=== PATIENT | female | born 1995 | race Caucasian/White ===

== ENCOUNTER 2017-06-12 21:04 | Emergency (ER) | payer SELFPAY ==
[2017-06-12] MEDS ORDERED: Sodium Chloride 0.9% 1000 ML 1,000 ML IV STA (21:38)
[2017-06-12] MEDS ORDERED: Vancomycin 1GM/ Ns 250ML*** 1 GM/250 ML IVPB IV ONE (21:39)
[2017-06-12] MEDS ORDERED: Sodium Chloride 0.9% 1000 ML 1,000 ML ONE (21:45)
[2017-06-12] MEDS ORDERED: Vancomycin 1GM/ Ns 250ML*** 250 ML IV ONE (21:45)
--- NOTE | 2017-06-12 21:45 | ERPHSYRPT ---
- History of Present Illness Time Seen by Provider: 06/12/17 21:22 Source: patient Exam Limitations: clinical condition Patient Subjective Stated Complaint: Pt reports wound area left breast for a few weeks, increasing in size. Site is warm to touch and red per pt. Denies fevers. Reports taking tylenol this morning. Rates pain 8/10. Describes as pressure. Triage Nursing Assessment: Pt alert, oriented, answers all questions appropriately. SKin pink, warm, dry. Resps non-labored. Pt ambulatory to tx room , steady gait noted. Reddened swollen area noted under left breast. Area very firm and warm to touch. Small open area noted at crease of breast. No active drainage noted. Physician History: PATIENT COMPLAINS OF A LUMP OVER INNER ASPECT OF LEFT BREAST WITH INCREASED SWELLING, REDNESS, AND PAIN OVER PAST 2 WEEK. DENIES FEVER, OR CHILLS. Timing/Duration: week(s), worse Severity: moderate Associated Symptoms: other (PAIN, REDNESS) Allergies/Adverse Reactions: Penicillins Allergy (Severe, Verified 06/12/17 21:15) Swelling Hx Tetanus, Diphtheria Vaccination/Date Given: Yes Hx Influenza Vaccination/Date Given: Yes Hx Pneumococcal Vaccination/Date Given: No Immunizations Up to Date: Yes - Review of Systems Constitutional: No Fever, No Chills Eyes: No Symptoms Ears, Nose, & Throat: No Symptoms Respiratory: No Cough, No Dyspnea Cardiac: No Chest Pain, No Edema, No Syncope Abdominal/Gastrointestinal: No Symptoms, No Abdominal Pain, No Nausea, No Vomiting, No Diarrhea Genitourinary Symptoms: No Symptoms, No Dysuria Musculoskeletal: No Symptoms, No Back Pain, No Neck Pain Skin: Other (LEFT BREAST SWELLING WITH REDNESS), No Rash Neurological: No Dizziness, No Focal Weakness, No Sensory Changes Psychological: No Symptoms Endocrine: No Symptoms All Other Systems: Reviewed and Negative - Past Medical History Pertinent Past Medical History: Yes Neurological History: No Pertinent History ENT History: No Pertinent History Cardiac History: No Pertinent History Respiratory History: No Pertinent History Endocrine Medical History: No Pertinent History Musculoskeletal History: Fractures, Other GI Medical History: No Pertinent History History: No Pertinent History Psycho-Social History: No Pertinent History Female Reproductive Disorders: No Pertinent History Other Medical History: lt arm fx, pancreatitis - Past Surgical History Past Surgical History: No Neuro Surgical History: No Pertinent History Cardiac: No Pertinent History Respiratory: No Pertinent History Gastrointestinal: No Pertinent History Genitourinary: No Pertinent History Musculoskeletal: No Pertinent History Female Surgical History: No Pertinent History - Social History Smoking Status: Never smoker Exposure to second hand smoke: No Alcohol Use: None Drug Use: none Patient Lives Alone: No Significant Family History: no pertinent family hx - Female History Hx Last Menstrual Period: last month Hx Now: No - Nursing Vital Signs Nursing Vital Signs: Initial Vital Signs Temperature 98.1 F 06/12/17 21:11 Pulse Rate 108 H 06/12/17 21:11 Respiratory Rate 16 06/12/17 21:11 Blood Pressure 116/56 06/12/17 21:11 O2 Sat by Pulse Oximetry 98 06/12/17 21:11 Pain Scale Pain Intensity 8 - Physical Exam General Appearance: no apparent distress, alert Eye Exam: PERRL/EOMI, eyes nml inspection Ears, Nose, Throat Exam: normal ENT inspection, TMs normal, pharynx normal, moist mucous membranes Neck Exam: normal inspection, non-tender, supple, full range of motion Respiratory Exam: normal breath sounds, lungs clear, No respiratory distress Cardiovascular Exam: regular rate/rhythm, normal heart sounds, normal peripheral pulses Gastrointestinal/Abdomen Exam: soft, normal bowel sounds, No tenderness, No mass Back Exam: normal inspection, normal range of motion, No CVA tenderness, No vertebral tenderness Extremity Exam: normal inspection, normal range of motion, pelvis stable Neurologic Exam: alert, oriented x 3, cooperative, normal mood/affect, nml cerebellar function, nml station & gait, sensation nml, No motor deficits Skin Exam: warm, dry, other (CHEST WALL, LEFT BREAST THERE IS AN NONFLUCTUANT SWELLLIN 1CM X 1CM OVER THE INNER LOWER QUADRANT OF LEFT BREAST WITH SURROUNDING ERYTHEMA 2.5CM X 3CM, NO DRAINAGE NOTED), No rash Lymphatic Exam: No adenopathy SpO2: 98 Oxygen Delivery: Room Air Ordered Tests: Active Orders 24 hr Category Date Time Status IV Insertion STAT Care 06/12/17 22:04 Active BLOOD CULTURE Stat Lab 06/12/17 22:00 Received CBC W DIFF Stat Lab 06/12/17 22:00 Completed Medication Summary Generic Name Dose Route Start Last Admin Trade Name Freq PRN Reason Stop Dose Admin Sodium Chloride 1,000 mls @ 999 mls/hr 06/12/17 21:38 06/12/17 21:48 Sodium Chloride 0.9% 1000 Ml IV 06/12/17 22:38 999 mls/hr .Q1H1M STA Administration Vancomycin HCl 1 gm in 250 mls @ 167 mls/hr 06/12/17 21:39 06/12/17 21:48 Vancomycin 1gm/ Ns 250ml IV 06/12/17 23:08 167 mls/hr STAT ONE Administration Discontinued Medications Generic Name Dose Route Start Last Admin Trade Name Swapna PRN Reason Stop Dose Admin Sodium Chloride Confirm 06/12/17 21:45 Sodium Chloride 0.9% 1000 Ml Administered 06/12/17 21:46 Dose 1,000 mls @ ud .ROUTE .STK-MED ONE Vancomycin HCl Confirm 06/12/17 21:45 Vancomycin 1gm/ Ns 250ml Administered 06/12/17 21:46 Dose 250 mls @ ud IV .STK-MED ONE Lab/Rad Data: Laboratory Result Diagrams 06/12/17 22:00 Laboratory Results 06/12/17 Range/Units 22:00 WBC 9.6 (4.0-10.5) K/mm3 RBC 4.47 (4.1-5.4) M/mm3 Hgb 11.6 L (12.0-16.0) gm/dl Hct 35.4 (35-47) % MCV 79.2 (78-100) fl MCH 25.9 L (26-32) pg MCHC 32.8 (32-36) g/dl RDW 14.1 H (11.5-14.0) % Plt Count 293 (150-450) K/mm3 MPV 9.6 H (6-9.5) fl Gran % 65.3 (36.0-66.0) % Lymphocytes % 26.9 (24.0-44.0) % Monocytes % 6.5 (0.0-12.0) % Eosinophils % 1.0 (0.00-5.0) % Basophils % 0.3 (0.0-0.4) % Basophils # 0.03 (0-0.4) - Progress Progress: unchanged Progress Note: 06/12/17 21:45 AFTER 2 SETS OF BLOOD CULTURES, VANCOMYCIN 1GM IVPB AND IV NORMAL SALINE 1 LITER WIDE OPEN. Counseled pt/family regarding: lab results, diagnosis, need for follow-up - Departure Time of Disposition: 22:45 Departure Disposition: Home Clinical Impression: LEFT BREAST CELLULITIS Condition: Stable Critical Care Time: No Referrals: AUDREY COPPOLA [Primary Care Provider] - Additional Instructions: BEGIN ANTIBIOTIC CLINDAMYCIN 300MG EVERY 8 HOURS FOR 10 DAYS. NORCO 10/325 EVERY 4 HOURS FOR PAIN NEEDED. CONSULT YOUR PRIMARY CARE PROVIDER FOR EVALUATION IN 3 DAYS FOR APPOINTMENT. TYLENOL OR MOTRIN NEEDED FOR FEVER. Prescriptions: Hydrocodone/APAP 10/325 mg [[place] 10/325 MG Tablet] 1 tab PO Q4H PRN PRN # 15 tablet MDD 4 PRN Reason: Moderate Pain Clindamycin HCl 300 mg PO TID #30 capsule
[2017-06-12 22:10] LABS: BASOPHIL % 0.3 % (0.0-0.4); Granulocytes % 65.3 % (36.0-66.0); Lymphocytes % 26.9 % (24.0-44.0); Mean Cell Volume 79.2 fl (78-100); Mean Platelet Volume 9.6 fl (6-9.5); Monocytes % 6.5 % (0.0-12.0); Platelet Count 293 K/mm3 (150-450); Red Blood Count 4.47 M/mm3 (4.1-5.4); Red Cell Distribution Width 14.1 % (11.5-14.0); White Blood Count 9.6 K/mm3 (4.0-10.5)
[2017-06-12 22:11] LABS: Mean Corpuscular Hemoglobin 25.9 pg (26-32)
[2017-06-12] MEDS ORDERED: NORCO 5/325 MG PO ONE (22:46)
[2017-06-12] MEDS ORDERED: NORCO 5/325 MG ONE (23:27)
[2017-06-12] MEDS ORDERED: BENADRYL 50 MG/ML IV ONE (23:32)
[2017-06-12] MEDS ORDERED: solu-MEDROL 125 MG IV ONE (23:32)
[2017-06-12] MEDS ORDERED: solu-MEDROL 125 MG ONE (23:38)
[2017-06-12] MEDS ORDERED: BENADRYL 50 MG/ML ONE (23:38)
[2017-06-13 00:17] VITALS: BP 108/73; PULSE 87; O2SAT 100
== END 2017-06-13 00:16 | disposition home or self-care (01) ==
LOC: ED 21:04
DX: N61.0 Mastitis without abscess (principal); T36.8X5A Adverse effect of other systemic antibiotics, initial encounter
CPT/HCPCS: 36000; 36415; 85025; 87040; 96360; 96374; 96375; 99284; J1200; J2930; J3370; A9270-GY

== ENCOUNTER 2018-09-04 03:45 | Emergency (ER) | payer MEDICAID ==
[2018-09-04] MEDS ORDERED: Pepcid 20 MG VIAL IV ONE (04:22)
[2018-09-04 04:37] LABS: Appearance CLEAR (CLEAR); Bilirubin NEGATIVE (NEGATIVE); Blood NEGATIVE Ery/ul (0-5); Glucose NEGATIVE (NEGATIVE); Ketones NEGATIVE (NEGATIVE); Leukocyte Esterase NEGATIVE (NEGATIVE); Mucus SLIGHT /HPF (NEGATIVE); Nitrite NEGATIVE (NEGATIVE); Protein,Urine Dip NEGATIVE (Negative); Specific Gravity 1.011 (1.005-1.025); Urobilinogen NEGATIVE mg/dL (0-1)
[2018-09-04 05:25] LABS: BASOPHIL % 0.2 % (0.0-0.4); Basophil (Absolute #) 0.02 (0-0.4); Eosinophil % 1.3 % (0.00-5.0); Eosinophil (Absolute #) 0.15 (0-0.5); Granulocyte Absolute (ANC) 7.63 (1.4-6.9); Granulocytes % 68.6 % (36.0-66.0); Hematocrit 34.5 % (35-47); Hemoglobin 11.3 gm/dl (12.0-16.0); Lymphocyte (Absolute #) 2.63 (1.0-4.6); Lymphocytes % 23.7 % (24.0-44.0); Mean Cell Volume 79.9 fl (78-100); Mean Corpuscular Hgb Concent. 32.8 g/dl (32-36); Monocyte (Absolute #) 0.69 (0.0-1.3); Monocytes % 6.2 % (0.0-12.0); Platelet Count 270 K/mm3 (150-450); Red Blood Count 4.32 M/mm3 (4.1-5.4); White Blood Count 11.1 K/mm3 (4.0-10.5)
[2018-09-04 05:27] LABS: Mean Corpuscular Hemoglobin 26.1 pg (26-32)
[2018-09-04 05:36] LABS: ALBUMIN 4.5 g/dL (3.5-5.0); ALKALINE PHOSPHATASE 75 U/L (38-126); AMYLASE 66 U/L (30-110); ANION GAP 14.7 MEQ/L (5-15); BLOOD UREA NITROGEN 14 mg/dL (7-17); CHLORIDE 101 mmol/L (98-107); Calcium 9.3 mg/dL (8.4-10.2); Carbon Dioxide 25 mmol/L (22-30); Creatinine 1 0.63 mg/dL (0.52-1.04); Glucose 133 mg/dL (74-106); LIPASE 72 U/L (23-300); Potassium 3.8 mmol/L (3.5-5.1); SGOT/AST 16 U/L (14-36); SGPT/ALT 20 U/L (0-35); SODIUM 136 mmol/L (137-145); Total Protein 7.6 g/dL (6.3-8.2)
[2018-09-04] MEDS: Sodium Chloride 0.9% 1000 ML 1,000 ML IV STA ×2 (06:07→07:28)
[2018-09-04] MEDS ORDERED: Pepcid 20 MG PO ONE (06:08)
[2018-09-04] MEDS: Zofran 4 MG/2 ML VIAL IV ONE ×2 (06:08→07:28)
[2018-09-04] MEDS ORDERED: Pepcid 20 MG ONE (06:09)
[2018-09-04] MEDS ORDERED: Zofran 4 MG/2 ML VIAL ONE (07:20)
[2018-09-04] MEDS ORDERED: Sodium Chloride 0.9% 1000 ML 1,000 ML ONE (07:21)
--- NOTE | 2018-09-04 07:51 | XRAY ---
Indication: Abdomen pain and nausea. History of pancreatitis. Multiple contiguous axial images obtained through the abdomen and pelvis using 80 cc Isovue 370 contrast. Comparison: March 17, 2014. Lung bases are clear. Heart is not enlarged. Noncontrasted stomach and bowel loops appear nonobstructed. Normal appendix. New small pelvic and right lower quadrant free fluid. No walled off fluid collection or free air. Remaining liver, gallbladder, pancreas, spleen, adrenal glands, kidneys, ureters, bladder, uterus, and aorta appear unremarkable. No pathologic retroperitoneal lymphadenopathy. Osseous structures intact. No ventral or inguinal hernias. Impression: 1. New small pelvic and right lower quadrant free fluid of uncertain etiology. Normal-appearing appendix. 2. Remaining CT abdomen/pelvis with contrast exam is negative. Comment: Preliminary interpretation was made by [facility]. No discrepancy. CTDI 23.27
--- NOTE | 2018-09-04 07:56 | ERPHSYRPT ---
- History of Present Illness Historian: patient Exam Limitations: no limitations Patient Subjective Stated Complaint: pt is alert and oriented. pt is ambulatory with a steady gait. pt comes in with c/o abd pain beginning around 0000 of . pt states that she's having generalized abd pain. upon palpation her pain is in her RUQ and LLQ. pt bowel sounds present x4. pt states she has be nauseous but denies vomiting and diarrhea. Triage Nursing Assessment: see above Physician History: Pt is a 22 y/o female that presented to the ED with complains of diffuse abdominal pain. Pt has nausea, but no vomiting. No F/C/S. No SOB or cough. No chest pain or palpitations. Pt denies chest discomfort, or palpitations. No dysuria, frequency or urgency. Timing/Duration: today Activities at Onset: none Quality: aching Abdominal Pain Onset Location: generalized abdomen Pain Radiation: no radiation Severity of Pain-Max: mild Severity of Pain-Current: mild Modifying Factors: Improves With: analgesics Associated Symptoms: denies symptoms Previous symptoms: no prior history Allergies/Adverse Reactions: Penicillins Allergy (Severe, Verified 06/12/17 21:15) Swelling Home Medications: No Reportable Medications [No Reported Medications] 09/04/18 [History] Hx Tetanus, Diphtheria Vaccination/Date Given: Yes Hx Influenza Vaccination/Date Given: Yes Hx Pneumococcal Vaccination/Date Given: No Immunizations Up to Date: Yes - Review of Systems Constitutional: No Fever, No Chills Eyes: No Symptoms Ears, Nose, & Throat: No Symptoms Respiratory: No Cough, No Dyspnea Cardiac: No Chest Pain, No Edema, No Syncope Abdominal/Gastrointestinal: Abdominal Pain, Nausea Genitourinary Symptoms: No Dysuria Musculoskeletal: No Back Pain, No Neck Pain Neurological: No Dizziness, No Focal Weakness, No Sensory Changes - Past Medical History Pertinent Past Medical History: Yes Neurological History: No Pertinent History ENT History: No Pertinent History Cardiac History: No Pertinent History Respiratory History: No Pertinent History Endocrine Medical History: No Pertinent History Musculoskeletal History: Fractures, Other GI Medical History: Pancreatitis History: No Pertinent History Psycho-Social History: No Pertinent History Female Reproductive Disorders: No Pertinent History Other Medical History: lt arm fx, pancreatitis - Past Surgical History Past Surgical History: No Neuro Surgical History: No Pertinent History Cardiac: No Pertinent History Respiratory: No Pertinent History Gastrointestinal: No Pertinent History Genitourinary: No Pertinent History Musculoskeletal: No Pertinent History Female Surgical History: No Pertinent History - Social History Smoking Status: Never smoker Exposure to second hand smoke: No Alcohol Use: None Drug Use: none Patient Lives Alone: No Significant Family History: no pertinent family hx - Female History Hx Now: No - Nursing Vital Signs Nursing Vital Signs: Initial Vital Signs Temperature 98.4 F 09/04/18 03:53 Pulse Rate 94 H 09/04/18 03:53 Respiratory Rate 18 09/04/18 03:53 Blood Pressure 108/79 09/04/18 03:53 O2 Sat by Pulse Oximetry 95 09/04/18 03:53 Pain Scale Pain Intensity 5 - Physical Exam General Appearance: no apparent distress, alert Eye Exam: PERRL/EOMI, eyes nml inspection Ears, Nose, Throat Exam: normal ENT inspection, pharynx normal, moist mucous membranes Neck Exam: normal inspection, non-tender, supple, full range of motion Respiratory Exam: normal breath sounds, lungs clear, No respiratory distress Cardiovascular Exam: regular rate/rhythm, normal heart sounds Gastrointestinal/Abdomen Exam: tenderness (Mild, diffused) Extremity Exam: normal inspection, normal range of motion, pelvis stable Neurologic Exam: alert, oriented x 3, cooperative, normal mood/affect, nml cerebellar function, sensation nml, No motor deficits SpO2: 99 - Course Nursing assessment & vital signs reviewed: Yes - CT Exams Abdomen/Pelvis CT Interpretation: Negative Ordered Tests: Active Orders 24 hr Category Date Time Status IV Insertion STAT Care 09/04/18 04:22 Active ABDOMEN AND PELVIS W CONTRAST [CT] Stat Exams 09/04/18 04:23 Taken AMYLASE Stat Lab 09/04/18 05:20 Completed CBC W DIFF Stat Lab 09/04/18 05:20 Completed CMP Stat Lab 09/04/18 05:20 Completed HCG,QUALITATIVE URINE Stat Lab 09/04/18 04:00 Completed LIPASE Stat Lab 09/04/18 05:20 Completed UA W/RFX UR CULTURE Stat Lab 09/04/18 04:00 Completed Medication Summary Discontinued Medications Generic Name Dose Route Start Last Admin Trade Name Freq PRN Reason Stop Dose Admin Famotidine 20 mg 09/04/18 04:22 09/04/18 06:07 Pepcid 20 Mg Vial IV 09/04/18 04:23 Not Given STAT ONE Famotidine 40 mg 09/04/18 06:08 09/04/18 06:11 Pepcid 20 Mg PO 09/04/18 06:09 40 mg STAT ONE Administration Famotidine Confirm 09/04/18 06:09 Pepcid 20 Mg Administered 09/04/18 06:10 Dose 40 mg .ROUTE .STK-MED ONE Sodium Chloride 1,000 mls @ 999 mls/hr 09/04/18 04:22 09/04/18 07:28 Sodium Chloride 0.9% 1000 Ml IV 09/04/18 05:22 999 mls/hr .Q1H1M STA Administration Sodium Chloride Confirm 09/04/18 07:21 Sodium Chloride 0.9% 1000 Ml Administered 09/04/18 07:22 Dose 1,000 mls @ ud .ROUTE .STK-MED ONE Ondansetron HCl 4 mg 09/04/18 04:22 09/04/18 07:28 Zofran 4 Mg/2 Ml Vial IV 09/04/18 04:23 4 mg STAT ONE Administration Ondansetron HCl Confirm 09/04/18 07:20 Zofran 4 Mg/2 Ml Vial Administered 09/04/18 07:21 Dose 4 mg .ROUTE .STK-MED ONE Lab/Rad Data: Laboratory Result Diagrams 09/04/18 05:20 09/04/18 05:20 Laboratory Results 09/04/18 09/04/18 09/04/18 Range/Units 05:20 05:20 04:00 WBC 11.1 H (4.0-10.5) K/mm3 RBC 4.32 (4.1-5.4) M/mm3 Hgb 11.3 L (12.0-16.0) gm/dl Hct 34.5 L (35-47) % MCV 79.9 (78-100) fl MCH 26.1 (26-32) pg MCHC 32.8 (32-36) g/dl RDW 14.0 (11.5-14.0) % Plt Count 270 (150-450) K/mm3 MPV 9.0 (6-9.5) fl Gran % 68.6 H (36.0-66.0) % Eos # (Auto) 0.15 (0-0.5) Absolute Lymphs (auto) 2.63 (1.0-4.6) Absolute Monos (auto) 0.69 (0.0-1.3) Lymphocytes % 23.7 L (24.0-44.0) % Monocytes % 6.2 (0.0-12.0) % Eosinophils % 1.3 (0.00-5.0) % Basophils % 0.2 (0.0-0.4) % Absolute Granulocytes 7.63 H (1.4-6.9) Basophils # 0.02 (0-0.4) Sodium 136 L (137-145) mmol/L Potassium 3.8 (3.5-5.1) mmol/L Chloride 101 (98-107) mmol/L Carbon Dioxide 25 (22-30) mmol/L Anion Gap 14.7 (5-15) MEQ/L BUN 14 (7-17) mg/dL Creatinine 0.63 (0.52-1.04) mg/dL Estimated GFR > 60.0 ML/MIN Glucose 133 H (74-106) mg/dL Calcium 9.3 (8.4-10.2) mg/dL Total Bilirubin 0.30 (0.2-1.3) mg/dL AST 16 (14-36) U/L ALT 20 (0-35) U/L Alkaline Phosphatase 75 (38-126) U/L Serum Total Protein 7.6 (6.3-8.2) g/dL Albumin 4.5 (3.5-5.0) g/dL Amylase 66 (30-110) U/L Lipase 72 (23-300) U/L Urine Color (YELLOW) Urine Appearance (CLEAR) Urine pH (5-6) Ur Specific [place] (1.005-1.025) Urine Protein (Negative) Urine Ketones (NEGATIVE) Urine Blood (0-5) He/ul Urine Nitrite (NEGATIVE) Urine Bilirubin (NEGATIVE) Urine Urobilinogen (0-1) mg/dL Ur Leukocyte Esterase (NEGATIVE) Urine WBC (Auto) (0-5) /HPF Urine RBC (Auto) (0-2) /HPF U Epithel Cells (Auto) (FEW) /HPF Urine Bacteria (Auto) (NEGATIVE) /HPF Urine Mucus (Auto) (NEGATIVE) /HPF Urine Culture Reflexed (NO) Urine Glucose (NEGATIVE) mg/dL Urine HCG, Qual NEGATIVE (Negative) 09/04/18 Range/Units 04:00 WBC (4.0-10.5) K/mm3 RBC (4.1-5.4) M/mm3 Hgb (12.0-16.0) gm/dl Hct (35-47) % MCV (78-100) fl MCH (26-32) pg MCHC (32-36) g/dl RDW (11.5-14.0) % Plt Count (150-450) K/mm3 MPV (6-9.5) fl Gran % (36.0-66.0) % Eos # (Auto) (0-0.5) Absolute Lymphs (auto) (1.0-4.6) Absolute Monos (auto) (0.0-1.3) Lymphocytes % (24.0-44.0) % Monocytes % (0.0-12.0) % Eosinophils % (0.00-5.0) % Basophils % (0.0-0.4) % Absolute Granulocytes (1.4-6.9) Basophils # (0-0.4) Sodium (137-145) mmol/L Potassium (3.5-5.1) mmol/L Chloride (98-107) mmol/L Carbon Dioxide (22-30) mmol/L Anion Gap (5-15) MEQ/L BUN (7-17) mg/dL Creatinine (0.52-1.04) mg/dL Estimated GFR ML/MIN Glucose (74-106) mg/dL Calcium (8.4-10.2) mg/dL Total Bilirubin (0.2-1.3) mg/dL AST (14-36) U/L ALT (0-35) U/L Alkaline Phosphatase (38-126) U/L Serum Total Protein (6.3-8.2) g/dL Albumin (3.5-5.0) g/dL Amylase (30-110) U/L Lipase (23-300) U/L Urine Color STRAW (YELLOW) Urine Appearance CLEAR (CLEAR) Urine pH 5.0 (5-6) Ur Specific [place] 1.011 (1.005-1.025) Urine Protein NEGATIVE (Negative) Urine Ketones NEGATIVE (NEGATIVE) Urine Blood NEGATIVE (0-5) He/ul Urine Nitrite NEGATIVE (NEGATIVE) Urine Bilirubin NEGATIVE (NEGATIVE) Urine Urobilinogen NEGATIVE (0-1) mg/dL Ur Leukocyte Esterase NEGATIVE (NEGATIVE) Urine WBC (Auto) NONE (0-5) /HPF Urine RBC (Auto) NONE (0-2) /HPF U Epithel Cells (Auto) NONE (FEW) /HPF Urine Bacteria (Auto) NONE (NEGATIVE) /HPF Urine Mucus (Auto) SLIGHT (NEGATIVE) /HPF Urine Culture Reflexed NO (NO) Urine Glucose NEGATIVE (NEGATIVE) mg/dL Urine HCG, Qual (Negative) - Progress Progress: improved Progress Note: 09/04/18 07:54 Pt was evaluated in the ED. Her labs are normal, besides a minimal leukocytosis , that can be related to ruptured ovarian cyst. CT of abdomen does not show any pathology, but some fluid secondary to ovarian cyst, that probably ruptured. Pt was cleared to d/c to home. She can use OTC Ibuprofen as needed for pain. Pt should f/u with PCP next week. Will see patient in: office Counseled pt/family regarding: need for follow-up - Departure Time of Disposition: 07:56 Departure Disposition: Home Clinical Impression: Abdominal pain Condition: Stable Critical Care Time: No Referrals: AUDREY COPPOLA [Primary Care Provider] - Additional Instructions: F/U with PCP next week. Use Ibuprofen on as needed basis for pain.
[2018-09-04 08:16] VITALS: BP 115/68; PULSE 71; O2SAT 98
== END 2018-09-04 08:16 | disposition home or self-care (01) ==
LOC: ED 03:45
DX: R10.11 Right upper quadrant pain (principal); R10.32 Left lower quadrant pain; R11.0 Nausea; D72.829 Elevated white blood cell count, unspecified; N83.209 Unspecified ovarian cyst, unspecified side
CPT/HCPCS: 36000; 36415; 74177; 80053; 81001; 82150; 83690; 84703; 85025; 96374; 99284; J2405; A9270-GY

== ENCOUNTER 2019-02-13 13:03 | Emergency (ER) | payer MEDICAID ==
--- NOTE | 2019-02-13 13:34 | ERPHSYRPT ---
- History of Present Illness Time Seen by Provider: 02/13/19 13:19 Source: patient Exam Limitations: no limitations Patient Subjective Stated Complaint: PT states "On wednesday, my child was diagnosed with impetigo and I think I have it now. 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 Pt has red dots on feet, legs, arms and torso. Physician History: Pt states, her daughter was diagnosed with Impetigo 3 days ago, she noticed few exanthems on her legs and arms at the same time ( her mother is here with similar symptoms) She denies cough,SOB, chest pain, nausea, headaches, fever, throat swelling or other complaints. She took Benadryl, denies other medications. Timing/Duration: day(s) (3) Quality: itchy Severity: mild Location: extremities Possible Causes: no cause identified Modifying Factors: Improves With: antihistamine Associated Symptoms: denies symptoms Allergies/Adverse Reactions: Penicillins Allergy (Severe, Verified 06/12/17 21:15) Swelling Hx Tetanus, Diphtheria Vaccination/Date Given: No Hx Influenza Vaccination/Date Given: Yes Hx Pneumococcal Vaccination/Date Given: No Immunizations Up to Date: Yes - Review of Systems Constitutional: No Symptoms Eyes: No Symptoms Ears, Nose, & Throat: No Symptoms Respiratory: No Symptoms Cardiac: No Symptoms Abdominal/Gastrointestinal: No Symptoms Genitourinary Symptoms: No Symptoms Musculoskeletal: No Symptoms Skin: Pruritis, Rash All Other Systems: Reviewed and Negative - Past Medical History Pertinent Past Medical History: Yes Neurological History: No Pertinent History ENT History: No Pertinent History Cardiac History: No Pertinent History Respiratory History: No Pertinent History Endocrine Medical History: No Pertinent History Musculoskeletal History: Fractures, Other GI Medical History: Pancreatitis History: No Pertinent History Psycho-Social History: No Pertinent History Female Reproductive Disorders: No Pertinent History Other Medical History: lt arm fx, pancreatitis - Past Surgical History Past Surgical History: No Neuro Surgical History: No Pertinent History Cardiac: No Pertinent History Respiratory: No Pertinent History Gastrointestinal: No Pertinent History Genitourinary: No Pertinent History Musculoskeletal: No Pertinent History Female Surgical History: No Pertinent History - Social History Smoking Status: Former smoker Exposure to second hand smoke: No Alcohol Use: None Drug Use: none Patient Lives Alone: No Significant Family History: no pertinent family hx - Female History Hx Last Menstrual Period: 01/16/2019 Hx Now: No - Nursing Vital Signs Nursing Vital Signs: Initial Vital Signs Temperature 98.4 F 02/13/19 13:14 Pulse Rate 102 H 02/13/19 13:14 Respiratory Rate 18 02/13/19 13:14 Blood Pressure 123/79 02/13/19 13:14 O2 Sat by Pulse Oximetry 98 02/13/19 13:14 Pain Scale Pain Intensity 0 - Physical Exam General Appearance: no apparent distress Eye Exam: eyes nml inspection Ears, Nose, Throat Exam: normal ENT inspection, pharynx normal, moist mucous membranes Neck Exam: normal inspection, non-tender, supple, No JVD Cardiovascular Exam: regular rate/rhythm, normal heart sounds, normal peripheral pulses, capillary refill <2 sec, No murmur Gastrointestinal/Abdomen Exam: soft, normal bowel sounds, No tenderness Back Exam: normal inspection, No CVA tenderness Extremity Exam: normal inspection, No calf tenderness, No pedal edema Neurologic Exam: alert, oriented x 3, cooperative, normal mood/affect Skin Exam: normal color, warm, dry, rash (few, solitary, few mm, pink exanthems , some with slight scaling on the top on few, no blisters, other lesions, no pustules, good distal pulses and sensation.) Lymphatic Exam: No adenopathy, No axilla node tender (L), No axilla node tender (R), No inguinal node tender (L), No inguinal node tender (R) SpO2 Interpretation: normal SpO2: 99 O2 Delivery: Room Air - Course Nursing assessment & vital signs reviewed: Yes - Progress Progress: unchanged Progress Note: 02/13/19 13:32 Pt was reassured about the benign nature of her exanthems ( possible insect bites, without any sign of infection) she was discharged on Medrol Dosepak, to rest x 1-2 days, drink plenty of fluids, and continue Benadryl and externals as needed, follow up with her physician if not better in 2-3 days. Counseled pt/family regarding: diagnosis, need for follow-up - Departure Departure Disposition: Home Clinical Impression: Rash and nonspecific skin eruption Condition: Stable Critical Care Time: No Referrals: AUDREY COPPOLA [Primary Care Provider] - Instructions: Insect Bites and Stings (DC), Impetigo (DC), Folliculitis (DC) Additional Instructions: Rest x 2-3 days, drink plenty of fluids, and use Benadryl, externals as needed, follow up with your physician if not better in 2-3 days, return if severe pain, swelling, difficulty breathing or fever> 102 F! Prescriptions: Methylprednisolone Packet [Medrol Dosepack] 4 mg PO UD #1 packet
[2019-02-13 13:57] VITALS: BP 120/74; PULSE 74; O2SAT 98
== END 2019-02-13 14:04 | disposition home or self-care (01) ==
LOC: ED 13:03
DX: R21 Rash and other nonspecific skin eruption (principal)
CPT/HCPCS: 99283

== ENCOUNTER 2019-02-28 13:19 | Emergency (ER) | payer MEDICAID ==
[2019-02-28 13:26] VITALS: BP 145/73; PULSE 86; O2SAT 98
--- NOTE | 2019-02-28 13:36 | ERPHSYRPT ---
- History of Present Illness Source: patient Exam Limitations: no limitations Patient Subjective Stated Complaint: Pt states "I have a wisdom tooth coming in and the dentist cannot get me in until 2 weeks but now my lower jaw is swollen and I am having a hard time eating." Triage Nursing Assessment: Pt presented alert and oriented X 3, skin pwd. Pt ambulates with an upright steady gait, able to speak in clear full sentences. Pt in no apparent respiratory distress. Physician History: Pt is a 23 y/o female that presented to the ED with complains of tooth ache and swelling of the R side of the mandible. Pt states, she is not able to chew on that side, and she has swollen gums, and cheek on the R. Pt denies F/C/S. No SOB or cough. No N/V/D or abdominal pain. Timing/Duration: gradual onset Severity: moderate ENT Location: mouth (R lower mandible) Prearrival Treatment: no prearrival treatment Modifying Factors: Improves With: nothing Associated Symptoms: ear pain (R), jaw pain (R lower jaw) Allergies/Adverse Reactions: Penicillins Allergy (Severe, Verified 06/12/17 21:15) Swelling Hx Tetanus, Diphtheria Vaccination/Date Given: No Hx Influenza Vaccination/Date Given: Yes Hx Pneumococcal Vaccination/Date Given: No Immunizations Up to Date: Yes - Review of Systems Constitutional: No Fever, No Chills Eyes: No Symptoms Ears, Nose, & Throat: Mouth Pain (R lower jaw pain from the tooth) Respiratory: No Cough, No Dyspnea Cardiac: No Chest Pain, No Edema, No Syncope Abdominal/Gastrointestinal: No Abdominal Pain, No Nausea, No Vomiting, No Diarrhea - Past Medical History Pertinent Past Medical History: Yes Neurological History: No Pertinent History ENT History: No Pertinent History Cardiac History: No Pertinent History Respiratory History: No Pertinent History Endocrine Medical History: No Pertinent History Musculoskeletal History: Fractures, Other GI Medical History: Pancreatitis History: No Pertinent History Psycho-Social History: No Pertinent History Female Reproductive Disorders: No Pertinent History Other Medical History: lt arm fx, pancreatitis - Past Surgical History Past Surgical History: No Neuro Surgical History: No Pertinent History Cardiac: No Pertinent History Respiratory: No Pertinent History Gastrointestinal: No Pertinent History Genitourinary: No Pertinent History Musculoskeletal: No Pertinent History Female Surgical History: No Pertinent History - Social History Smoking Status: Former smoker Exposure to second hand smoke: No Alcohol Use: None Drug Use: none Patient Lives Alone: No Significant Family History: no pertinent family hx - Female History Hx Last Menstrual Period: 01/21/2019 Hx Now: No - Nursing Vital Signs Nursing Vital Signs: Initial Vital Signs Temperature 99.1 F 02/28/19 13:22 Pulse Rate 86 02/28/19 13:22 Respiratory Rate 16 02/28/19 13:22 Blood Pressure 145/73 02/28/19 13:22 O2 Sat by Pulse Oximetry 98 02/28/19 13:22 Pain Scale Pain Intensity 5 - Physical Exam General Appearance: mild distress, alert Eye Exam: bilateral eye: PERRL, EOMI Throat Exam: dental tenderness (R lower mandible pain) SpO2 Interpretation: normal SpO2: 98 O2 Delivery: Room Air - Course Nursing assessment & vital signs reviewed: Yes - Progress Progress: unchanged Progress Note: 02/28/19 13:37 Pt was educated about the need to see a dentist. She will be getting a prescription for Clindamycin, and she should f/u with a dentist ELVIRA, to take care of the tooth. Discussed with : Gali Will see patient in: office Counseled pt/family regarding: need for follow-up - Departure Departure Disposition: Home Clinical Impression: Tooth ache Condition: Stable Critical Care Time: No Referrals: AUDREY COPPOLA [Primary Care Provider] - Additional Instructions: F/U with Dentist ELVIRA Prescriptions: Clindamycin HCl 300 mg PO TID 10 Days #30 capsule
== END 2019-02-28 13:55 | disposition home or self-care (01) ==
LOC: ED 13:19
DX: K08.89 Other specified disorders of teeth and supporting structures (principal)
CPT/HCPCS: 99283

== ENCOUNTER 2019-05-24 21:51 | Emergency (ER) | payer MEDICAID ==
[2019-05-24] MEDS ORDERED: TORAdol 30 mg Injection IM ONE (22:28)
[2019-05-24] MEDS ORDERED: CLEOCIN 150 MG CAPSULE PO ONE (22:29)
--- NOTE | 2019-05-24 22:35 | ERPHSYRPT ---
- History of Present Illness Time Seen by Provider: 05/24/19 22:10 Source: patient Exam Limitations: no limitations Patient Subjective Stated Complaint: pt state she thinks she has infection in her rt lower gum. state she has been having increased pain and swelling and is unable to get to see her dentist until 06/07 Triage Nursing Assessment: pt alert and oriented, answers questions approp. respirations nonlaboredw ith lungs cta. mild swelling noted to rt lower jaw and some redness noted to rt lower gums. Physician History: 3 years old female with history of periodontal disease presented in the ER visit one week history of progressive swelling and pain lower jaw smashed on the right side associated with gingival swelling. She's been using ibuprofen with no significant relief. Patient describes moderate intensity sharp pain especially with movement such and that eased cold/hot sensitivities. Timing/Duration: gradual onset Severity: moderate ENT Location: dental Prearrival Treatment: over the counter meds Associated Symptoms: facial pain/swelling, sore throat, tooth pain, No ear pain (R), No ear pain (L), No fever, No chills, No jaw pain, No malaise Allergies/Adverse Reactions: Penicillins Allergy (Severe, Verified 05/24/19 22:04) Swelling Hx Tetanus, Diphtheria Vaccination/Date Given: No Hx Influenza Vaccination/Date Given: Yes Hx Pneumococcal Vaccination/Date Given: No Immunizations Up to Date: No - Review of Systems Constitutional: No Symptoms Eyes: No Symptoms Ears, Nose, & Throat: Throat Pain, Painful Swallowing, No Throat Swelling Respiratory: No Symptoms Cardiac: No Symptoms Abdominal/Gastrointestinal: No Symptoms Genitourinary Symptoms: No Symptoms Musculoskeletal: No Symptoms Skin: No Symptoms Neurological: No Symptoms Psychological: No Symptoms Endocrine: No Symptoms - Past Medical History Pertinent Past Medical History: Yes Neurological History: No Pertinent History ENT History: No Pertinent History Cardiac History: No Pertinent History Respiratory History: No Pertinent History Endocrine Medical History: No Pertinent History Musculoskeletal History: Fractures, Other GI Medical History: Pancreatitis History: No Pertinent History Psycho-Social History: No Pertinent History Female Reproductive Disorders: No Pertinent History Other Medical History: lt arm fx, pancreatitis - Past Surgical History Past Surgical History: No Neuro Surgical History: No Pertinent History Cardiac: No Pertinent History Respiratory: No Pertinent History Gastrointestinal: No Pertinent History Genitourinary: No Pertinent History Musculoskeletal: No Pertinent History Female Surgical History: No Pertinent History - Social History Smoking Status: Never smoker Exposure to second hand smoke: No Alcohol Use: None Drug Use: none Patient Lives Alone: No Significant Family History: no pertinent family hx - Female History Hx Last Menstrual Period: last week Hx Now: No - Nursing Vital Signs Nursing Vital Signs: Initial Vital Signs Pulse Rate 88 05/24/19 21:55 Respiratory Rate 18 05/24/19 21:55 Blood Pressure 137/82 05/24/19 21:55 O2 Sat by Pulse Oximetry 99 05/24/19 21:55 Pain Scale Pain Intensity 8 - Physical Exam General Appearance: no apparent distress, alert Eye Exam: bilateral eye: normal inspection, PERRL, EOMI Ear Exam: bilateral ear: auricle normal, canal normal, TM normal Nasal Exam: normal inspection Throat Exam: No mandibular swelling, No maxillary swelling Neck Exam: normal inspection Cardiovascular/Respiratory Exam: chest non-tender, normal breath sounds, regular rate/rhythm Abdominal Exam: non-tender, soft, no organomegaly Neurologic Exam: alert, oriented x 3, cooperative Skin Exam: normal color, warm SpO2 Interpretation: normal SpO2: 99 O2 Delivery: Room Air - Course Nursing assessment & vital signs reviewed: Yes Ordered Tests: Medication Summary Generic Name Dose Route Start Last Admin Trade Name Freq PRN Reason Stop Dose Admin Clindamycin HCl 300 mg 05/24/19 22:29 Cleocin 150 Mg Capsule PO 05/24/19 22:30 STAT ONE Ketorolac Tromethamine 60 mg 05/24/19 22:28 Toradol 30 Mg Injection IM 05/24/19 22:29 STAT ONE - Progress Progress: pain not gone completely, re-examined Counseled pt/family regarding: diagnosis, need for follow-up - Departure Departure Disposition: Home Clinical Impression: Periodontal disease, Gingivitis Condition: Stable Critical Care Time: No Referrals: AUDREY COPPOLA [Primary Care Provider] - MAEVE REID DDS [NON-STAFF PHY W/O PRIVILEGES] - (1-2 days for re evaluation ) Instructions: Periodontal Disease, Gingivitis (DC) Additional Instructions: followup dentist for reevaluation. Continue with antibiotics and take ibuprofen /Tylenol as needed. Prescriptions: Ibuprofen 600 mg PO Q6HPRN PRN 10 Days #20 tablet PRN Reason: Pain Clindamycin HCl 150 mg [Cleocin 150 mg Capsule] 2 cap PO TID #42 capsule
[2019-05-24] MEDS ORDERED: TORAdol 30 mg Injection ONE (22:36)
[2019-05-24] MEDS ORDERED: CLEOCIN 150 MG CAPSULE ONE (22:36)
[2019-05-24 23:15] VITALS: BP 120/76; PULSE 63; O2SAT 100
== END 2019-05-24 23:15 | disposition home or self-care (01) ==
LOC: ED 21:51
DX: K05.6 Periodontal disease, unspecified (principal); K05.10 Chronic gingivitis, plaque induced
CPT/HCPCS: 96372; 99283; J1885; A9270-GY

== ENCOUNTER 2020-04-23 05:56 | Day surgery (SDC) | payer OTHER ==
[2020-04-23] MEDS ORDERED: XYLOCAINE 1% HCL 20 ML MDV ONE (07:07)
[2020-04-23 08:18] VITALS: BP 143/72; PULSE 73; O2SAT 99
--- NOTE | 2020-04-23 11:53 | OP ---
SURGERY DATE/TIME: 04/23/2020 0753 PREOPERATIVE DIAGNOSIS: Infected sebaceous cyst of the back. POSTOPERATIVE DIAGNOSIS: Infected sebaceous cyst of the back. PROCEDURE: Incision and drainage of sebaceous cyst, culture and packing with Iodoform gauze. SURGEON: Dr. Ruiz. ANESTHESIA: Local. HISTORY: The patient is a 24 year old white female who had developed problems with sebaceous cyst becoming infected, becoming red, warm and tender. She was placed on oral antibiotics for four days. The patient reported she was not improving. She was therefore suggested to come in for surgery for incision and drainage and packing. The patient was discussed the risks of the procedure which is bleeding, wound infection which it is already infected, reaction to local medication. The patient verbalized her understanding and desired to have the procedure performed. DESCRIPTION OF PROCEDURE: The patient was prepped and draped in the right lateral decubitus position. The area was prepped and draped. The area was anesthetized using lidocaine 1%. A sharp incision was made over the sebaceous cyst. Upon entry to the cyst itself it was draining brownish material which was cultured. The cyst was removed piecemeal and then packed with Iodoform gauze. The patient was dressed with Telfa and then 4x4 dressing over the top. The patient was awake during the procedure and afterwards we discussed with her removing approximately 0.5 inch of the packing at a time and redressing it on a daily basis. She is to continue the Bactrim and see me in the office in six days or sooner if she has any problems in the interim.
== END 2020-04-23 08:27 | disposition home or self-care (01) ==
LOC: SDC 05:56
PROVIDERS: ATTEND Family Medicine
DX: L72.3 Sebaceous cyst (principal)
CPT/HCPCS: 87070

== ENCOUNTER 2021-02-21 17:36 | Emergency (ER) | payer OTHER ==
--- NOTE | 2021-02-21 17:42 | ERPHSYRPT ---
- History of Present Illness Historian: patient Exam Limitations: no limitations Timing/Duration: week(s) (1) Activities at Onset: none Abdominal Pain Onset Location: generalized abdomen Severity of Pain-Max: mild Severity of Pain-Current: mild Modifying Factors: Improves With: vomiting Associated Symptoms: nausea, shortness of breath, vomiting, No chest pain, No diarrhea, No fever/chills Previous symptoms: no prior history Hx Tetanus, Diphtheria Vaccination/Date Given: No Hx Influenza Vaccination/Date Given: Yes Hx Pneumococcal Vaccination/Date Given: No <AMOL EDWARDS - Last Filed: 02/21/21 18:45> <CÉSAR SARMIENTO - Last Filed: 02/21/21 20:20> - History of Present Illness Time Seen by Provider: 02/21/21 17:42 Physician History: This is a 25-year-old female who is approximately 11 weeks and 6 days and has had a ultrasound showing a single intrauterine fetus at 7 weeks of age and presents with vomiting symptoms first followed by some abdominal wall pain. She can no longer hold any liquids down. Her flow floor attendant is Dr. Avila. She has not had any diarrhea. She denies any dysuria or hematuria. She denies chest pain. She is having worsening shortness of breath. Patient denies having any vaginal bleeding (AMOL EDWARDS) Allergies/Adverse Reactions: Penicillins Allergy (Severe, Verified 02/21/21 18:03) Swelling Home Medications: Etonogestrel [Nexplanon] 68 mg SQ UD 04/22/20 [History] Sulfamethoxazole/Trimethoprim [Bactrim 400-80 mg Tablet] 1 each PO BID 04/22/20 [History] Travel Risk - International Travel Have you traveled outside of the country in past 3 weeks: No - Coronavirus Screening Are you exhibiting any of the following symptoms?: No Close contact with a COVID-19 positive Pt in past 14-21 Days: No <AMOL EDWARDS - Last Filed: 02/21/21 18:45> - Review of Systems Constitutional: No Symptoms Eyes: No Symptoms Ears, Nose, & Throat: No Symptoms Respiratory: No Symptoms Cardiac: No Symptoms Abdominal/Gastrointestinal: Abdominal Pain, Nausea, Vomiting, No Diarrhea, No Constipation Genitourinary Symptoms: No Symptoms, No Vaginal Bleeding Musculoskeletal: No Symptoms Skin: No Symptoms Neurological: No Symptoms Psychological: No Symptoms Endocrine: No Symptoms Hematologic/Lymphatic: No Symptoms Immunological/Allergic: No Symptoms All Other Systems: Reviewed and Negative <AMOL EDWARDS - Last Filed: 02/21/21 18:45> - Past Medical History Pertinent Past Medical History: Yes Neurological History: No Pertinent History ENT History: No Pertinent History Cardiac History: No Pertinent History Respiratory History: No Pertinent History Endocrine Medical History: No Pertinent History Musculoskeletal History: Fractures, Other GI Medical History: Pancreatitis History: No Pertinent History Psycho-Social History: No Pertinent History Female Reproductive Disorders: No Pertinent History Other Medical History: lt arm fx, pancreatitis - Past Surgical History Past Surgical History: No Neuro Surgical History: No Pertinent History Cardiac: No Pertinent History Respiratory: No Pertinent History Gastrointestinal: No Pertinent History Genitourinary: No Pertinent History Musculoskeletal: No Pertinent History Female Surgical History: No Pertinent History - Social History Smoking Status: Never smoker Exposure to second hand smoke: No Alcohol Use: None Drug Use: none Patient Lives Alone: No Significant Family History: no pertinent family hx <AMOL EDWARDS - Last Filed: 02/21/21 18:45> - Physical Exam General Appearance: no apparent distress, alert, anxiety Eye Exam: PERRL/EOMI Ears, Nose, Throat Exam: normal ENT inspection, moist mucous membranes Neck Exam: normal inspection, non-tender, supple, full range of motion Respiratory Exam: normal breath sounds, lungs clear, airway intact, No chest tenderness, No respiratory distress Cardiovascular Exam: regular rate/rhythm, normal heart sounds, normal peripheral pulses Gastrointestinal/Abdomen Exam: soft, normal bowel sounds, No tenderness Pelvic Exam: not done Rectal Exam: not done Back Exam: normal inspection, normal range of motion, No CVA tenderness, No vertebral tenderness Extremity Exam: normal inspection, normal range of motion, pelvis stable Neurologic Exam: alert, oriented x 3, cooperative, pension fund manager II-XII nml as tested, normal mood/affect, nml cerebellar function, nml station & gait, sensation nml Skin Exam: normal color, warm, dry Lymphatic Exam: No adenopathy SpO2 Interpretation: normal O2 Delivery: Room Air <AMOL EDWARDS - Last Filed: 02/21/21 18:45> - Nursing Vital Signs Nursing Vital Signs: Initial Vital Signs Temperature 97.5 F 02/21/21 17:42 Pulse Rate 91 H 02/21/21 17:42 Respiratory Rate 19 02/21/21 17:42 Blood Pressure 95/83 02/21/21 17:42 O2 Sat by Pulse Oximetry 99 02/21/21 17:42 Pain Scale Pain Intensity 4 - Course Nursing assessment & vital signs reviewed: Yes <AMOL EDWARDS FangJenan - Last Filed: 02/21/21 18:45> Ordered Tests: Active Orders 24 hr Category Date Time Status IV Insertion STAT Care 02/21/21 18:16 Active AMYLASE Stat Lab 02/21/21 18:54 Completed CBC W DIFF Stat Lab 02/21/21 18:54 Completed CMP Stat Lab 02/21/21 18:54 Completed CULTURE,URINE Stat Lab 02/21/21 18:18 Received HCG, Quantitative (Inhouse) Stat Lab 02/21/21 18:54 Completed LIPASE Stat Lab 02/21/21 18:54 Completed Lactic Acid Stat Lab 02/21/21 18:50 Completed UA W/RFX UR CULTURE Stat Lab 02/21/21 18:18 Completed Medication Summary Discontinued Medications Generic Name Dose Route Start Last Admin Trade Name Edvinq PRN Reason Stop Dose Admin Sodium Chloride 1,000 mls @ 999 mls/hr 02/21/21 18:16 02/21/21 19:44 Sodium Chloride 0.9% 1000 Ml IV 02/21/21 19:16 Infused .Q1H1M STA Infusion Sodium Chloride Confirm 02/21/21 18:24 Sodium Chloride 0.9% 1000 Ml Administered 02/21/21 18:25 Dose 1,000 mls @ ud .ROUTE .STK-MED ONE Nitrofurantoin Macrocrystals 100 mg 02/21/21 20:05 02/21/21 20:16 Macrobid 100mg Capsule PO 02/21/21 20:06 100 mg STAT ONE Administration Nitrofurantoin Macrocrystals Confirm 02/21/21 20:14 Macrobid 100mg Capsule Administered 02/21/21 20:15 Dose 100 mg .ROUTE .STK-MED ONE Ondansetron HCl 4 mg 02/21/21 18:16 02/21/21 18:27 Zofran 4 Mg/2 Ml Vial IV 02/21/21 18:17 4 mg STAT ONE Administration Ondansetron HCl Confirm 02/21/21 18:24 Zofran 4 Mg/2 Ml Vial Administered 02/21/21 18:25 Dose 4 mg .ROUTE .STK-MED ONE Lab/Rad Data: Laboratory Result Diagrams 02/21/21 18:54 02/21/21 18:54 Laboratory Results 02/21/21 02/21/21 02/21/21 Range/Units 18:54 18:54 18:50 WBC 10.2 (4.0-10.5) K/mm3 RBC 4.02 L (4.1-5.4) M/mm3 Hgb 10.9 L (12.0-16.0) gm/dl Hct 32.9 L (35-47) % MCV 81.8 (78-100) fl MCH 27.1 (26-32) pg MCHC 33.1 (32-36) g/dl RDW 13.8 (11.5-14.0) % Plt Count 252 (150-450) K/mm3 MPV 9.0 (7.5-11.0) fl Gran % 76.1 H (36.0-66.0) % Eos # (Auto) 0.09 (0-0.5) Absolute Lymphs (auto) 1.72 (1.0-4.6) Absolute Monos (auto) 0.60 (0.0-1.3) Lymphocytes % 16.9 L (24.0-44.0) % Monocytes % 5.9 (0.0-12.0) % Eosinophils % 0.9 (0.00-5.0) % Basophils % 0.2 (0.0-0.4) % Absolute Granulocytes 7.73 H (1.4-6.9) Basophils # 0.02 (0-0.4) Sodium 134 L (137-145) mmol/L Potassium 3.7 (3.5-5.1) mmol/L Chloride 104 (98-107) mmol/L Carbon Dioxide 20 L (22-30) mmol/L Anion Gap 13.4 (5-15) MEQ/L BUN 7 (7-17) mg/dL Creatinine 0.43 L (0.52-1.04) mg/dL Estimated GFR > 60.0 ML/MIN Glucose 95 (74-106) mg/dL Lactic Acid 0.5 (0.4-2.0) Calcium 8.8 (8.4-10.2) mg/dL Total Bilirubin 0.20 (0.2-1.3) mg/dL AST 22 (14-36) U/L ALT 19 (0-35) U/L Alkaline Phosphatase 61 (38-126) U/L Serum Total Protein 6.6 (6.3-8.2) g/dL Albumin 3.7 (3.5-5.0) g/dL Amylase 56 (30-110) U/L Lipase 48 (23-300) U/L Beta HCG, Quant 92317 mIU/ml Urine Color (YELLOW) Urine Appearance (CLEAR) Urine pH (5-6) Ur Specific [place] (1.005-1.025) Urine Protein (Negative) Urine Ketones (NEGATIVE) Urine Blood (0-5) He/ul Urine Nitrite (NEGATIVE) Urine Bilirubin (NEGATIVE) Urine Urobilinogen (0-1) mg/dL Ur Leukocyte Esterase (NEGATIVE) Urine WBC (Auto) (0-5) /HPF Urine RBC (Auto) (0-2) /HPF U Epithel Cells (Auto) (FEW) /HPF Urine Bacteria (Auto) (NEGATIVE) /HPF Urine Mucus (Auto) (NEGATIVE) /HPF Urine Culture Reflexed (NO) Urine Glucose (NEGATIVE) mg/dL 02/21/21 Range/Units 18:18 WBC (4.0-10.5) K/mm3 RBC (4.1-5.4) M/mm3 Hgb (12.0-16.0) gm/dl Hct (35-47) % MCV (78-100) fl MCH (26-32) pg MCHC (32-36) g/dl RDW (11.5-14.0) % Plt Count (150-450) K/mm3 MPV (7.5-11.0) fl Gran % (36.0-66.0) % Eos # (Auto) (0-0.5) Absolute Lymphs (auto) (1.0-4.6) Absolute Monos (auto) (0.0-1.3) Lymphocytes % (24.0-44.0) % Monocytes % (0.0-12.0) % Eosinophils % (0.00-5.0) % Basophils % (0.0-0.4) % Absolute Granulocytes (1.4-6.9) Basophils # (0-0.4) Sodium (137-145) mmol/L Potassium (3.5-5.1) mmol/L Chloride (98-107) mmol/L Carbon Dioxide (22-30) mmol/L Anion Gap (5-15) MEQ/L BUN (7-17) mg/dL Creatinine (0.52-1.04) mg/dL Estimated GFR ML/MIN Glucose (74-106) mg/dL Lactic Acid (0.4-2.0) Calcium (8.4-10.2) mg/dL Total Bilirubin (0.2-1.3) mg/dL AST (14-36) U/L ALT (0-35) U/L Alkaline Phosphatase (38-126) U/L Serum Total Protein (6.3-8.2) g/dL Albumin (3.5-5.0) g/dL Amylase (30-110) U/L Lipase (23-300) U/L Beta HCG, Quant mIU/ml Urine Color ARTURO (YELLOW) Urine Appearance CLOUDY (CLEAR) Urine pH 5.0 (5-6) Ur Specific [place] 1.031 (1.005-1.025) Urine Protein 30 (Negative) Urine Ketones NEGATIVE (NEGATIVE) Urine Blood NEGATIVE (0-5) He/ul Urine Nitrite NEGATIVE (NEGATIVE) Urine Bilirubin NEGATIVE (NEGATIVE) Urine Urobilinogen 2 (0-1) mg/dL Ur Leukocyte Esterase MODERATE (NEGATIVE) Urine WBC (Auto) 6-10 (0-5) /HPF Urine RBC (Auto) 3-5 (0-2) /HPF U Epithel Cells (Auto) MODERATE (FEW) /HPF Urine Bacteria (Auto) RARE (NEGATIVE) /HPF Urine Mucus (Auto) MANY (NEGATIVE) /HPF Urine Culture Reflexed YES (NO) Urine Glucose NEGATIVE (NEGATIVE) mg/dL - Progress Progress: improved Counseled pt/family regarding: lab results, diagnosis, need for follow-up <AMOL EDWARDS - Last Filed: 02/21/21 18:45> - Progress Progress: improved <CÉSAR SARMIENTO - Last Filed: 02/21/21 20:20> - Progress Progress Note: 02/21/21 18:48 I am to signing this patient out to Dr. Sarmiento. The signout is at shift change. I reviewed the patient history, physical findings, and pending results that he needs to follow-up on. He will make the final disposition. He accepts to do so. (AMOL EDWARDS) 02/21/21 20:09 25 years old 2 para 1 at around 11 weeks gestation is evaluated for nausea with minimal abdominal pain and vomiting x3. Patient does not have any vaginal bleeding discharge, pelvic cramping. On my evaluation abdominal exam is soft nontender. Feeling better after fluids and Zofran. Work-up showed mild dehydration and UTI. Patient is allergic to penicillin which gives her hives and swelling all over, fosfomycin is not available here, no other options but Macrobid which is not the best choice but I believe it would be beneficial to give this to patient at this point. I do not think she needs any further work- up or ultrasound and also Dr. Edwards did not think patient needs ultrasound as well. She is stable for discharge with outpatient primary care and OB Dr. Avila follow-up recommended. Discussed signs symptoms of worsening needing return to ER which she seems understanding. Stable for discharge. (CÉSAR SARMIENTO) - Departure Departure Disposition: Home Critical Care Time: No <AMLO EDWARDS - Last Filed: 02/21/21 18:45> - Departure Departure Disposition: Home Critical Care Time: No <CÉSAR SARMIENTO - Last Filed: 02/21/21 20:20> - Departure Clinical Impression: Nausea and vomiting during UTI in Qualifiers: Trimester: first trimester Qualified Code(s): O23.41 - Unspecified infection of urinary tract in , first trimester Condition: Stable Referrals: AUDREY COPPOLA [Primary Care Provider] - VIRGILIO AVILA MD [ACTIVE STAFF] - (Follow-up in 3 days for reevaluation) Instructions: Stomach Pain in Early , Urinary Tract Infections in Additional Instructions: Use Zofran and Tylenol as needed. Keep yourself well-hydrated. Follow-up with your OB for reevaluation on Wednesday. Return to ER for worsening abdominal pain, vomiting, if develop vaginal bleeding discharge/pelvic cramping etc. Prescriptions: Nitrofurantoin Macro 100 mg [Macrobid 100MG Capsule] 100 mg PO BID #10 cap
[2021-02-21] MEDS ORDERED: Zofran 4 MG/2 ML VIAL IV ONE (18:16)
[2021-02-21] MEDS ORDERED: Sodium Chloride 0.9% 1000 ML 1,000 ML IV STA (18:16)
[2021-02-21] MEDS ORDERED: Sodium Chloride 0.9% 1000 ML 1,000 ML ONE (18:24)
[2021-02-21] MEDS ORDERED: Zofran 4 MG/2 ML VIAL ONE (18:24)
[2021-02-21 18:58] LABS: Absolute Neutrophil Ct (ANC) 7.73 (1.4-6.9); BASOPHIL % 0.2 % (0.0-0.4); Basophil (Absolute #) 0.02 (0-0.4); Eosinophil % 0.9 % (0.00-5.0); Eosinophil (Absolute #) 0.09 (0-0.5); Hematocrit 32.9 % (35-47); Hemoglobin 10.9 gm/dl (12.0-16.0); Lymphocyte (Absolute #) 1.72 (1.0-4.6); Lymphocytes % 16.9 % (24.0-44.0); Mean Cell Volume 81.8 fl (78-100); Mean Corpuscular Hemoglobin 27.1 pg (26-32); Mean Corpuscular Hgb Concent. 33.1 g/dl (32-36); Monocytes % 5.9 % (0.0-12.0); Neutrophil % 76.1 % (36.0-66.0); Platelet Count 252 K/mm3 (150-450); Red Blood Count 4.02 M/mm3 (4.1-5.4); Red Cell Distribution Width 13.8 % (11.5-14.0); White Blood Count 10.2 K/mm3 (4.0-10.5)
[2021-02-21 18:58] LABS: Appearance CLOUDY (CLEAR); Bacteria RARE /HPF (NEGATIVE); Bilirubin NEGATIVE (NEGATIVE); Blood NEGATIVE Ery/ul (0-5); Epithelial Cells MODERATE /HPF (FEW); Glucose NEGATIVE (NEGATIVE); Ketones NEGATIVE (NEGATIVE); Leukocyte Esterase MODERATE (NEGATIVE); Mucus MANY /HPF (NEGATIVE); Nitrite NEGATIVE (NEGATIVE); Protein,Urine Dip 30 (Negative); Specific Gravity 1.031 (1.005-1.025); Urobilinogen 2 mg/dL (0-1)
[2021-02-21 19:26] LABS: ALBUMIN 3.7 g/dL (3.5-5.0); ALKALINE PHOSPHATASE 61 U/L (38-126); AMYLASE 56 U/L (30-110); ANION GAP 13.4 MEQ/L (5-15); BLOOD UREA NITROGEN 7 mg/dL (7-17); CHLORIDE 104 mmol/L (98-107); Calcium 8.8 mg/dL (8.4-10.2); Carbon Dioxide 20 mmol/L (22-30); Creatinine 1 0.43 mg/dL (0.52-1.04); EST GLOMERULAR FILTRATION RATE > 60.0 ML/MIN; Glucose 95 mg/dL (74-106); LIPASE 48 U/L (23-300); Potassium 3.7 mmol/L (3.5-5.1); SGOT/AST 22 U/L (14-36); SGPT/ALT 19 U/L (0-35); SODIUM 134 mmol/L (137-145); Total Protein 6.6 g/dL (6.3-8.2)
[2021-02-21 19:51] LABS: HCG, Quantitative (Inhouse) 83423 mIU/ml
[2021-02-21] MEDS ORDERED: Macrobid 100MG Capsule PO ONE (20:05)
[2021-02-21] MEDS ORDERED: Macrobid 100MG Capsule ONE (20:14)
[2021-02-21 20:17] VITALS: BP 116/76; PULSE 82; O2SAT 97
== END 2021-02-21 20:33 | disposition home or self-care (01) ==
LOC: ED 17:36
DX: O23.41 Unspecified infection of urinary tract in pregnancy, first trimester (principal); Z3A.11 11 weeks gestation of pregnancy; R10.9 Unspecified abdominal pain; R11.2 Nausea with vomiting, unspecified
CPT/HCPCS: 36000; 36415; 80053; 81001; 82150; 83605; 83690; 84702; 85025; 87086; 96360; 96374; 99284; J2405; A9270-GY

== ENCOUNTER 2021-02-25 13:10 | Emergency (ER) | payer OTHER ==
[2021-02-25] MEDS ORDERED: Sodium Chloride 0.9% 1000 ML 1,000 ML IV STA (13:50)
[2021-02-25] MEDS ORDERED: Zofran 4 MG/2 ML VIAL IV ONE (13:51)
--- NOTE | 2021-02-25 13:54 | ERPHSYRPT ---
- History of Present Illness Time Seen by Provider: 02/25/21 13:40 Source: patient Exam Limitations: no limitations Patient Subjective Stated Complaint: " I am 12 weeks and I've been sick, I was here a couple days ago but my symptoms are worse. I've been around someone who thinks they have Covid. " Triage Nursing Assessment: Pt presents to ER with complaints of abdominal pain, nausea, vomiting, diarrhea, body aches, headache. Physician History: Patient is a 25-year-old female presents to emergency department for evaluation of nausea vomiting diarrhea myalgias and headache. Patient is 12 weeks old. Patient states she has Zofran at home. Patient states that Zofran does not help her nausea and vomiting. Patient has a urinary tract infection but states she is currently on antibiotics that her symptoms are improving. Patient has no pelvic or vaginal complaints. No vaginal discharge. No pelvic cramping. Patient is otherwise healthy. Symptoms are mild to moderate in intensity. No specific worsening improving factors. Patient voices no other complaints or concerns at this time. Timing/Duration: yesterday Severity: moderate Modifying Factors: Improves With: nothing Associated Symptoms: nausea, vomiting, chest pain, headaches, syncope, No abdominal pain, No fever, No malaise Allergies/Adverse Reactions: Penicillins Allergy (Severe, Verified 02/21/21 18:03) Swelling Home Medications: Ondansetron [Ondansetron Odt] 4 mg PO BID PRN 02/25/21 [History] Pnv No.95/Ferrous Fum/Folic AC [ Multivitamin Tablet] 1 tab PO DAILY 02/25/21 [History] Hx Tetanus, Diphtheria Vaccination/Date Given: Yes Hx Influenza Vaccination/Date Given: Yes Hx Pneumococcal Vaccination/Date Given: No Immunizations Up to Date: Yes Travel Risk - International Travel Have you traveled outside of the country in past 3 weeks: No - Coronavirus Screening Are you exhibiting any of the following symptoms?: Yes Symptoms: Cough: New Onset, Vomiting/Diarrhea, Headaches/Body Aches/Fatigue - Vaccine Status Have you recieved a Covid-19 vaccination: No - Review of Systems Constitutional: No Symptoms, No Fever, No Chills Eyes: No Symptoms Ears, Nose, & Throat: No Symptoms Respiratory: No Symptoms, No Cough, No Dyspnea Cardiac: No Symptoms, No Chest Pain, No Edema, No Syncope Abdominal/Gastrointestinal: No Symptoms, No Abdominal Pain, No Nausea, No Vomiting, No Diarrhea Genitourinary Symptoms: No Symptoms, No Dysuria Musculoskeletal: No Symptoms, No Back Pain, No Neck Pain Skin: No Symptoms, No Rash Neurological: No Symptoms, No Dizziness, No Focal Weakness, No Sensory Changes Psychological: No Symptoms Endocrine: No Symptoms Hematologic/Lymphatic: No Symptoms Immunological/Allergic: No Symptoms All Other Systems: Reviewed and Negative - Past Medical History Pertinent Past Medical History: Yes Neurological History: No Pertinent History ENT History: No Pertinent History Cardiac History: No Pertinent History Respiratory History: No Pertinent History Endocrine Medical History: No Pertinent History Musculoskeletal History: Fractures, Other GI Medical History: Pancreatitis History: No Pertinent History Psycho-Social History: No Pertinent History Female Reproductive Disorders: No Pertinent History Other Medical History: lt arm fx, pancreatitis - Past Surgical History Past Surgical History: No Neuro Surgical History: No Pertinent History Cardiac: No Pertinent History Respiratory: No Pertinent History Gastrointestinal: No Pertinent History Genitourinary: No Pertinent History Musculoskeletal: No Pertinent History Female Surgical History: No Pertinent History - Social History Smoking Status: Never smoker Exposure to second hand smoke: No Alcohol Use: None Drug Use: none Patient Lives Alone: No Significant Family History: no pertinent family hx - Female History Hx Now: No - Nursing Vital Signs Nursing Vital Signs: Initial Vital Signs Temperature 98.7 F 02/25/21 13:26 Pulse Rate 104 H 02/25/21 13:26 Respiratory Rate 20 02/25/21 13:26 Blood Pressure 121/81 02/25/21 13:26 O2 Sat by Pulse Oximetry 94 L 02/25/21 13:26 Pain Scale Pain Intensity 0 - Physical Exam General Appearance: no apparent distress, alert Eye Exam: PERRL/EOMI, eyes nml inspection Ears, Nose, Throat Exam: normal ENT inspection, TMs normal, pharynx normal, moist mucous membranes Neck Exam: normal inspection, non-tender, supple, full range of motion Respiratory Exam: normal breath sounds, lungs clear, No respiratory distress Cardiovascular Exam: regular rate/rhythm, normal heart sounds, normal peripheral pulses Gastrointestinal/Abdomen Exam: soft, normal bowel sounds, other (Gravid abdomen), No tenderness, No mass Back Exam: normal inspection, normal range of motion, No CVA tenderness, No vertebral tenderness Extremity Exam: normal inspection, normal range of motion, pelvis stable Neurologic Exam: alert, oriented x 3, cooperative, normal mood/affect, nml cerebellar function, nml station & gait, sensation nml, No motor deficits Skin Exam: normal color, warm, dry, No rash Lymphatic Exam: No adenopathy SpO2 Interpretation: normal SpO2: 94 O2 Delivery: Room Air - Course Nursing assessment & vital signs reviewed: Yes Ordered Tests: Active Orders 24 hr Category Date Time Status IV Insertion STAT Care 02/25/21 13:50 Active CBC W DIFF Stat Lab 02/25/21 13:54 Completed CMP Stat Lab 02/25/21 13:54 Completed Medication Summary Discontinued Medications Generic Name Dose Route Start Last Admin Trade Name Freq PRN Reason Stop Dose Admin Sodium Chloride 1,000 mls @ 999 mls/hr 02/25/21 13:50 02/25/21 15:04 Sodium Chloride 0.9% 1000 Ml IV 02/25/21 14:50 999 mls/hr .Q1H1M STA Administration Sodium Chloride Confirm 02/25/21 15:02 Sodium Chloride 0.9% 1000 Ml Administered 02/25/21 15:03 Dose 1,000 mls @ ud .ROUTE .STK-MED ONE Ondansetron HCl 4 mg 02/25/21 13:51 02/25/21 15:05 Zofran 4 Mg/2 Ml Vial IV 02/25/21 13:52 4 mg STAT ONE Administration Ondansetron HCl Confirm 02/25/21 15:01 Zofran 4 Mg/2 Ml Vial Administered 02/25/21 15:02 Dose 4 mg .ROUTE .STK-MED ONE Lab/Rad Data: Laboratory Result Diagrams 02/25/21 13:54 02/25/21 13:54 Laboratory Results 02/25/21 02/25/21 Range/Units 13:54 13:54 WBC 9.7 (4.0-10.5) K/mm3 RBC 4.61 (4.1-5.4) M/mm3 Hgb 14.6 (12.0-16.0) gm/dl Hct 43.6 (35-47) % MCV 94.6 (78-100) fl MCH 31.7 (26-32) pg MCHC 33.5 (32-36) g/dl RDW 12.6 (11.5-14.0) % Plt Count 308 (150-450) K/mm3 MPV 9.2 (7.5-11.0) fl Gran % 50.0 (36.0-66.0) % Eos # (Auto) 0.18 (0-0.5) Absolute Lymphs (auto) 4.05 (1.0-4.6) Absolute Monos (auto) 0.57 (0.0-1.3) Lymphocytes % 41.8 (24.0-44.0) % Monocytes % 5.9 (0.0-12.0) % Eosinophils % 1.9 (0.00-5.0) % Basophils % 0.4 (0.0-0.4) % Absolute Granulocytes 4.86 (1.4-6.9) Basophils # 0.04 (0-0.4) Sodium 137 (137-145) mmol/L Potassium 4.2 (3.5-5.1) mmol/L Chloride 106 (98-107) mmol/L Carbon Dioxide 19 L (22-30) mmol/L Anion Gap 16.6 H (5-15) MEQ/L BUN 29 H (7-17) mg/dL Creatinine 1.06 H (0.52-1.04) mg/dL Estimated GFR > 60.0 ML/MIN Glucose 98 (74-106) mg/dL Calcium 9.7 (8.4-10.2) mg/dL Total Bilirubin 0.60 (0.2-1.3) mg/dL AST 29 (14-36) U/L ALT 15 (0-35) U/L Alkaline Phosphatase 207 H (38-126) U/L Serum Total Protein 7.2 (6.3-8.2) g/dL Albumin 4.5 (3.5-5.0) g/dL - Progress Progress: improved Progress Note: Patient reassessed. She feels well. Vital stable. Patient tolerated p.o. IV fluids infused. Patient voiced no other complaints concerns at this time. Will discharge home. 02/25/21 15:45 Portions of this note were created with voice recognition technology. There may be grammatical, spelling, punctuation or sound alike errors 02/25/21 15:46 Counseled pt/family regarding: lab results, diagnosis, need for follow-up - Departure Departure Disposition: Home Clinical Impression: Nausea and vomiting during , Diarrhea Condition: Stable Critical Care Time: No Referrals: AUDREY COPPOLA [Primary Care Provider] - Additional Instructions: Discharge/Care Plan ANDREA CARBAJAL was seen on 02/25/21 in the Emergency Room. The patient was counseled regarding Diagnosis,Lab results, Imaging studies, need for follow up and when to return to the Emergency Room. Prescriptions given: Discharge Note I have spoken with the patient and/or caregivers. I have explained the patient's condition, diagnosis and treatment plan based on the information available to me at this time. I have answered the patient's and/or caregiver's questions and addressed any concerns. The patient and/or caregivers have as good understanding of the patient's diagnosis, condition and treatment plan as can be expected at this point. The vital signs have been stable. The patient's condition is stable and appropriate for discharge from the emergency department. The patient will pursue further outpatient evaluation with the primary care physician or other designated or consulting physician as outlined in the discharge instructions. The patient and/or caregivers are agreeable to this plan of care and follow-up instructions have been explained in detail. The patient and/or caregivers have received these instruction. The patient/and or caregivers are aware that any significant change in condition or worsening of symptoms should prompt an immediate return to this or the closest emergency department or call 911.
[2021-02-25 13:56] LABS: Absolute Neutrophil Ct (ANC) 4.86 (1.4-6.9); BASOPHIL % 0.4 % (0.0-0.4); Basophil (Absolute #) 0.04 (0-0.4); Eosinophil % 1.9 % (0.00-5.0); Eosinophil (Absolute #) 0.18 (0-0.5); Hematocrit 43.6 % (35-47); Hemoglobin 14.6 gm/dl (12.0-16.0); Lymphocyte (Absolute #) 4.05 (1.0-4.6); Lymphocytes % 41.8 % (24.0-44.0); Mean Cell Volume 94.6 fl (78-100); Mean Corpuscular Hemoglobin 31.7 pg (26-32); Mean Corpuscular Hgb Concent. 33.5 g/dl (32-36); Mean Platelet Volume 9.2 fl (7.5-11.0); Monocyte (Absolute #) 0.57 (0.0-1.3); Monocytes % 5.9 % (0.0-12.0); Platelet Count 308 K/mm3 (150-450); Red Blood Count 4.61 M/mm3 (4.1-5.4); Red Cell Distribution Width 12.6 % (11.5-14.0); White Blood Count 9.7 K/mm3 (4.0-10.5)
[2021-02-25 14:08] LABS: ALBUMIN 4.5 g/dL (3.5-5.0); ALKALINE PHOSPHATASE 207 U/L (38-126); ANION GAP 16.6 MEQ/L (5-15); BLOOD UREA NITROGEN 29 mg/dL (7-17); CHLORIDE 106 mmol/L (98-107); Calcium 9.7 mg/dL (8.4-10.2); Carbon Dioxide 19 mmol/L (22-30); Creatinine 1 1.06 mg/dL (0.52-1.04); EST GLOMERULAR FILTRATION RATE > 60.0 ML/MIN; Glucose 98 mg/dL (74-106); Potassium 4.2 mmol/L (3.5-5.1); SGOT/AST 29 U/L (14-36); SGPT/ALT 15 U/L (0-35); SODIUM 137 mmol/L (137-145); Total Protein 7.2 g/dL (6.3-8.2)
[2021-02-25] MEDS ORDERED: Zofran 4 MG/2 ML VIAL ONE (15:01)
[2021-02-25] MEDS ORDERED: Sodium Chloride 0.9% 1000 ML 1,000 ML ONE (15:02)
[2021-02-25 15:24] VITALS: BP 109/59; PULSE 79
[2021-02-25 15:46] VITALS: O2SAT 94
== END 2021-02-25 16:15 | disposition home or self-care (01) ==
LOC: ED 13:10
DX: R11.2 Nausea with vomiting, unspecified (principal); R19.7 Diarrhea, unspecified; Z3A.12 12 weeks gestation of pregnancy
CPT/HCPCS: 36000; 36415; 80053; 85025; 96360; 96374; 99284; U0003; J2405

== ENCOUNTER 2021-05-08 14:30 | Observation (INO) | payer OTHER ==
[2021-05-08 15:18] VITALS: BP 116/59; PULSE 90; O2SAT 96
[2021-05-08 15:52] LABS: Amphetamine,Urine NEGATIVE (NEGATIVE); Barbiturate,Urine NEGATIVE (NEGATIVE); Benzodiazepine,Urine NEGATIVE (NEGATIVE); Cocaine,Urine NEGATIVE (NEGATIVE); Methadone,Urine NEGATIVE (NEGATIVE); Opiate,Urine NEGATIVE (NEGATIVE); PCP,Urine NEGATIVE (NEGATIVE); THC,Urine NEGATIVE (NEGATIVE)
[2021-05-08 15:56] LABS: Appearance CLEAR (CLEAR); Bilirubin NEGATIVE (NEGATIVE); Blood NEGATIVE Ery/ul (0-5); Epithelial Cells RARE /HPF (FEW); Glucose NEGATIVE (NEGATIVE); Ketones NEGATIVE (NEGATIVE); Leukocyte Esterase NEGATIVE (NEGATIVE); Mucus SLIGHT /HPF (NEGATIVE); Nitrite NEGATIVE (NEGATIVE); Protein,Urine Dip NEGATIVE (Negative); Specific Gravity 1.024 (1.005-1.025); Urobilinogen NEGATIVE mg/dL (0-1)
== END 2021-05-08 16:20 | disposition home or self-care (01) ==
LOC: OB 14:30
PROVIDERS: ADMIT Obstetrics & Gynecology; ATTEND Obstetrics & Gynecology
DX: Z34.82 Encounter for supervision of other normal pregnancy, second trimester (principal); Z3A.22 22 weeks gestation of pregnancy
CPT/HCPCS: 80307; 81001; G0378

== ENCOUNTER 2021-06-20 13:21 | Emergency (ER) | payer OTHER ==
--- NOTE | 2021-06-20 13:24 | ERPHSYRPT ---
- History of Present Illness Time Seen by Provider: 06/20/21 13:24 Source: patient Exam Limitations: no limitations Physician History: This is a 25-year-old white female patient of Dr. Camacho OB, who is approximate 28 weeks and was diagnosed yesterday with positive COVID-19 infection. She has been having symptoms primarily of cough and shortness of breath over the last few days. She has some mild myalgias arthralgias. When she coughs she is having some right upper quadrant abdominal pain. She is not complaining of any chest pain. She is had no nausea vomiting or diarrhea symptoms. She is scheduled to have outpatient infusion tomorrow morning at the [facility] clinic. Because of her coughing episodes and sensation of shortness of breath, her last remodeler repairer told her to come to the emergency department for evaluation. Timing/Duration: day(s) (Few days) Severity: mild (To moderate) Associated Symptoms: shortness of breath (Mild but worsens to moderate with coughing spells), cough, other (Myalgias and arthralgias), No abdominal pain (Right upper quadrant with coughing only) Allergies/Adverse Reactions: Penicillins Allergy (Severe, Verified 05/08/21 14:49) Swelling Home Medications: Pnv No.95/Ferrous Fum/Folic AC [ Multivitamin Tablet] 1 tab PO DAILY 02/25/21 [History] Hx Tetanus, Diphtheria Vaccination/Date Given: Yes Hx Influenza Vaccination/Date Given: Yes Hx Pneumococcal Vaccination/Date Given: No Travel Risk - International Travel Have you traveled outside of the country in past 3 weeks: No - Coronavirus Screening Are you exhibiting any of the following symptoms?: Yes Symptoms: Fever, Cough: New Onset, Shortness of Breath, Headaches/Body Aches/Fatigue Close contact with a COVID-19 positive Pt in past 14-21 Days: Yes - Vaccine Status Have you recieved a Covid-19 vaccination: No - Review of Systems Constitutional: Fever, Weakness Eyes: No Symptoms Ears, Nose, & Throat: No Symptoms Respiratory: Cough, Dyspnea (Mild with out coughing and moderate with coughing) Cardiac: No Symptoms Abdominal/Gastrointestinal: Abdominal Pain (Right upper quadrant abdominal pain with coughing), No Nausea, No Vomiting, No Diarrhea Genitourinary Symptoms: Musculoskeletal: No Symptoms Skin: No Symptoms Neurological: No Symptoms Psychological: No Symptoms Endocrine: No Symptoms Hematologic/Lymphatic: No Symptoms Immunological/Allergic: No Symptoms All Other Systems: Reviewed and Negative - Past Medical History Pertinent Past Medical History: Yes Neurological History: No Pertinent History ENT History: No Pertinent History Cardiac History: No Pertinent History Respiratory History: No Pertinent History Endocrine Medical History: No Pertinent History Musculoskeletal History: Fractures, Other GI Medical History: Pancreatitis History: No Pertinent History Psycho-Social History: No Pertinent History Female Reproductive Disorders: No Pertinent History Other Medical History: lt arm fx, pancreatitis - Past Surgical History Past Surgical History: No Neuro Surgical History: No Pertinent History Cardiac: No Pertinent History Respiratory: No Pertinent History Gastrointestinal: No Pertinent History Genitourinary: No Pertinent History Musculoskeletal: No Pertinent History Female Surgical History: No Pertinent History - Social History Smoking Status: Never smoker Exposure to second hand smoke: No Alcohol Use: None Drug Use: none Patient Lives Alone: No Significant Family History: no pertinent family hx - Nursing Vital Signs Nursing Vital Signs: Initial Vital Signs Temperature 99.2 F 06/20/21 13:27 Pulse Rate 118 H 06/20/21 13:27 Respiratory Rate 22 06/20/21 13:27 Blood Pressure 125/72 06/20/21 13:27 O2 Sat by Pulse Oximetry 98 06/20/21 13:27 Pain Scale Pain Intensity [Abdomen] 10 Pain Intensity 4 - Physical Exam General Appearance: mild distress (When coughing), alert, anxiety, obese Eye Exam: PERRL/EOMI, eyes nml inspection Ears, Nose, Throat Exam: normal ENT inspection, moist mucous membranes Neck Exam: normal inspection, non-tender, supple, full range of motion Respiratory Exam: normal breath sounds, lungs clear, airway intact, No chest tenderness, No respiratory distress Cardiovascular Exam: tachycardia Gastrointestinal/Abdomen Exam: soft, normal bowel sounds, tenderness (Has no palpable tenderness but there is tenderness in the right upper quadrant when she is coughing) Pelvic Exam: not done Rectal Exam: not done Back Exam: normal inspection, normal range of motion, No CVA tenderness, No vertebral tenderness Extremity Exam: normal inspection, normal range of motion, pelvis stable Neurologic Exam: alert, oriented x 3, cooperative, facility maintenance supervisor II-XII nml as tested, normal mood/affect, nml cerebellar function, nml station & gait, sensation nml Skin Exam: normal color, warm, dry Lymphatic Exam: No adenopathy SpO2 Interpretation: normal O2 Delivery: Room Air - Course Nursing assessment & vital signs reviewed: Yes Ordered Tests: Active Orders 24 hr Category Date Time Status EKG-ER Only STAT Care 06/20/21 13:48 Active IV Insertion STAT Care 06/20/21 13:48 Active Isolation, Initiate & Maintain STAT Care 06/20/21 13:48 Active BLOOD CULTURE Stat Lab 06/20/21 14:16 Received CBC W DIFF Stat Lab 06/20/21 14:16 Completed CMP Stat Lab 06/20/21 14:16 Completed INFLUENZA A+B VONDA Stat Lab 06/20/21 13:48 Completed Lactic Acid Stat Lab 06/20/21 14:25 Completed Manual Differential NC Stat Lab 06/20/21 14:16 Completed [place] Screen Stat Lab 06/20/21 14:16 Completed UA W/RFX UR CULTURE Stat Lab 06/20/21 15:40 Received Medication Summary Generic Name Dose Route Start Last Admin Trade Name Freq PRN Reason Stop Dose Admin Sodium Chloride 1,000 mls @ 250 mls/hr 06/20/21 14:30 06/20/21 14:25 Sodium Chloride 0.9% 1000 Ml IV 07/20/21 14:29 250 mls/hr .Q4H NATALIE Administration Discontinued Medications Generic Name Dose Route Start Last Admin Trade Name Freq PRN Reason Stop Dose Admin Acetaminophen/Codeine Phosphate 10 ml 06/20/21 14:12 06/20/21 14:26 Codeine Phosphate/Apap 5 Ml 5 Ml Udcup PO 06/20/21 14:13 10 ml STAT ONE Administration Acetaminophen/Codeine Phosphate Confirm 06/20/21 14:24 Codeine Phosphate/Apap 5 Ml 5 Ml Udcup Administered 06/20/21 14:25 Dose 10 ml .ROUTE .STK-MED ONE Dexamethasone Sodium Phosphate 8 mg 06/20/21 14:11 06/20/21 14:26 Dexamethasone Sod Phosphate 10 Mg/Ml IV 06/20/21 14:12 8 mg STAT ONE Administration Dexamethasone Sodium Phosphate Confirm 06/20/21 14:23 Dexamethasone Sod Phosphate 10 Mg/Ml Administered 06/20/21 14:24 Dose 10 mg .ROUTE .STK-MED ONE Ondansetron HCl 4 mg 06/20/21 14:18 06/20/21 14:26 Ondansetron Hcl 4 Mg/2 Ml Vial IV 06/20/21 14:19 4 mg STAT ONE Administration Ondansetron HCl Confirm 06/20/21 14:23 Ondansetron Hcl 4 Mg/2 Ml Vial Administered 06/20/21 14:24 Dose 4 mg .ROUTE .STK-MED ONE Lab/Rad Data: Laboratory Result Diagrams 06/20/21 14:16 06/20/21 14:16 Laboratory Results 06/20/21 06/20/21 06/20/21 Range/Units 14:25 14:16 14:16 WBC (4.0-10.5) K/mm3 RBC (4.1-5.4) M/mm3 Hgb (12.0-16.0) gm/dl Hct (35-47) % MCV (78-100) fl MCH (26-32) pg MCHC (32-36) g/dl RDW (11.5-14.0) % Plt Count (150-450) K/mm3 MPV (7.5-11.0) fl Segmented Neutrophils (36.0-66.0) % Lymphocytes (Manual) (24-44) % Monocytes (Manual) (0.0-12.0) % Platelet Estimate (NORMAL) RBC Morphology Microcytosis Sodium 131 L (137-145) mmol/L Potassium 3.5 (3.5-5.1) mmol/L Chloride 100 (98-107) mmol/L Carbon Dioxide 23 (22-30) mmol/L Anion Gap 11.5 (5-15) MEQ/L BUN 7 (7-17) mg/dL Creatinine 0.46 L (0.52-1.04) mg/dL Estimated GFR > 60.0 ML/MIN Glucose 131 H (74-106) mg/dL Lactic Acid 1.4 (0.4-2.0) Calcium 8.4 (8.4-10.2) mg/dL Total Bilirubin 0.40 (0.2-1.3) mg/dL AST 43 H (14-36) U/L ALT 37 H (0-35) U/L Alkaline Phosphatase 144 H (38-126) U/L Serum Total Protein 6.5 (6.3-8.2) g/dL Albumin 3.6 (3.5-5.0) g/dL Monoscreen NEGATIVE (Negative) Influenza Type A Ag (NEGATIVE) Influenza Type B Ag (NEGATIVE) Group A Strep Antibody (NEGATIVE) 06/20/21 06/20/21 06/20/21 Range/Units 14:16 13:48 13:48 WBC 9.4 (4.0-10.5) K/mm3 RBC 4.08 L (4.1-5.4) M/mm3 Hgb 11.1 L (12.0-16.0) gm/dl Hct 34.3 L (35-47) % MCV 84.1 (78-100) fl MCH 27.2 (26-32) pg MCHC 32.4 (32-36) g/dl RDW 13.9 (11.5-14.0) % Plt Count 243 (150-450) K/mm3 MPV 9.1 (7.5-11.0) fl Segmented Neutrophils 93 H (36.0-66.0) % Lymphocytes (Manual) 6 L (24-44) % Monocytes (Manual) 1 (0.0-12.0) % Platelet Estimate NORMAL (NORMAL) RBC Morphology ABNORMAL Microcytosis 1+ Sodium (137-145) mmol/L Potassium (3.5-5.1) mmol/L Chloride (98-107) mmol/L Carbon Dioxide (22-30) mmol/L Anion Gap (5-15) MEQ/L BUN (7-17) mg/dL Creatinine (0.52-1.04) mg/dL Estimated GFR ML/MIN Glucose (74-106) mg/dL Lactic Acid (0.4-2.0) Calcium (8.4-10.2) mg/dL Total Bilirubin (0.2-1.3) mg/dL AST (14-36) U/L ALT (0-35) U/L Alkaline Phosphatase (38-126) U/L Serum Total Protein (6.3-8.2) g/dL Albumin (3.5-5.0) g/dL Monoscreen (Negative) Influenza Type A Ag NEGATIVE (NEGATIVE) Influenza Type B Ag NEGATIVE (NEGATIVE) Group A Strep Antibody NOT DETECTED (NEGATIVE) - Progress Progress: improved Progress Note: 06/20/21 14:10 I spoke with the patient's last remodeler repairer, Dr. Camacho. We discussed antiemetics and he states we can go ahead and use Zofran. We also discussed the use of Tylenol with codeine elixir to help as an antitussive as well as the use of mo roids in this patient. He stated that even though she is it is okay to use those medications now and for a couple days if needed. 06/20/21 16:23 Patient states that she is breathing much better and feeling much better. Counseled pt/family regarding: lab results, diagnosis, need for follow-up - Departure Departure Disposition: Home Clinical Impression: COVID-19 virus infection, Condition: Stable Critical Care Time: No Referrals: AUDREY COPPOLA [Primary Care Provider] - Follow up/PCP as directed Additional Instructions: Drink plenty of fluids. Take your medication as prescribed. Follow-up with your last remodeler repairer on Wednesday for further management. Return to the emergency department if your symptoms worsen Prescriptions: Codeine Phosphate/APAP [Tylenol W/ Codeine 118 ml] 10 ml PO Q8H PRN PRN #120 ml MDD 30 ml PRN Reason: Cough Prednisone 5 mg [Deltasone 5 mg] 5 mg PO TID #12 tablet
[2021-06-20] MEDS ORDERED: DECADRON 10MG INJ. IV ONE (14:11)
[2021-06-20] MEDS ORDERED: TYLENOL W/ CODEINE 5 ML UD CUP PO ONE (14:12)
[2021-06-20] MEDS ORDERED: Zofran 4 MG/2 ML VIAL IV ONE (14:18)
[2021-06-20] MEDS ORDERED: Sodium Chloride 0.9% 1000 ML 1,000 ML ONE (14:23)
[2021-06-20] MEDS ORDERED: DECADRON 10MG INJ. ONE (14:23)
[2021-06-20] MEDS ORDERED: Zofran 4 MG/2 ML VIAL ONE (14:23)
[2021-06-20] MEDS ORDERED: TYLENOL W/ CODEINE 5 ML UD CUP ONE (14:24)
[2021-06-20 14:28] LABS: Hematocrit 34.3 % (35-47); Hemoglobin 11.1 gm/dl (12.0-16.0); Mean Cell Volume 84.1 fl (78-100); Mean Corpuscular Hemoglobin 27.2 pg (26-32); Mean Corpuscular Hgb Concent. 32.4 g/dl (32-36); Mean Platelet Volume 9.1 fl (7.5-11.0); Platelet Count 243 K/mm3 (150-450); Red Blood Count 4.08 M/mm3 (4.1-5.4); Red Cell Distribution Width 13.9 % (11.5-14.0); White Blood Count 9.4 K/mm3 (4.0-10.5)
[2021-06-20] MEDS ORDERED: Sodium Chloride 0.9% 1000 ML 1,000 ML IV SCH (14:30)
[2021-06-20 14:36] LABS: ALBUMIN 3.6 g/dL (3.5-5.0); ALKALINE PHOSPHATASE 144 U/L (38-126); BLOOD UREA NITROGEN 7 mg/dL (7-17); Calcium 8.4 mg/dL (8.4-10.2); Carbon Dioxide 23 mmol/L (22-30); Creatinine 1 0.46 mg/dL (0.52-1.04); EST GLOMERULAR FILTRATION RATE > 60.0 ML/MIN; Glucose 131 mg/dL (74-106); Potassium 3.5 mmol/L (3.5-5.1); SGOT/AST 43 U/L (14-36); SGPT/ALT 37 U/L (0-35); SODIUM 131 mmol/L (137-145); Total Protein 6.5 g/dL (6.3-8.2)
[2021-06-20 14:44] LABS: INFLUENZA A NEGATIVE (NEGATIVE); INFLUENZA B NEGATIVE (NEGATIVE)
[2021-06-20 15:02] LABS: CHLORIDE 100 mmol/L (98-107)
[2021-06-20 15:03] LABS: ANION GAP 11.5 MEQ/L (5-15)
[2021-06-20 15:21] LABS: Lymphocytes 6 % (24-44); Microcytosis 1+; Monocyte 1 % (0.0-12.0); Neutrophils 93 % (36.0-66.0); Platelet Estimate NORMAL (NORMAL); Total Cells Counted 100
[2021-06-20 16:03] VITALS: BP 104/57; PULSE 106; O2SAT 94
[2021-06-20 16:29] LABS: Appearance SLIGHTLY CLOUDY (CLEAR); Bacteria RARE /HPF (NEGATIVE); Bilirubin NEGATIVE (NEGATIVE); Blood NEGATIVE Ery/ul (0-5); Epithelial Cells FEW /HPF (FEW); Glucose NEGATIVE (NEGATIVE); Ketones MODERATE (NEGATIVE); Leukocyte Esterase NEGATIVE (NEGATIVE); Mucus SLIGHT /HPF (NEGATIVE); Nitrite NEGATIVE (NEGATIVE); Protein,Urine Dip 30 (Negative); RBC 0-2 /HPF (0-2); Specific Gravity 1.025 (1.005-1.025); Urobilinogen NEGATIVE mg/dL (0-1)
== END 2021-06-20 16:58 | disposition home or self-care (01) ==
LOC: ED 13:21
DX: O98.513 Other viral diseases complicating pregnancy, third trimester (principal); R05.9 Cough, unspecified; R06.02 Shortness of breath; Z79.891 Long term (current) use of opiate analgesic; Z79.52 Long term (current) use of systemic steroids
CPT/HCPCS: 36000; 36415; 80053; 81001; 83605; 85025; 86308; 87040; 87400; 87651; 93005; 96374; 96375; 99284; J1100; J2405; A9270-GY

== ENCOUNTER 2021-06-20 17:15 | Observation (INO) | payer OTHER ==
[2021-06-20] MEDS ORDERED: solu-CORTEF 100MG IV PRN (18:00)
[2021-06-20] MEDS ORDERED: BENADRYL 50 MG/ML IV PRN (18:00)
[2021-06-20] MEDS ORDERED: Sodium Chloride 0.9% 1000 ML 1,000 ML IV PRN (18:00)
[2021-06-20] MEDS ORDERED: Epipen 0.3 MG SQ PRN (18:00)
[2021-06-20] MEDS ORDERED: TYLENOL 325 MG PO PRN (18:00)
[2021-06-20] MEDS ORDERED: Pepcid 20 MG VIAL IV PRN (18:00)
[2021-06-20] MEDS ORDERED: VENTOLIN COMMON CANISTER IH PRN (18:00)
[2021-06-20] MEDS ORDERED: REGEN-COV 600-600 MG/10ML(EUA) 10 ML in Sodium Chloride 0.9% 100 ML BAG 100 ML IV ONE (18:00)
[2021-06-20 19:10] VITALS: O2SAT 95
[2021-06-20 20:04] VITALS: BP 118/58; PULSE 99
== END 2021-06-20 19:15 | disposition home or self-care (01) ==
LOC: MED SURG 17:15 → UNDOADMOB 17:15 → UNDODISOB 19:15
PROVIDERS: ADMIT Obstetrics & Gynecology; ATTEND Obstetrics & Gynecology
DX: O98.513 Other viral diseases complicating pregnancy, third trimester (principal); U07.1 COVID-19; Z3A.29 29 weeks gestation of pregnancy
CPT/HCPCS: 59025; G0378

== ENCOUNTER 2021-06-21 01:09 | Emergency (ER) | payer OTHER ==
--- NOTE | 2021-06-21 01:39 | ERPHSYRPT ---
- History of Present Illness Time Seen by Provider: 06/21/21 01:38 Source: patient Exam Limitations: no limitations Physician History: This is a 25-year-old white female who is approximately 28 weeks and is a patient of welfare supervisor Dr. Camacho who returns to the emergency department with fever and aches and pains. Patient was evaluated in this emergency department less than 12 hours ago for fever, myalgias and arthralgias. She was diagnosed on 06/19/2021 with Covid 19 infection. Patient was discharged from this emergency department feeling well. She left the emergency department feeling well then proceeded to the outpatient infusion clinic for initial dose of bamlanivimab. In the last several hours patient states that she has had rising fevers and worsening body aches and pains. Patient was only taking Tylenol with codeine elixir every 8 hours to help control her aches and pains and fever. She was not receiving adequate control of her fever with the small amount of Tylenol that is present within that elixir. Timing/Duration: day(s) (2), worse Fever Severity: moderate Fever Therapy TRAVEL REGISTERED NURSE ONCOLOGY: Acetaminophen Associated Symptoms: headache, muscle aches, nausea/vomiting Allergies/Adverse Reactions: Penicillins Allergy (Severe, Verified 06/21/21 01:31) Anaphylactic Reaction Home Medications: Pnv No.95/Ferrous Fum/Folic AC [ Multivitamin Tablet] 1 tab PO DAILY 02/25/21 [History] Hx Tetanus, Diphtheria Vaccination/Date Given: Yes Hx Influenza Vaccination/Date Given: Yes Hx Pneumococcal Vaccination/Date Given: No Travel Risk - International Travel Have you traveled outside of the country in past 3 weeks: No - Coronavirus Screening Are you exhibiting any of the following symptoms?: Yes Symptoms: Fever, Vomiting/Diarrhea, Headaches/Body Aches/Fatigue Close contact with a COVID-19 positive Pt in past 14-21 Days: Yes - Vaccine Status Have you recieved a Covid-19 vaccination: No - Review of Systems Constitutional: Fever Eyes: No Symptoms Ears, Nose, & Throat: No Symptoms Respiratory: No Symptoms Cardiac: No Symptoms Abdominal/Gastrointestinal: Vomiting Genitourinary Symptoms: No Symptoms Musculoskeletal: Arthralgias, Myalgias Skin: No Symptoms Neurological: No Symptoms Psychological: No Symptoms Endocrine: No Symptoms Hematologic/Lymphatic: No Symptoms Immunological/Allergic: No Symptoms All Other Systems: Reviewed and Negative - Past Medical History Pertinent Past Medical History: Yes Neurological History: No Pertinent History ENT History: No Pertinent History Cardiac History: No Pertinent History Respiratory History: No Pertinent History Endocrine Medical History: No Pertinent History Musculoskeletal History: Fractures, Other GI Medical History: Pancreatitis History: No Pertinent History Psycho-Social History: No Pertinent History Female Reproductive Disorders: No Pertinent History Other Medical History: lt arm fx, pancreatitis - Past Surgical History Past Surgical History: No Neuro Surgical History: No Pertinent History Cardiac: No Pertinent History Respiratory: No Pertinent History Gastrointestinal: No Pertinent History Genitourinary: No Pertinent History Musculoskeletal: No Pertinent History Female Surgical History: No Pertinent History - Social History Smoking Status: Never smoker Exposure to second hand smoke: No Alcohol Use: None Drug Use: none Patient Lives Alone: No Significant Family History: no pertinent family hx - Nursing Vital Signs Nursing Vital Signs: Initial Vital Signs Temperature 99.7 F 06/21/21 01:09 Pulse Rate 113 H 06/21/21 01:09 Respiratory Rate 30 H 06/21/21 01:09 Blood Pressure 119/67 06/21/21 01:09 O2 Sat by Pulse Oximetry 97 06/21/21 01:09 Pain Scale Pain Intensity 7 - Course Nursing assessment & vital signs reviewed: Yes EKG Interpreted by Me: RATE (123), NORMAL AXIS, NORMAL INTERVALS, NORMAL QRS, Non-specific ST Changes, Other (There are no acute ischemic changes on today's EKG. There are no comparison EKGs available.) Ordered Tests: Active Orders 24 hr Category Date Time Status IV Insertion STAT Care 06/21/21 02:26 Active CHEST 1 VIEW (PORTABLE) Stat Exams 06/21/21 03:11 Taken CBC W DIFF Stat Lab 06/21/21 02:40 Completed CMP Stat Lab 06/21/21 02:40 Completed Manual Differential NC Stat Lab 06/21/21 02:40 Completed Medication Summary Discontinued Medications Generic Name Dose Route Start Last Admin Trade Name Freq PRN Reason Stop Dose Admin Acetaminophen 650 mg 06/21/21 02:26 06/21/21 02:52 Acetaminophen 325 Mg Tablet PO 06/21/21 02:27 650 mg STAT STA Administration Acetaminophen Confirm 06/21/21 02:51 Acetaminophen 325 Mg Tablet Administered 06/21/21 02:52 Dose 650 mg .ROUTE .STK-MED ONE Sodium Chloride 1,000 mls @ 999 mls/hr 06/21/21 02:26 12/18/21 02:54 Sodium Chloride 0.9% 1000 Ml IV 06/21/21 03:26 999 mls/hr .Q1H1M STA Administration Sodium Chloride Confirm 06/21/21 02:51 Sodium Chloride 0.9% 1000 Ml Administered 06/21/21 02:52 Dose 1,000 mls @ ud .ROUTE .STK-MED ONE Potassium Chloride 10 meq 06/21/21 03:17 06/21/21 03:29 Potassium Chloride 10 Meq Tablet PO 06/21/21 03:18 10 meq STAT ONE Administration Potassium Chloride Confirm 06/21/21 03:28 Potassium Chloride 10 Meq Tablet Administered 06/21/21 03:29 Dose 10 meq PO .STK-MED ONE Lab/Rad Data: Laboratory Result Diagrams 06/21/21 02:40 06/21/21 02:40 Laboratory Results 06/21/21 06/21/21 Range/Units 02:40 02:40 WBC 11.4 H (4.0-10.5) K/mm3 RBC 4.00 L (4.1-5.4) M/mm3 Hgb 10.7 L (12.0-16.0) gm/dl Hct 33.4 L (35-47) % MCV 83.5 (78-100) fl MCH 26.8 (26-32) pg MCHC 32.0 (32-36) g/dl RDW 13.8 (11.5-14.0) % Plt Count 251 (150-450) K/mm3 MPV 9.4 (7.5-11.0) fl Sodium 129 L (137-145) mmol/L Potassium 3.1 L (3.5-5.1) mmol/L Chloride 97 L (98-107) mmol/L Carbon Dioxide 21 L (22-30) mmol/L Anion Gap 13.7 (5-15) MEQ/L BUN 7 (7-17) mg/dL Creatinine 0.50 L (0.52-1.04) mg/dL Estimated GFR > 60.0 ML/MIN Glucose 115 H (74-106) mg/dL Calcium 8.1 L (8.4-10.2) mg/dL Total Bilirubin 0.60 (0.2-1.3) mg/dL AST 54 H (14-36) U/L ALT 45 H (0-35) U/L Alkaline Phosphatase 161 H (38-126) U/L Serum Total Protein 6.8 (6.3-8.2) g/dL Albumin 3.7 (3.5-5.0) g/dL - Progress Progress: improved, pain not gone completely, re-examined Progress Note: 06/21/21 03:05 Medical decision making: This patient returns to the emergency department less than 12 hours after she was first admitted to the emergency department yesterday. She did receive infusion of bam at the infusion clinic. Within a few hours she was having worsening muscle aches and pains shortness of breath and vomiting episodes. She also has a fever that is higher and staying higher since her infusion. I spoke with [facility] Dr. Starr (hospitalist) I reviewed the patient history, clinical findings and laboratory results. He stated that typically they transfer patients with positive COVID-19 infection to their facility if there is radiographic evidence of COVID-19 pneumonia and the requirement of oxygen support. They typically discharged patients from their facility if they are tolerating oral intake and not requiring any pulmonary support. However, this patient has returned for second visit and feeling worse. She is maintaining her oxygen saturations 97% on room air she is tachycardic at 120s and respiratory rate is running between 26 and 36 respirations per minute. He states that he does accept the patient for transfer. We will obtain a chest x-ray. 06/21/21 04:02 Medical decision making: This patient had a chest x-ray performed. It shows bilateral lower lobe inflammatory opacities. I did recontact Dr. Starr. We will transfer the patient to [facility]. They provide transportation so there ambulance service will pick her up here at our facility and transfer her back to [place]. Given the findings of the lab results reported to Dr. Starr and the chest x-ray that was reviewed with him, he wants the patient received Rocephin 2 g intravenously as well as 500 mg intravenous azithromycin. After the patient's normal saline fluid bolus, Dr. Starr wants the patient to receive normal saline with 20 mEq of potassium at 125 mL/h. I discussed this with the patient she is agreeable. She is aware that she might not be at the facility long depending on her clinical condition and response to the therapy she is receiving there. She is agreeable to be transferred. Counseled pt/family regarding: lab results, diagnosis, need for follow-up, rad results - Departure Departure Disposition: Transfer Clinical Impression: COVID-19 virus infection, Bilateral pulmonary infiltrates on chest x-ray, Condition: Fair Critical Care Time: No Referrals: AUDREY COPPOLA [Primary Care Provider] - Follow up/PCP as directed
[2021-06-21] MEDS ORDERED: Sodium Chloride 0.9% 1000 ML 1,000 ML IV STA (02:26)
[2021-06-21] MEDS ORDERED: TYLENOL 325 MG PO STA (02:26)
[2021-06-21 02:43] LABS: Hematocrit 33.4 % (35-47); Hemoglobin 10.7 gm/dl (12.0-16.0); Mean Cell Volume 83.5 fl (78-100); Mean Corpuscular Hemoglobin 26.8 pg (26-32); Mean Platelet Volume 9.4 fl (7.5-11.0); Platelet Count 251 K/mm3 (150-450); Red Cell Distribution Width 13.8 % (11.5-14.0); White Blood Count 11.4 K/mm3 (4.0-10.5)
[2021-06-21] MEDS ORDERED: TYLENOL 325 MG ONE (02:51)
[2021-06-21] MEDS ORDERED: Sodium Chloride 0.9% 1000 ML 1,000 ML ONE (02:51)
[2021-06-21 02:54] LABS: ALBUMIN 3.7 g/dL (3.5-5.0); ALKALINE PHOSPHATASE 161 U/L (38-126); ANION GAP 13.7 MEQ/L (5-15); BLOOD UREA NITROGEN 7 mg/dL (7-17); CHLORIDE 97 mmol/L (98-107); Calcium 8.1 mg/dL (8.4-10.2); Carbon Dioxide 21 mmol/L (22-30); EST GLOMERULAR FILTRATION RATE > 60.0 ML/MIN; Glucose 115 mg/dL (74-106); Potassium 3.1 mmol/L (3.5-5.1); SGOT/AST 54 U/L (14-36); SGPT/ALT 45 U/L (0-35); SODIUM 129 mmol/L (137-145); Total Protein 6.8 g/dL (6.3-8.2)
[2021-06-21] MEDS ORDERED: Klor Con 10 MEQ PO ONE ×2 (03:17→03:28)
[2021-06-21] MEDS ORDERED: ROCEPHIN 2 Gm-D5w 50ML BAG** 2 G/50 ML IVPB IV STA (03:58)
[2021-06-21] MEDS ORDERED: Zithromax 500 MG/ 250 ML NaCl Premix 500 MG/250 ML IVPB IV STA (03:58)
[2021-06-21] MEDS ORDERED: Sodium Chloride 0.9% W/ 20 mEq KCl/LITER 1,000 ML IV SCH (04:15)
[2021-06-21] MEDS ORDERED: ROCEPHIN 2 Gm-D5w 50ML BAG** 2 G/50 ML IVPB IV ONE (04:18)
[2021-06-21] MEDS ORDERED: Zithromax 500 MG/ 250 ML NaCl Premix 500 MG/250 ML IVPB IV ONE (04:18)
[2021-06-21] MEDS ORDERED: Sodium Chloride 0.9% W/ 20 mEq KCl/LITER 1,000 ML IV ONE (04:19)
[2021-06-21 05:33] LABS: Lymphocytes 7 % (24-44); Monocyte 4 % (0.0-12.0); Neutrophils 89 % (36.0-66.0); Platelet Estimate NORMAL (NORMAL); Total Cells Counted 100
[2021-06-21 06:55] VITALS: BP 135/64; PULSE 108; O2SAT 98
--- NOTE | 2021-06-21 08:17 | XRAY ---
Indication: Cough and congestion. Covid 19 infection. Comparison: None Portable chest demonstrates mild diffuse bilateral airspace disease greatest in right middle lobe. No large effusion. Remaining heart and bony thorax unremarkable.
== END 2021-06-21 06:40 ==
LOC: ED 01:09
DX: O98.513 Other viral diseases complicating pregnancy, third trimester (principal); U07.1 COVID-19; Z3A.28 28 weeks gestation of pregnancy; R91.8 Other nonspecific abnormal finding of lung field; R50.9 Fever, unspecified; M79.10 Myalgia, unspecified site; R51.9 Headache, unspecified; R11.2 Nausea with vomiting, unspecified
CPT/HCPCS: 36000; 36415; 71045; 80053; 85025; 99284; J0456; J0696; A9270-GY

== ENCOUNTER 2021-08-03 20:55 | Observation (INO) | payer OTHER ==
[2021-08-03 21:33] VITALS: O2SAT 99
[2021-08-03 21:44] LABS: Appearance CLEAR (CLEAR); Bilirubin NEGATIVE (NEGATIVE); Blood NEGATIVE Ery/ul (0-5); Epithelial Cells RARE /HPF (FEW); Glucose 150 mg/dL (NEGATIVE); Ketones TRACE (NEGATIVE); Leukocyte Esterase NEGATIVE (NEGATIVE); Mucus SLIGHT /HPF (NEGATIVE); Nitrite NEGATIVE (NEGATIVE); Protein,Urine Dip 30 (Negative); Specific Gravity 1.029 (1.005-1.025); Urobilinogen NEGATIVE mg/dL (0-1)
[2021-08-03 21:59] LABS: Amphetamine,Urine NEGATIVE (NEGATIVE); Barbiturate,Urine NEGATIVE (NEGATIVE); Benzodiazepine,Urine NEGATIVE (NEGATIVE); Cocaine,Urine NEGATIVE (NEGATIVE); Methadone,Urine NEGATIVE (NEGATIVE); Opiate,Urine NEGATIVE (NEGATIVE); PCP,Urine NEGATIVE (NEGATIVE); THC,Urine NEGATIVE (NEGATIVE)
[2021-08-04 22:28] VITALS: BP 118/58
[2021-08-04 22:30] VITALS: PULSE 95
== END 2021-08-03 23:05 | disposition home or self-care (01) ==
LOC: MED SURG 20:55
PROVIDERS: ADMIT Obstetrics & Gynecology; ATTEND Obstetrics & Gynecology
DX: Z34.83 Encounter for supervision of other normal pregnancy, third trimester (principal); Z3A.35 35 weeks gestation of pregnancy
CPT/HCPCS: 80307; 81001; 84112; 87086; G0378

== ENCOUNTER 2021-08-13 20:36 | Observation (INO) | payer OTHER ==
[2021-08-13 21:26] LABS: Appearance CLEAR (CLEAR); Bilirubin NEGATIVE (NEGATIVE); Blood NEGATIVE Ery/ul (0-5); Epithelial Cells RARE /HPF (FEW); Glucose NEGATIVE (NEGATIVE); Ketones TRACE (NEGATIVE); Leukocyte Esterase NEGATIVE (NEGATIVE); Mucus SLIGHT /HPF (NEGATIVE); Nitrite NEGATIVE (NEGATIVE); Protein,Urine Dip 30 (Negative); Urobilinogen NEGATIVE mg/dL (0-1)
[2021-08-13 21:34] LABS: COVID AG -BINAX NOW RAPID TEST NEGATIVE (NEGATIVE)
[2021-08-13 21:39] LABS: Amphetamine,Urine NEGATIVE (NEGATIVE); Barbiturate,Urine NEGATIVE (NEGATIVE); Benzodiazepine,Urine NEGATIVE (NEGATIVE); Cocaine,Urine NEGATIVE (NEGATIVE); Methadone,Urine NEGATIVE (NEGATIVE); Opiate,Urine NEGATIVE (NEGATIVE); PCP,Urine NEGATIVE (NEGATIVE); THC,Urine NEGATIVE (NEGATIVE)
[2021-08-13 23:11] VITALS: BP 143/74; PULSE 71; O2SAT 100
== END 2021-08-13 22:45 | disposition home or self-care (01) ==
LOC: UNDOADMOB 20:36 → MED SURG 20:36 → UNDODISOB 22:45
PROVIDERS: ADMIT Obstetrics & Gynecology; ATTEND Obstetrics & Gynecology
DX: Z34.83 Encounter for supervision of other normal pregnancy, third trimester (principal); Z3A.36 36 weeks gestation of pregnancy
CPT/HCPCS: 80307; 81001; 99000; G0378

== ENCOUNTER 2021-08-18 03:53 | Observation (INO) | payer OTHER ==
[2021-08-18 04:28] VITALS: BP 129/84; PULSE 58; O2SAT 100
[2021-08-18 07:18] LABS: Appearance SLIGHTLY CLOUDY (CLEAR); Bacteria RARE /HPF (NEGATIVE); Bilirubin NEGATIVE (NEGATIVE); Blood MODERATE Ery/ul (0-5); Epithelial Cells RARE /HPF (FEW); Glucose NEGATIVE (NEGATIVE); Ketones NEGATIVE (NEGATIVE); Leukocyte Esterase SMALL (NEGATIVE); Mucus SLIGHT /HPF (NEGATIVE); Nitrite NEGATIVE (NEGATIVE); Protein,Urine Dip NEGATIVE (Negative); Urobilinogen NEGATIVE mg/dL (0-1)
[2021-08-18 07:51] LABS: Amphetamine,Urine NEGATIVE (NEGATIVE); Barbiturate,Urine NEGATIVE (NEGATIVE); Benzodiazepine,Urine NEGATIVE (NEGATIVE); Cocaine,Urine NEGATIVE (NEGATIVE); Methadone,Urine NEGATIVE (NEGATIVE); Opiate,Urine NEGATIVE (NEGATIVE); PCP,Urine NEGATIVE (NEGATIVE); THC,Urine NEGATIVE (NEGATIVE)
== END 2021-08-18 08:15 | disposition home or self-care (01) ==
LOC: OB 03:53
PROVIDERS: ADMIT Obstetrics & Gynecology; ATTEND Obstetrics & Gynecology
DX: Z34.83 Encounter for supervision of other normal pregnancy, third trimester (principal); Z3A.37 37 weeks gestation of pregnancy
CPT/HCPCS: 80307; 81001; 82947; 84112; 87086; G0378

== ENCOUNTER 2021-08-20 09:02 | Observation (INO) | payer OTHER ==
[2021-08-20 10:12] VITALS: BP 130/74; PULSE 82
== END 2021-08-20 10:10 | disposition home or self-care (01) ==
LOC: MED SURG 09:02
PROVIDERS: ADMIT Obstetrics & Gynecology; ATTEND Obstetrics & Gynecology
DX: O98.513 Other viral diseases complicating pregnancy, third trimester (principal); Z3A.37 37 weeks gestation of pregnancy
CPT/HCPCS: 59025; G0378

== ENCOUNTER 2021-08-22 09:54 | Inpatient (IN) | payer OTHER ==
[2021-08-22] MEDS ORDERED: Ephedrine Sulfate 50 MG/ML IV PRN (10:14)
[2021-08-22] MEDS ORDERED: Lactated Ringers 1,000 ML IV ONE (10:14)
[2021-08-22] MEDS ORDERED: FENTANYL 2 MCG-BUPIV 0.125%-NS 250 ML Epidur 250 ML EPIDURAL SCH (10:15)
[2021-08-22] MEDS ORDERED: XYLOCAINE 1% HCL 20 ML MDV IJ PRN (10:15)
[2021-08-22] MEDS ORDERED: Zofran 4 MG/2 ML VIAL IV PRN (10:15)
[2021-08-22] MEDS ORDERED: PITOCIN 30 UNITS/ LR 500 ML 30 UNITS/500 ML PLAST..BAG IV SCH (10:30)
[2021-08-22 11:00] LABS: ALBUMIN 3.6 g/dL (3.5-5.0); ALKALINE PHOSPHATASE 164 U/L (38-126); ANION GAP 14.7 MEQ/L (5-15); BLOOD UREA NITROGEN 12 mg/dL (7-17); CHLORIDE 105 mmol/L (98-107); Calcium 8.5 mg/dL (8.4-10.2); Carbon Dioxide 20 mmol/L (22-30); Creatinine 1 0.47 mg/dL (0.52-1.04); EST GLOMERULAR FILTRATION RATE > 60.0 ML/MIN; Glucose 79 mg/dL (74-106); Potassium 3.8 mmol/L (3.5-5.1); SGOT/AST 22 U/L (14-36); SGPT/ALT 15 U/L (0-35); SODIUM 136 mmol/L (137-145); Total Protein 6.6 g/dL (6.3-8.2)
[2021-08-22 11:01] LABS: Mucus SLIGHT /HPF (NEGATIVE)
[2021-08-22 11:03] LABS: Hematocrit 30.9 % (35-47); Mean Cell Volume 79.4 fl (78-100); Mean Corpuscular Hemoglobin 25.7 pg (26-32); Mean Corpuscular Hgb Concent. 32.4 g/dl (32-36); Mean Platelet Volume 10.9 fl (7.5-11.0); Platelet Count 258 K/mm3 (150-450); Red Blood Count 3.89 M/mm3 (4.1-5.4); Red Cell Distribution Width 14.3 % (11.5-14.0); White Blood Count 12.6 K/mm3 (4.0-10.5)
[2021-08-22 11:08] LABS: RBC >101 /HPF (0-2)
[2021-08-22] MEDS: Lactated Ringers 1,000 ML IV SCH ×2 (11:13→19:48)
[2021-08-22 11:22] LABS: Appearance CLOUDY (CLEAR); Bilirubin NEGATIVE (NEGATIVE); Blood LARGE Ery/ul (0-5); Epithelial Cells FEW /HPF (FEW); Glucose NEGATIVE (NEGATIVE); Ketones NEGATIVE (NEGATIVE); Leukocyte Esterase MODERATE (NEGATIVE); Nitrite NEGATIVE (NEGATIVE); Protein,Urine Dip 100 (Negative); Urobilinogen NEGATIVE mg/dL (0-1)
[2021-08-22 11:30] LABS: ABO TYPING O; Antibody Screen NEGATIVE (NEGATIVE); RH TYPING POSITIVE
[2021-08-22 11:47] LABS: Amphetamine,Urine NEGATIVE (NEGATIVE); Barbiturate,Urine NEGATIVE (NEGATIVE); Benzodiazepine,Urine NEGATIVE (NEGATIVE); Cocaine,Urine NEGATIVE (NEGATIVE); Methadone,Urine NEGATIVE (NEGATIVE); Opiate,Urine NEGATIVE (NEGATIVE); PCP,Urine NEGATIVE (NEGATIVE); THC,Urine NEGATIVE (NEGATIVE)
[2021-08-22 14:10] LABS: BAND 3 % (0.0-2.0); Hypochromia 1+; Lymphocytes 20 % (24-44); Microcytosis 1+; Monocyte 2 % (0.0-12.0); Neutrophils 75 % (36.0-66.0); Platelet Estimate NORMAL (NORMAL); Polychromasia 1+; Total Cells Counted 100
[2021-08-22] MEDS ORDERED: Dermoplast Spray TP PRN (23:42)
[2021-08-22] MEDS ORDERED: Mylicon 80MG PO PRN (23:42)
[2021-08-22] MEDS ORDERED: TUCKS TP PRN (23:42)
[2021-08-22] MEDS: MOTRIN 400 MG PO PRN (23:47)
[2021-08-23] MEDS: MOTRIN 400 MG PO PRN ×3 (05:42→20:01)
[2021-08-23 05:57] LABS: Hematocrit 28.6 % (35-47); Mean Cell Volume 80.6 fl (78-100); Mean Corpuscular Hemoglobin 25.4 pg (26-32); Mean Corpuscular Hgb Concent. 31.5 g/dl (32-36); Mean Platelet Volume 10.8 fl (7.5-11.0); Platelet Count 215 K/mm3 (150-450); Red Blood Count 3.55 M/mm3 (4.1-5.4); Red Cell Distribution Width 14.5 % (11.5-14.0); White Blood Count 14.9 K/mm3 (4.0-10.5)
[2021-08-23 06:48] LABS: Eosinophil 2 % (0.00-3.0); Lymphocytes 16 % (24-44); Monocyte 3 % (0.0-12.0); Neutrophils 79 % (36.0-66.0); Platelet Estimate NORMAL (NORMAL); Total Cells Counted 100
[2021-08-23] MEDS: TYLENOL EXTRA STRENGTH 500 MG PO PRN ×3 (08:20→22:43)
[2021-08-23 08:30] LABS: HBsAg Screen Negative (Negative)
[2021-08-23] MEDS ORDERED: Adacel Vial IM ONE (09:00)
[2021-08-23] MEDS: FERREX 150 PO SCH (10:02)
[2021-08-23] MEDS: Colace 100 MG PO SCH ×2 (10:02→21:15)
--- NOTE | 2021-08-23 10:14 | PCM.NOTE ---
Date and Time: 08/23/21 1013 Subjective Assessment: ppd 1 sp pt resting in bed and doing well. ambulating and tolerating diet vss afebrile abd; soft uterus; firm lochia; mild hgb; 9 a/p sp ppd 1 secondary to preeclampsia doing well anticipate dc home tomorrow should fu in office in 3 wks OBJECTIVE DATA Vital Signs: Vital Signs - 24 hr Temp Pulse Resp BP BP Pulse Ox 08/23/21 08:00 97.8 F 82 18 137/83 99 08/23/21 05:00 69 18 148/71 08/23/21 04:20 98.4 F 67 20 175/79 100 08/22/21 23:30 84 18 141/80 08/22/21 22:30 98.3 F 08/22/21 22:15 76 20 158/71 08/22/21 21:45 69 20 154/70 08/22/21 21:30 101 H 20 150/70 08/22/21 21:00 87 20 139/66 08/22/21 20:45 97 H 20 139/92 139/92 08/22/21 20:30 88 20 100 08/22/21 20:15 96 H 22 99 08/22/21 20:00 85 22 163/83 08/22/21 19:45 76 22 145/72 08/22/21 19:30 75 22 140/73 08/22/21 19:15 76 20 144/79 08/22/21 19:00 98.4 F 75 20 157/72 08/22/21 18:45 98.4 F 81 20 136/98 08/22/21 18:30 98.4 F 82 20 147/72 08/22/21 18:15 98.4 F 76 20 146/70 08/22/21 18:00 98.4 F 67 20 141/66 08/22/21 17:45 98.4 F 69 20 143/78 08/22/21 17:30 98.4 F 80 20 151/62 08/22/21 17:15 98.4 F 82 20 145/65 08/22/21 17:00 98.4 F 66 20 154/68 154/68 08/22/21 16:45 76 18 134/63 08/22/21 16:30 79 18 143/65 08/22/21 16:15 74 18 144/65 08/22/21 16:00 77 18 139/74 08/22/21 15:45 80 18 176/96 08/22/21 15:30 80 18 176/96 08/22/21 15:15 62 18 174/75 08/22/21 15:00 75 18 131/75 08/22/21 14:45 75 18 155/66 08/22/21 14:30 69 18 139/67 08/22/21 14:15 66 18 135/76 08/22/21 14:00 66 18 135/76 08/22/21 13:54 69 18 129/67 08/22/21 13:45 98.1 F 69 20 129/67 08/22/21 13:30 98.1 F 86 20 145/67 08/22/21 13:15 98.1 F 81 20 131/71 08/22/21 13:00 98.1 F 83 20 147/80 08/22/21 12:45 98.1 F 73 20 148/71 08/22/21 12:30 98.1 F 20 08/22/21 12:15 98.1 F 83 20 121/57 08/22/21 12:00 98.1 F 83 20 130/60 08/22/21 11:45 98.1 F 90 20 126/70 08/22/21 11:30 98.1 F 90 20 126/70 08/22/21 11:15 98.1 F 90 20 126/70 08/22/21 11:04 98.1 F 90 20 126/70 Pain Assessment - Last Documented Pain Intensity [Right] 6 Pain Intensity 4 Pain Scale Used 0-10 Pain Scale Intake and Output: Intake & Output 08/20/21 08/21/21 08/22/21 08/23/21 11:59 11:59 11:59 11:59 Intake Total 0 Output Total 530 Balance -530 Weight 116.12 kg Lab Results: Lab Results-Last 24 Hours 08/22/21 08/22/21 08/22/21 Range/Units 10:28 10:28 10:34 WBC 12.6 H (4.0-10.5) K/mm3 RBC 3.89 L (4.1-5.4) M/mm3 Hgb 10.0 L (12.0-16.0) gm/dl Hct 30.9 L (35-47) % MCV 79.4 (78-100) fl MCH 25.7 L (26-32) pg MCHC 32.4 (32-36) g/dl RDW 14.3 H (11.5-14.0) % Plt Count 258 (150-450) K/mm3 MPV 10.9 (7.5-11.0) fl Segmented Neutrophils 75 H (36.0-66.0) % Band Neutrophils 3 H (0.0-2.0) % Lymphocytes (Manual) 20 L (24-44) % Monocytes (Manual) 2 (0.0-12.0) % Eosinophils (Manual) (0.00-3.0) % Hypochromia 1+ Platelet Estimate NORMAL (NORMAL) RBC Morphology ABNORMAL Polychromasia 1+ Microcytosis 1+ Sodium (137-145) mmol/L Potassium (3.5-5.1) mmol/L Chloride (98-107) mmol/L Carbon Dioxide (22-30) mmol/L Anion Gap (5-15) MEQ/L BUN (7-17) mg/dL Creatinine (0.52-1.04) mg/dL Estimated GFR ML/MIN Glucose (74-106) mg/dL Calcium (8.4-10.2) mg/dL Total Bilirubin (0.2-1.3) mg/dL AST (14-36) U/L ALT (0-35) U/L Alkaline Phosphatase (38-126) U/L Serum Total Protein (6.3-8.2) g/dL Albumin (3.5-5.0) g/dL Urine Color (YELLOW) Urine Appearance (CLEAR) Urine pH (5-6) Ur Specific [place] (1.005-1.025) Urine Protein (Negative) Urine Ketones (NEGATIVE) Urine Blood (0-5) He/ul Urine Nitrite (NEGATIVE) Urine Bilirubin (NEGATIVE) Urine Urobilinogen (0-1) mg/dL Ur Leukocyte Esterase (NEGATIVE) Urine WBC (Auto) (0-5) /HPF Urine RBC (Auto) (0-2) /HPF U Hyaline Cast (Auto) (0-2) /LPF U Epithel Cells (Auto) (FEW) /HPF Urine Bacteria (Auto) (NEGATIVE) /HPF Urine Mucus (Auto) (NEGATIVE) /HPF Urine Culture Reflexed (NO) Ur Random Creatinine 213.0 mg/dl U Random Total Protein 60.0 (<12) mg/dl U [place] Prot/Creat Ratio 0.28 H (0.0-0.15) mg/mg Urine Glucose (NEGATIVE) mg/dL Urine Opiates Level NEGATIVE (NEGATIVE) Ur Methadone NEGATIVE (NEGATIVE) Urine Barbiturates NEGATIVE (NEGATIVE) Ur Phencyclidine (PCP) NEGATIVE (NEGATIVE) Urine Amphetamine NEGATIVE (NEGATIVE) U Benzodiazepine Level NEGATIVE (NEGATIVE) Urine Cocaine NEGATIVE (NEGATIVE) Urine Marijuana (THC) NEGATIVE (NEGATIVE) Hep Bs Antigen (Negative) ABO Group Rh Factor Antibody Screen (NEGATIVE) 08/22/21 08/22/21 08/22/21 Range/Units 10:34 10:34 10:34 WBC (4.0-10.5) K/mm3 RBC (4.1-5.4) M/mm3 Hgb (12.0-16.0) gm/dl Hct (35-47) % MCV (78-100) fl MCH (26-32) pg MCHC (32-36) g/dl RDW (11.5-14.0) % Plt Count (150-450) K/mm3 MPV (7.5-11.0) fl Segmented Neutrophils (36.0-66.0) % Band Neutrophils (0.0-2.0) % Lymphocytes (Manual) (24-44) % Monocytes (Manual) (0.0-12.0) % Eosinophils (Manual) (0.00-3.0) % Hypochromia Platelet Estimate (NORMAL) RBC Morphology Polychromasia Microcytosis Sodium 136 L (137-145) mmol/L Potassium 3.8 (3.5-5.1) mmol/L Chloride 105 (98-107) mmol/L Carbon Dioxide 20 L (22-30) mmol/L Anion Gap 14.7 (5-15) MEQ/L BUN 12 (7-17) mg/dL Creatinine 0.47 L (0.52-1.04) mg/dL Estimated GFR > 60.0 ML/MIN Glucose 79 (74-106) mg/dL Calcium 8.5 (8.4-10.2) mg/dL Total Bilirubin 0.40 (0.2-1.3) mg/dL AST 22 (14-36) U/L ALT 15 (0-35) U/L Alkaline Phosphatase 164 H (38-126) U/L Serum Total Protein 6.6 (6.3-8.2) g/dL Albumin 3.6 (3.5-5.0) g/dL Urine Color (YELLOW) Urine Appearance (CLEAR) Urine pH (5-6) Ur Specific [place] (1.005-1.025) Urine Protein (Negative) Urine Ketones (NEGATIVE) Urine Blood (0-5) He/ul Urine Nitrite (NEGATIVE) Urine Bilirubin (NEGATIVE) Urine Urobilinogen (0-1) mg/dL Ur Leukocyte Esterase (NEGATIVE) Urine WBC (Auto) (0-5) /HPF Urine RBC (Auto) (0-2) /HPF U Hyaline Cast (Auto) (0-2) /LPF U Epithel Cells (Auto) (FEW) /HPF Urine Bacteria (Auto) (NEGATIVE) /HPF Urine Mucus (Auto) (NEGATIVE) /HPF Urine Culture Reflexed (NO) Ur Random Creatinine mg/dl U Random Total Protein (<12) mg/dl U [place] Prot/Creat Ratio (0.0-0.15) mg/mg Urine Glucose (NEGATIVE) mg/dL Urine Opiates Level (NEGATIVE) Ur Methadone (NEGATIVE) Urine Barbiturates (NEGATIVE) Ur Phencyclidine (PCP) (NEGATIVE) Urine Amphetamine (NEGATIVE) U Benzodiazepine Level (NEGATIVE) Urine Cocaine (NEGATIVE) Urine Marijuana (THC) (NEGATIVE) Hep Bs Antigen Negative (Negative) ABO Group O Rh Factor POSITIVE Antibody Screen NEGATIVE (NEGATIVE) 08/22/21 08/23/21 Range/Units 10:34 05:09 WBC 14.9 H (4.0-10.5) K/mm3 RBC 3.55 L (4.1-5.4) M/mm3 Hgb 9.0 L (12.0-16.0) gm/dl Hct 28.6 L (35-47) % MCV 80.6 (78-100) fl MCH 25.4 L (26-32) pg MCHC 31.5 L (32-36) g/dl RDW 14.5 H (11.5-14.0) % Plt Count 215 (150-450) K/mm3 MPV 10.8 (7.5-11.0) fl Segmented Neutrophils 79 H (36.0-66.0) % Band Neutrophils (0.0-2.0) % Lymphocytes (Manual) 16 L (24-44) % Monocytes (Manual) 3 (0.0-12.0) % Eosinophils (Manual) 2 (0.00-3.0) % Hypochromia Platelet Estimate NORMAL (NORMAL) RBC Morphology NORMAL Polychromasia Microcytosis Sodium (137-145) mmol/L Potassium (3.5-5.1) mmol/L Chloride (98-107) mmol/L Carbon Dioxide (22-30) mmol/L Anion Gap (5-15) MEQ/L BUN (7-17) mg/dL Creatinine (0.52-1.04) mg/dL Estimated GFR ML/MIN Glucose (74-106) mg/dL Calcium (8.4-10.2) mg/dL Total Bilirubin (0.2-1.3) mg/dL AST (14-36) U/L ALT (0-35) U/L Alkaline Phosphatase (38-126) U/L Serum Total Protein (6.3-8.2) g/dL Albumin (3.5-5.0) g/dL Urine Color YELLOW (YELLOW) Urine Appearance CLOUDY (CLEAR) Urine pH 5.0 (5-6) Ur Specific [place] 1.030 (1.005-1.025) Urine Protein 100 (Negative) Urine Ketones NEGATIVE (NEGATIVE) Urine Blood LARGE (0-5) He/ul Urine Nitrite NEGATIVE (NEGATIVE) Urine Bilirubin NEGATIVE (NEGATIVE) Urine Urobilinogen NEGATIVE (0-1) mg/dL Ur Leukocyte Esterase MODERATE (NEGATIVE) Urine WBC (Auto) 16-25 (0-5) /HPF Urine RBC (Auto) >101 (0-2) /HPF U Hyaline Cast (Auto) 3-5 (0-2) /LPF U Epithel Cells (Auto) FEW (FEW) /HPF Urine Bacteria (Auto) NONE (NEGATIVE) /HPF Urine Mucus (Auto) SLIGHT (NEGATIVE) /HPF Urine Culture Reflexed YES (NO) Ur Random Creatinine mg/dl U Random Total Protein (<12) mg/dl U [place] Prot/Creat Ratio (0.0-0.15) mg/mg Urine Glucose NEGATIVE (NEGATIVE) mg/dL Urine Opiates Level (NEGATIVE) Ur Methadone (NEGATIVE) Urine Barbiturates (NEGATIVE) Ur Phencyclidine (PCP) (NEGATIVE) Urine Amphetamine (NEGATIVE) U Benzodiazepine Level (NEGATIVE) Urine Cocaine (NEGATIVE) Urine Marijuana (THC) (NEGATIVE) Hep Bs Antigen (Negative) ABO Group Rh Factor Antibody Screen (NEGATIVE) Multi-Disciplinary Progress Notes: Multi-Disciplinary Progress Notes 08/22/21 20:51 Respiratory Note by Zayda So Carl WAS CALLED TO BE ON STANDBY FOR THE OF THIS PT'S INFANT. THE CHILD WAS BORN PINK AND CRYING. THE WAS PLACED ON THE MOTHER'S CHEST, WHERE NURSING STATED THAT IT HAD CLEAR BS AND A GOOD HEART RATE. UPON COMING TO THE WARMER AT APPROXIMATELY 3 MINUTES AFTER , IT'S SPO2 WAS 92% AND ITS HEART RATE WAS 142BPM. LUNGS WERE STILL CLEAR AT THIS TIME. AT 6 MINUTES AFTER , IT'S SPO2 WAS 98% AND ITS HEART RATE WAS 137BPM. NO RESPIRATORY INTERVENTION WAS NEEDED AT THIS TIME. Initialized on 08/22/21 20:51 - END OF NOTE Assessment/Plan (1) Vaginal delivery Current Visit: Yes Status: Acute Code(s): O80 - ENCOUNTER FOR FULL-TERM UNCOMPLICATED DELIVERY (2) Pre-eclampsia affecting , antepartum Current Visit: Yes Status: Acute Code(s): O14.90 - UNSPECIFIED PRE- ECLAMPSIA, UNSPECIFIED TRIMESTER
--- NOTE | 2021-08-23 10:32 | PCM.DS ---
Discharge Summary Date of Admission: 08/22/21 09:54 Admitting Physician: SATURNINO FLORES DO Consults: Consults on Case 08/22/21 10:15 Notify Anesthesia Provider PRN 08/23/21 02:00 Navigation ONCE Primary Care Provider: AUDREY COPPOLA Allergies Allergies Penicillins Allergy (Severe, Verified 08/18/21 04:19) Anaphylactic Reaction Hospital Summary - Hospital Course Hospital Course: pt admitted on aug 22 for induction at 37 6/7 wks gestation secondary to having elevated bp in office 154/84 and was noted having 3 + proteinuria noted on urine dip. pt denied bowens or visual disturbance and at this time was sent to labor delivery for induction. pt was started on pitocin and delivered live baby boy via without complication on aug 22. during period did well and stable for discharge on aug 24. vitals normal at this time with alleviation of bp since her delivery. all questions answered to her satisfaction and was advised to fu in office in 2 wks. hgb 9 at this time. - Vitals & Intake/Output Vital Signs: Vital Signs Temperature 97.8 F 08/23/21 08:00 Pulse Rate 82 08/23/21 08:00 Respiratory Rate 18 08/23/21 08:00 Blood Pressure 137/83 08/23/21 08:00 O2 Sat by Pulse Oximetry 99 08/23/21 08:00 Intake & Output: Intake & Output 08/20/21 08/21/21 08/22/21 08/23/21 11:59 11:59 11:59 11:59 Intake Total 0 Output Total 530 Balance -530 Weight 116.12 kg - Lab Result Diagrams: 08/23/21 05:09 08/22/21 10:34 Lab Results-Last 24 Hrs: Lab Results-Last 24 Hours 08/22/21 08/22/21 08/22/21 Range/Units 10:28 10:28 10:34 WBC 12.6 H (4.0-10.5) K/mm3 RBC 3.89 L (4.1-5.4) M/mm3 Hgb 10.0 L (12.0-16.0) gm/dl Hct 30.9 L (35-47) % MCV 79.4 (78-100) fl MCH 25.7 L (26-32) pg MCHC 32.4 (32-36) g/dl RDW 14.3 H (11.5-14.0) % Plt Count 258 (150-450) K/mm3 MPV 10.9 (7.5-11.0) fl Segmented Neutrophils 75 H (36.0-66.0) % Band Neutrophils 3 H (0.0-2.0) % Lymphocytes (Manual) 20 L (24-44) % Monocytes (Manual) 2 (0.0-12.0) % Eosinophils (Manual) (0.00-3.0) % Hypochromia 1+ Platelet Estimate NORMAL (NORMAL) RBC Morphology ABNORMAL Polychromasia 1+ Microcytosis 1+ Sodium (137-145) mmol/L Potassium (3.5-5.1) mmol/L Chloride (98-107) mmol/L Carbon Dioxide (22-30) mmol/L Anion Gap (5-15) MEQ/L BUN (7-17) mg/dL Creatinine (0.52-1.04) mg/dL Estimated GFR ML/MIN Glucose (74-106) mg/dL Calcium (8.4-10.2) mg/dL Total Bilirubin (0.2-1.3) mg/dL AST (14-36) U/L ALT (0-35) U/L Alkaline Phosphatase (38-126) U/L Serum Total Protein (6.3-8.2) g/dL Albumin (3.5-5.0) g/dL Urine Color (YELLOW) Urine Appearance (CLEAR) Urine pH (5-6) Ur Specific [place] (1.005-1.025) Urine Protein (Negative) Urine Ketones (NEGATIVE) Urine Blood (0-5) He/ul Urine Nitrite (NEGATIVE) Urine Bilirubin (NEGATIVE) Urine Urobilinogen (0-1) mg/dL Ur Leukocyte Esterase (NEGATIVE) Urine WBC (Auto) (0-5) /HPF Urine RBC (Auto) (0-2) /HPF U Hyaline Cast (Auto) (0-2) /LPF U Epithel Cells (Auto) (FEW) /HPF Urine Bacteria (Auto) (NEGATIVE) /HPF Urine Mucus (Auto) (NEGATIVE) /HPF Urine Culture Reflexed (NO) Ur Random Creatinine 213.0 mg/dl U Random Total Protein 60.0 (<12) mg/dl U [employer] [place] Prot/Creat Ratio 0.28 H (0.0-0.15) mg/mg Urine Glucose (NEGATIVE) mg/dL Urine Opiates Level NEGATIVE (NEGATIVE) Ur Methadone NEGATIVE (NEGATIVE) Urine Barbiturates NEGATIVE (NEGATIVE) Ur Phencyclidine (PCP) NEGATIVE (NEGATIVE) Urine Amphetamine NEGATIVE (NEGATIVE) U Benzodiazepine Level NEGATIVE (NEGATIVE) Urine Cocaine NEGATIVE (NEGATIVE) Urine Marijuana (THC) NEGATIVE (NEGATIVE) Hep Bs Antigen (Negative) ABO Group Rh Factor Antibody Screen (NEGATIVE) 08/22/21 08/22/21 08/22/21 Range/Units 10:34 10:34 10:34 WBC (4.0-10.5) K/mm3 RBC (4.1-5.4) M/mm3 Hgb (12.0-16.0) gm/dl Hct (35-47) % MCV (78-100) fl MCH (26-32) pg MCHC (32-36) g/dl RDW (11.5-14.0) % Plt Count (150-450) K/mm3 MPV (7.5-11.0) fl Segmented Neutrophils (36.0-66.0) % Band Neutrophils (0.0-2.0) % Lymphocytes (Manual) (24-44) % Monocytes (Manual) (0.0-12.0) % Eosinophils (Manual) (0.00-3.0) % Hypochromia Platelet Estimate (NORMAL) RBC Morphology Polychromasia Microcytosis Sodium 136 L (137-145) mmol/L Potassium 3.8 (3.5-5.1) mmol/L Chloride 105 (98-107) mmol/L Carbon Dioxide 20 L (22-30) mmol/L Anion Gap 14.7 (5-15) MEQ/L BUN 12 (7-17) mg/dL Creatinine 0.47 L (0.52-1.04) mg/dL Estimated GFR > 60.0 ML/MIN Glucose 79 (74-106) mg/dL Calcium 8.5 (8.4-10.2) mg/dL Total Bilirubin 0.40 (0.2-1.3) mg/dL AST 22 (14-36) U/L ALT 15 (0-35) U/L Alkaline Phosphatase 164 H (38-126) U/L Serum Total Protein 6.6 (6.3-8.2) g/dL Albumin 3.6 (3.5-5.0) g/dL Urine Color (YELLOW) Urine Appearance (CLEAR) Urine pH (5-6) Ur Specific [place] (1.005-1.025) Urine Protein (Negative) Urine Ketones (NEGATIVE) Urine Blood (0-5) He/ul Urine Nitrite (NEGATIVE) Urine Bilirubin (NEGATIVE) Urine Urobilinogen (0-1) mg/dL Ur Leukocyte Esterase (NEGATIVE) Urine WBC (Auto) (0-5) /HPF Urine RBC (Auto) (0-2) /HPF U Hyaline Cast (Auto) (0-2) /LPF U Epithel Cells (Auto) (FEW) /HPF Urine Bacteria (Auto) (NEGATIVE) /HPF Urine Mucus (Auto) (NEGATIVE) /HPF Urine Culture Reflexed (NO) Ur Random Creatinine mg/dl U Random Total Protein (<12) mg/dl U [employer] [place] Prot/Creat Ratio (0.0-0.15) mg/mg Urine Glucose (NEGATIVE) mg/dL Urine Opiates Level (NEGATIVE) Ur Methadone (NEGATIVE) Urine Barbiturates (NEGATIVE) Ur Phencyclidine (PCP) (NEGATIVE) Urine Amphetamine (NEGATIVE) U Benzodiazepine Level (NEGATIVE) Urine Cocaine (NEGATIVE) Urine Marijuana (THC) (NEGATIVE) Hep Bs Antigen Negative (Negative) ABO Group O Rh Factor POSITIVE Antibody Screen NEGATIVE (NEGATIVE) 08/22/21 08/23/21 Range/Units 10:34 05:09 WBC 14.9 H (4.0-10.5) K/mm3 RBC 3.55 L (4.1-5.4) M/mm3 Hgb 9.0 L (12.0-16.0) gm/dl Hct 28.6 L (35-47) % MCV 80.6 (78-100) fl MCH 25.4 L (26-32) pg MCHC 31.5 L (32-36) g/dl RDW 14.5 H (11.5-14.0) % Plt Count 215 (150-450) K/mm3 MPV 10.8 (7.5-11.0) fl Segmented Neutrophils 79 H (36.0-66.0) % Band Neutrophils (0.0-2.0) % Lymphocytes (Manual) 16 L (24-44) % Monocytes (Manual) 3 (0.0-12.0) % Eosinophils (Manual) 2 (0.00-3.0) % Hypochromia Platelet Estimate NORMAL (NORMAL) RBC Morphology NORMAL Polychromasia Microcytosis Sodium (137-145) mmol/L Potassium (3.5-5.1) mmol/L Chloride (98-107) mmol/L Carbon Dioxide (22-30) mmol/L Anion Gap (5-15) MEQ/L BUN (7-17) mg/dL Creatinine (0.52-1.04) mg/dL Estimated GFR ML/MIN Glucose (74-106) mg/dL Calcium (8.4-10.2) mg/dL Total Bilirubin (0.2-1.3) mg/dL AST (14-36) U/L ALT (0-35) U/L Alkaline Phosphatase (38-126) U/L Serum Total Protein (6.3-8.2) g/dL Albumin (3.5-5.0) g/dL Urine Color YELLOW (YELLOW) Urine Appearance CLOUDY (CLEAR) Urine pH 5.0 (5-6) Ur Specific [place] 1.030 (1.005-1.025) Urine Protein 100 (Negative) Urine Ketones NEGATIVE (NEGATIVE) Urine Blood LARGE (0-5) He/ul Urine Nitrite NEGATIVE (NEGATIVE) Urine Bilirubin NEGATIVE (NEGATIVE) Urine Urobilinogen NEGATIVE (0-1) mg/dL Ur Leukocyte Esterase MODERATE (NEGATIVE) Urine WBC (Auto) 16-25 (0-5) /HPF Urine RBC (Auto) >101 (0-2) /HPF U Hyaline Cast (Auto) 3-5 (0-2) /LPF U Epithel Cells (Auto) FEW (FEW) /HPF Urine Bacteria (Auto) NONE (NEGATIVE) /HPF Urine Mucus (Auto) SLIGHT (NEGATIVE) /HPF Urine Culture Reflexed YES (NO) Ur Random Creatinine mg/dl U Random Total Protein (<12) mg/dl U [employer] [place] Prot/Creat Ratio (0.0-0.15) mg/mg Urine Glucose NEGATIVE (NEGATIVE) mg/dL Urine Opiates Level (NEGATIVE) Ur Methadone (NEGATIVE) Urine Barbiturates (NEGATIVE) Ur Phencyclidine (PCP) (NEGATIVE) Urine Amphetamine (NEGATIVE) U Benzodiazepine Level (NEGATIVE) Urine Cocaine (NEGATIVE) Urine Marijuana (THC) (NEGATIVE) Hep Bs Antigen (Negative) ABO Group Rh Factor Antibody Screen (NEGATIVE) - Procedures and Test Procedures and Tests throughout Hospitalization: Therapy Orders & Screens 08/22/21 20:30 Standby STAT Comment: Diagnosis: Pre-eclampsie Final Diagnosis/Problem List - Final Discharge Diagnosis/Problem (1) Vaginal delivery Current Visit: Yes Status: Acute Code(s): O80 - ENCOUNTER FOR FULL-TERM UNCOMPLICATED DELIVERY (2) Pre-eclampsia affecting , antepartum Current Visit: Yes Status: Acute Code(s): O14.90 - UNSPECIFIED PRE- ECLAMPSIA, UNSPECIFIED TRIMESTER - Discharge Disposition: Home, Self-Care Condition: Stable Prescriptions: No Action Pnv No.95/Ferrous Fum/Folic AC [ Multivitamin Tablet] 1 tab PO DAILY Follow up with: AUDREY COPPOLA [Primary Care Provider] - SATURNINO FLORES DO [ACTIVE STAFF] - 2 weeks (should fu in office in 2 wks for bp evaluation should call office for any issues she may have prior to appt.)
[2021-08-24] MEDS: MOTRIN 400 MG PO PRN ×2 (03:35→16:44)
[2021-08-24] MEDS: TYLENOL EXTRA STRENGTH 500 MG PO PRN (08:50)
[2021-08-24] MEDS: Colace 100 MG PO SCH (09:06)
[2021-08-24] MEDS: FERREX 150 PO SCH (09:06)
[2021-08-24 10:18] VITALS: O2SAT 100
[2021-08-24 18:25] VITALS: BP 138/87; PULSE 86
== END 2021-08-24 19:26 | disposition home or self-care (01) | DRG 807 ==
LOC: OB 09:54 → OBSVTOIN 14:37
PROVIDERS: ADMIT Obstetrics & Gynecology; ATTEND Obstetrics & Gynecology
PROC: 10E0XZZ Delivery of Products of Conception, External Approach (ICD-10-PCS; principal; 2021-08-22)
DX: O14.94 Unspecified pre-eclampsia, complicating childbirth (principal); Z37.0 Single live birth; Z3A.37 37 weeks gestation of pregnancy
CPT/HCPCS: 36415; 59409; 80053; 80307; 81001; 82570; 84156; 85025; 86850; 86900; 86901; 87086; 87340; 90471; 90715; 94799; G0378; J2590; A9270-GY

== ENCOUNTER 2021-10-13 03:02 | Emergency (ER) | payer OTHER ==
[2021-10-13] MEDS ORDERED: Sodium Chloride 0.9% 1000 ML 1,000 ML IV STA (03:44)
[2021-10-13] MEDS ORDERED: Sodium Chloride 0.9% 1000 ML 1,000 ML ONE (03:48)
[2021-10-13 04:04] LABS: Absolute Neutrophil Ct (ANC) 10.22 (1.4-6.9); Basophil (Absolute #) 0.02 (0-0.4); Eosinophil % 0.1 % (0.00-5.0); Eosinophil (Absolute #) 0.01 (0-0.5); Hematocrit 35.4 % (35-47); Hemoglobin 11.3 gm/dl (12.0-16.0); Lymphocyte (Absolute #) 0.57 (1.0-4.6); Mean Cell Volume 76.3 fl (78-100); Mean Corpuscular Hemoglobin 24.4 pg (26-32); Mean Corpuscular Hgb Concent. 31.9 g/dl (32-36); Mean Platelet Volume 9.1 fl (7.5-11.0); Monocyte (Absolute #) 0.48 (0.0-1.3); Monocytes % 4.2 % (0.0-12.0); Neutrophil % 90.5 % (36.0-66.0); Platelet Count 275 K/mm3 (150-450); Red Blood Count 4.64 M/mm3 (4.1-5.4); Red Cell Distribution Width 15.4 % (11.5-14.0); White Blood Count 11.3 K/mm3 (4.0-10.5)
[2021-10-13 04:22] LABS: Appearance CLEAR (CLEAR); Bilirubin NEGATIVE (NEGATIVE); Dipstick done @ ? MAIN LAB; Glucose NEGATIVE (NEGATIVE); Ketones NEGATIVE (NEGATIVE); Nitrite NEGATIVE (NEGATIVE); Ph 5.5 (5-6); Protein,Urine Dip NEGATIVE (Negative); RBC SMALL Ery/ul (0-5); Urobilinogen 0.2 mg/dL (0-1)
[2021-10-13 04:23] LABS: Epithelial Cells RARE /HPF (FEW); Mucus SLIGHT /HPF (NEGATIVE); Urine Cultured Indicated? YES
[2021-10-13 04:25] LABS: HCG,QUALITATIVE URINE NEGATIVE (Negative)
[2021-10-13 04:27] LABS: INFLUENZA A NEGATIVE (NEGATIVE); INFLUENZA B NEGATIVE (NEGATIVE)
[2021-10-13 04:30] LABS: Slide Review 1 YES
[2021-10-13 04:33] LABS: ALBUMIN 4.5 g/dL (3.5-5.0); ALKALINE PHOSPHATASE 84 U/L (38-126); ANION GAP 15.5 MEQ/L (5-15); BLOOD UREA NITROGEN 8 mg/dL (7-17); CHLORIDE 99 mmol/L (98-107); Calcium 9.3 mg/dL (8.4-10.2); Carbon Dioxide 24 mmol/L (22-30); Creatinine 1 0.59 mg/dL (0.52-1.04); EST GLOMERULAR FILTRATION RATE > 60.0 ML/MIN; Glucose 138 mg/dL (74-106); Potassium 3.8 mmol/L (3.5-5.1); SGOT/AST 22 U/L (14-36); SGPT/ALT 24 U/L (0-35); SODIUM 135 mmol/L (137-145); Total Protein 7.6 g/dL (6.3-8.2)
[2021-10-13 05:02] VITALS: BP 128/76
--- NOTE | 2021-10-13 05:07 | ERPHSYRPT ---
- History of Present Illness Time Seen by Provider: 10/13/21 03:35 Source: patient Exam Limitations: no limitations Patient Subjective Stated Complaint: Pt states " I started feeling bad on Wednesday and started getting a fever on Wednesday. I got a tattoo on Wednesday but I don't know if that has anything to do with it." Triage Nursing Assessment: Pt alert and oriented x3, skin pink warm and dry, Pt c/o nausea and a headache at this time, Pt states she was running a fever of 102.4 last night and took tylenol around 2300. pt is currently afebrile. Pt denies abd pain or diarrhea at this time. Pt's last episode of vomiting yesterday evening. Physician History: 25-year-old female presented in the ER with chief complaint of fever, body aches, feeling weak fatigued tired for the last couple of days with associated nausea and vomiting. Patient reports she started to feel bad couple of days ago after she had a tattoo made on her left upper lateral thigh without any swelling around the area. She vomited 3-4 times and last episode was yesterday. She has a headache, feel dizzy lightheaded. Fevers was 102 prior to arrival and improved with Tylenol. Currently she is afebrile. Denies cough congestion or shortness of breath. No known sick contact. Timing/Duration: day(s) (2), gradual onset, worse Fever Severity: moderate Fever Therapy NETWORK SUPPORT ANALYST: Acetaminophen Associated Symptoms: headache, muscle aches, nausea/vomiting, weakness Allergies/Adverse Reactions: Penicillins Allergy (Severe, Verified 08/18/21 04:19) Anaphylactic Reaction Hx Tetanus, Diphtheria Vaccination/Date Given: Yes Hx Influenza Vaccination/Date Given: Yes Hx Pneumococcal Vaccination/Date Given: No Immunizations Up to Date: Yes Travel Risk - International Travel Have you traveled outside of the country in past 3 weeks: No - Coronavirus Screening Are you exhibiting any of the following symptoms?: No - Vaccine Status Have you recieved a Covid-19 vaccination: No - Review of Systems Constitutional: Fever, Chills, Fatigue, Weakness Eyes: No Symptoms Ears, Nose, & Throat: No Symptoms Respiratory: No Symptoms Cardiac: No Symptoms Abdominal/Gastrointestinal: Nausea, Vomiting Genitourinary Symptoms: No Symptoms Musculoskeletal: Myalgias Neurological: Dizziness, Headache Psychological: No Symptoms Endocrine: No Symptoms Hematologic/Lymphatic: No Symptoms Immunological/Allergic: No Symptoms - Past Medical History Pertinent Past Medical History: Yes Neurological History: No Pertinent History ENT History: No Pertinent History Cardiac History: No Pertinent History Respiratory History: No Pertinent History Endocrine Medical History: No Pertinent History Musculoskeletal History: No Pertinent History GI Medical History: Gallbladder Disease, Pancreatitis History: No Pertinent History Psycho-Social History: No Pertinent History Female Reproductive Disorders: No Pertinent History Other Medical History: lt arm fx, pancreatitis. COVID pneumonia June 2021 - Past Surgical History Past Surgical History: No Neuro Surgical History: No Pertinent History Cardiac: No Pertinent History Respiratory: No Pertinent History Gastrointestinal: No Pertinent History Genitourinary: No Pertinent History Musculoskeletal: No Pertinent History Female Surgical History: No Pertinent History - Social History Smoking Status: Never smoker Exposure to second hand smoke: No Alcohol Use: None Drug Use: none Patient Lives Alone: No Significant Family History: no pertinent family hx - Female History Hx Last Menstrual Period: last week Hx Now: No - Nursing Vital Signs Nursing Vital Signs: Initial Vital Signs Temperature 99.4 F 10/13/21 03:14 Pulse Rate 121 H 10/13/21 03:14 Respiratory Rate 18 10/13/21 03:14 Blood Pressure 135/71 10/13/21 03:14 O2 Sat by Pulse Oximetry 98 10/13/21 03:14 Pain Scale Pain Intensity 10 - Physical Exam General Appearance: no apparent distress, alert Eye Exam: PERRL/EOMI, eyes nml inspection ENT Exam: normal ENT inspection, no apparent trauma, hearing grossly normal, TMs normal Neck Exam: normal inspection, non-tender, supple, full range of motion Respiratory Exam: normal breath sounds, lungs clear Cardiovascular/Chest Exam: normal heart sounds, tachycardia Gastrointestinal/Abdominal Exam: soft, non tender, no distention, no mass, no guarding Extremity Exam: non-tender, normal range of motion Neurologic Exam: alert, oriented x 3, cooperative, 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 Tattoos made recently.) SpO2 Interpretation: normal SpO2: 98 O2 Delivery: Room Air Ordered Tests: Active Orders 24 hr Category Date Time Status IV Insertion STAT Care 10/13/21 03:44 Completed CBC W DIFF Stat Lab 10/13/21 04:03 Completed CMP Stat Lab 10/13/21 04:03 Completed CULTURE,URINE Stat Lab 10/13/21 03:47 Received HCG,QUALITATIVE URINE Stat Lab 10/13/21 04:03 Completed INFLUENZA A+B VONDA Stat Lab 10/13/21 04:03 Completed Medication Summary Discontinued Medications Generic Name Dose Route Start Last Admin Trade Name Swapna PRN Reason Stop Dose Admin Sodium Chloride 1,000 mls @ 999 mls/hr 10/13/21 03:44 10/13/21 05:22 Sodium Chloride 0.9% 1000 Ml IV 10/13/21 04:44 Infused .Q1H1M STA Infusion Sodium Chloride Confirm 10/13/21 03:48 Sodium Chloride 0.9% 1000 Ml Administered 10/13/21 03:49 Dose 1,000 mls @ ud .ROUTE .STK-MED ONE Ibuprofen 600 mg 10/13/21 05:21 10/13/21 05:23 Ibuprofen 600 Mg Tablet PO 10/13/21 05:22 600 mg STAT ONE Administration Ibuprofen Confirm 10/13/21 05:23 Ibuprofen 600 Mg Tablet Administered 10/13/21 05:24 Dose 600 mg .ROUTE .STK-MED ONE Lab/Rad Data: Laboratory Result Diagrams 10/13/21 04:03 10/13/21 04:03 Laboratory Results 10/13/21 10/13/21 10/13/21 Range/Units 04:04 04:03 04:03 WBC (4.0-10.5) K/mm3 RBC (4.1-5.4) M/mm3 Hgb (12.0-16.0) gm/dl Hct (35-47) % MCV (78-100) fl MCH (26-32) pg MCHC (32-36) g/dl RDW (11.5-14.0) % Plt Count (150-450) K/mm3 MPV (7.5-11.0) fl Gran % (36.0-66.0) % Eos # (Auto) (0-0.5) Absolute Lymphs (auto) (1.0-4.6) Absolute Monos (auto) (0.0-1.3) Lymphocytes % (24.0-44.0) % Monocytes % (0.0-12.0) % Eosinophils % (0.00-5.0) % Basophils % (0.0-0.4) % Absolute Granulocytes (1.4-6.9) Basophils # (0-0.4) Sodium 135 L (137-145) mmol/L Potassium 3.8 (3.5-5.1) mmol/L Chloride 99 (98-107) mmol/L Carbon Dioxide 24 (22-30) mmol/L Anion Gap 15.5 H (5-15) MEQ/L BUN 8 (7-17) mg/dL Creatinine 0.59 (0.52-1.04) mg/dL Estimated GFR > 60.0 ML/MIN Glucose 138 H (74-106) mg/dL Calcium 9.3 (8.4-10.2) mg/dL Total Bilirubin 0.60 (0.2-1.3) mg/dL AST 22 (14-36) U/L ALT 24 (0-35) U/L Alkaline Phosphatase 84 (38-126) U/L Serum Total Protein 7.6 (6.3-8.2) g/dL Albumin 4.5 (3.5-5.0) g/dL Urinalys Dipstick Clnc Urine Color (YELLOW) Urine Appearance (CLEAR) Urine pH (5-6) Ur Specific [place] (1.005-1.025) POC Urine Protein Conf (Negative) Urine Ketones (NEGATIVE) Urine Nitrite (NEGATIVE) Urine Bilirubin (NEGATIVE) Urine Urobilinogen (0-1) mg/dL Urine Leukocytes (NEGATIVE) Urine WBC (Auto) (0-5) /HPF Urine RBC (Auto) (0-2) /HPF U Epithel Cells (Auto) (FEW) /HPF Urine Bacteria (Auto) (NEGATIVE) /HPF Urine RBC (0-5) He/ul Urine Mucus (Auto) (NEGATIVE) /HPF Ur Culture Indicated? Urine Glucose (NEGATIVE) mg/dL Urine HCG, Qual NEGATIVE (Negative) Influenza Type A Ag NEGATIVE (NEGATIVE) Influenza Type B Ag NEGATIVE (NEGATIVE) Group A Strep Antibody NOT DETECTED (NEGATIVE) Slides for Path Review 10/13/21 10/13/21 Range/Units 04:03 03:47 WBC 11.3 H (4.0-10.5) K/mm3 RBC 4.64 (4.1-5.4) M/mm3 Hgb 11.3 L (12.0-16.0) gm/dl Hct 35.4 (35-47) % MCV 76.3 L (78-100) fl MCH 24.4 L (26-32) pg MCHC 31.9 L (32-36) g/dl RDW 15.4 H (11.5-14.0) % Plt Count 275 (150-450) K/mm3 MPV 9.1 (7.5-11.0) fl Gran % 90.5 H (36.0-66.0) % Eos # (Auto) 0.01 (0-0.5) Absolute Lymphs (auto) 0.57 L (1.0-4.6) Absolute Monos (auto) 0.48 (0.0-1.3) Lymphocytes % 5.0 L (24.0-44.0) % Monocytes % 4.2 (0.0-12.0) % Eosinophils % 0.1 (0.00-5.0) % Basophils % 0.2 (0.0-0.4) % Absolute Granulocytes 10.22 H (1.4-6.9) Basophils # 0.02 (0-0.4) Sodium (137-145) mmol/L Potassium (3.5-5.1) mmol/L Chloride (98-107) mmol/L Carbon Dioxide (22-30) mmol/L Anion Gap (5-15) MEQ/L BUN (7-17) mg/dL Creatinine (0.52-1.04) mg/dL Estimated GFR ML/MIN Glucose (74-106) mg/dL Calcium (8.4-10.2) mg/dL Total Bilirubin (0.2-1.3) mg/dL AST (14-36) U/L ALT (0-35) U/L Alkaline Phosphatase (38-126) U/L Serum Total Protein (6.3-8.2) g/dL Albumin (3.5-5.0) g/dL Urinalys Dipstick Clnc MAIN LAB Urine Color YELLOW (YELLOW) Urine Appearance CLEAR (CLEAR) Urine pH 5.5 (5-6) Ur Specific [place] 1.020 (1.005-1.025) POC Urine Protein Conf NEGATIVE (Negative) Urine Ketones NEGATIVE (NEGATIVE) Urine Nitrite NEGATIVE (NEGATIVE) Urine Bilirubin NEGATIVE (NEGATIVE) Urine Urobilinogen 0.2 (0-1) mg/dL Urine Leukocytes TRACE (NEGATIVE) Urine WBC (Auto) 6-10 (0-5) /HPF Urine RBC (Auto) NONE (0-2) /HPF U Epithel Cells (Auto) RARE (FEW) /HPF Urine Bacteria (Auto) NONE (NEGATIVE) /HPF Urine RBC SMALL (0-5) He/ul Urine Mucus (Auto) SLIGHT (NEGATIVE) /HPF Ur Culture Indicated? YES Urine Glucose NEGATIVE (NEGATIVE) mg/dL Urine HCG, Qual (Negative) Influenza Type A Ag (NEGATIVE) Influenza Type B Ag (NEGATIVE) Group A Strep Antibody (NEGATIVE) Slides for Path Review YES - Progress Progress: improved Progress Note: 10/13/21 05:04 She is given fluids and ibuprofen, on reevaluation feeling better. Minimally elevated white count of 11, grossly unremarkable chemistries. No definitive UTI. I believe patient has viral etiology symptoms although has negative flu. Recommended supportive care and outpatient follow-up. Discussed signs symptoms of worsening needing return to ER which she seems understanding. Counseled pt/family regarding: lab results, diagnosis, need for follow-up - Departure Departure Disposition: Home Clinical Impression: Viral syndrome, Fever Condition: Stable Critical Care Time: No Referrals: AUDREY COPPOLA [Primary Care Provider] - Follow Up with PCP/3 days Instructions: Fever, Adult (DC), Viral Syndrome (DC) Additional Instructions: Drink plenty of fluids. Take Tylenol/ibuprofen as needed for fever chills/body aches. Follow-up with primary care for reevaluation. Return to ER for any worsening.
[2021-10-13] MEDS ORDERED: MOTRIN 600 MG PO ONE (05:21)
[2021-10-13] MEDS ORDERED: MOTRIN 600 MG ONE (05:23)
[2021-10-13 05:31] VITALS: PULSE 101
[2021-10-13 06:20] VITALS: O2SAT 98
== END 2021-10-13 05:34 | disposition home or self-care (01) ==
LOC: ED 03:02
DX: B34.9 Viral infection, unspecified (principal); R50.9 Fever, unspecified; R51.9 Headache, unspecified; M79.10 Myalgia, unspecified site; R11.2 Nausea with vomiting, unspecified; R53.1 Weakness; R42 Dizziness and giddiness
CPT/HCPCS: 36000; 36415; 80053; 81015; 84703; 85025; 87086; 87400; 87651; 96360; 99284; A9270-GY

== ENCOUNTER 2022-10-30 18:19 | Emergency (ER) | payer OTHER ==
[2022-10-30] MEDS ORDERED: TORAdol 30 mg Injection IM ONE (18:47)
[2022-10-30] MEDS ORDERED: TORAdol 30 mg Injection ONE (18:48)
--- NOTE | 2022-10-30 19:54 | ERPHSYRPT ---
- History of Present Illness Time Seen by Provider: 10/30/22 18:29 Source: patient, family Exam Limitations: no limitations Patient Subjective Stated Complaint: Pt missed a step on her outside stairs and fell down approx 3-4 stairs injuring her right lateral ankle Triage Nursing Assessment: Pt brought to the ER by her boyfriend, vitals wnl, rates pain as 7/10, right lateral ankle swelling, right lower leg pain upon palpatation, denies any other injury, denies LOC, denies hitting head Physician History: 26 years old female presented in the ER after she missed a step and fell 3-4 steps and injured right lower leg and lateral ankle having difficulty weightbearing with moderate intensity sharp pain. Did not hit her head, no injury anywhere else. Method of Injury: fell Occurred: just prior to arrival Quality: sharpness Severity of Pain-Max: moderate Severity of Pain-Current: moderate Lower Extremities Pain: leg: right, ankle: right Modifying Factors: Improves With: immobilization. Worsens With: movement Associated Symptoms: other (Difficulty weightbearing) Allergies/Adverse Reactions: Penicillins Allergy (Severe, Verified 10/30/22 18:52) Anaphylactic Reaction Home Medications: buPROPion HCL [Bupropion Xl] 300 mg PO DAILY 10/30/22 [History] Hx Tetanus, Diphtheria Vaccination/Date Given: Yes Hx Influenza Vaccination/Date Given: Yes Hx Pneumococcal Vaccination/Date Given: No Travel Risk - International Travel Have you traveled outside of the country in past 3 weeks: No - Coronavirus Screening Are you exhibiting any of the following symptoms?: No - Vaccine Status Have you recieved a Covid-19 vaccination: No - Review of Systems Constitutional: No Symptoms Ears, Nose, & Throat: No Symptoms Respiratory: No Symptoms Cardiac: No Symptoms Abdominal/Gastrointestinal: No Symptoms Genitourinary Symptoms: No Symptoms Musculoskeletal: Fall, Injury, Joint Pain Skin: No Symptoms Neurological: No Symptoms Endocrine: No Symptoms - Past Medical History Pertinent Past Medical History: Yes Neurological History: No Pertinent History ENT History: No Pertinent History Cardiac History: No Pertinent History Respiratory History: No Pertinent History Endocrine Medical History: No Pertinent History Musculoskeletal History: No Pertinent History GI Medical History: Gallbladder Disease, Pancreatitis History: No Pertinent History Psycho-Social History: No Pertinent History Female Reproductive Disorders: No Pertinent History Other Medical History: lt arm fx, pancreatitis. COVID pneumonia June 2021 - Past Surgical History Past Surgical History: No Neuro Surgical History: No Pertinent History Cardiac: No Pertinent History Respiratory: No Pertinent History Gastrointestinal: No Pertinent History Genitourinary: No Pertinent History Musculoskeletal: No Pertinent History Female Surgical History: No Pertinent History - Social History Smoking Status: Never smoker Exposure to second hand smoke: No Alcohol Use: None Drug Use: none Patient Lives Alone: No Significant Family History: no pertinent family hx - Female History Hx Last Menstrual Period: 10/19/2022 Hx Now: No - Nursing Vital Signs Nursing Vital Signs: Initial Vital Signs Temperature 99.4 F 10/30/22 18:28 Pulse Rate 90 10/30/22 18:28 Blood Pressure 129/102 10/30/22 18:28 O2 Sat by Pulse Oximetry 99 10/30/22 18:28 Pain Scale Pain Intensity 7 - Physical Exam General Appearance: no apparent distress, alert Eyes, Ears, Nose, Throat Exam: normal ENT inspection Neck Exam: normal inspection, full range of motion Cardiovascular/Respiratory Exam: normal breath sounds, regular rate/rhythm Gastrointestinal/Abdominal Exam: non-tender, soft Back Exam: normal inspection Legs Exam: right leg: bone tenderness (Minimal zuniga tenderness), pain (Soft tissue), soft tissue tenderness, left leg: non-tender, bilateral leg: normal inspection, normal range of motion, no evidence of injury Ankle Exam: right ankle: bone tenderness (Lateral malleolus), limited range of motion, pain, soft tissue tenderness, swelling, left ankle: non-tender, normal inspection, normal range of motion, no evidence of injury Foot Exam: bilateral foot: non-tender, normal inspection, normal range of motion, no evidence of injury Neuro/Tendon Exam: normal sensation, normal motor functions, normal tendon functions Mental Status Exam: alert, oriented x 3, cooperative Skin Exam: normal color SpO2 Interpretation: normal SpO2: 99 O2 Delivery: Room Air Ordered Tests: Active Orders 24 hr Category Date Time Status ANKLE (3 VIEWS) Stat Exams 10/30/22 18:36 Taken LOWER LEG Stat Exams 10/30/22 18:40 Taken Medication Summary Discontinued Medications Generic Name Dose Route Start Last Admin Trade Name Freq PRN Reason Stop Dose Admin Ketorolac Tromethamine 30 mg 10/30/22 18:47 10/30/22 18:52 Ketorolac Tromethamine 30 Mg/Ml Inj IM 10/30/22 18:48 30 mg STAT ONE Administration Ketorolac Tromethamine Confirm 10/30/22 18:48 Ketorolac Tromethamine 30 Mg/Ml Inj Administered 10/30/22 18:49 Dose 30 mg .ROUTE .STK-MED ONE - Progress Progress: improved, pain not gone completely, re-examined Progress Note: 10/30/22 19:51 26 years old is evaluated for right lower extremity injury after she missed a step and fell multiple steps. Patient has some swelling of right lateral malleolus. Given Toradol for symptomatic relief. X-rays right ankle and lower leg negative for acute fracture dislocation reviewed by me, official report is pending. She is given crutches for ambulation and weightbearing as tolerated, NSAIDs and outpatient orthopedics follow-up. I believe patient has contusion, discussed signs symptoms of worsening needing return to ER which she seems understanding. Stable for discharge. Medical Desision Making - Discussion of managment Reviewed:: Test results, Need for additional workup Agreed on:: Treatment plan, need for follow-up - Diagnostic Testing Diagnostic test were ordered, analyzed, and reviewed by me: Yes Radiological Interpretation: Interpreted by me, Reviewed by me - Risk of complications Low Risk: Low risk of morbidity from additional dx testing or treatment - Departure Departure Disposition: Home Clinical Impression: Contusion, lower limb, multiple sites Condition: Stable Critical Care Time: No Referrals: AUDREY COPPOLA [Primary Care Provider] - Follow Up with PCP/3 days ORTHO - ARJUN TURNER NP [NON-STAFF PHY W/O PRIVILEGES] - [facility] M-F [id number] Instructions: Ankle Sprain (DC), Contusion (DC) Additional Instructions: Take Tylenol/ibuprofen as needed, weightbearing as tolerated. Follow-up with primary care and Ortho for reevaluation. Return to ER for any worsening. Prescriptions: Ibuprofen 600 mg PO Q6HPRN PRN 10 Days #20 tablet PRN Reason: Pain
[2022-10-30 20:28] VITALS: BP 125/104; PULSE 69; O2SAT 96
--- NOTE | 2022-10-30 22:31 | XRAY ---
Indication: Pain and swelling following fall. Comparison: None 2 view right lower leg obtained. No bony, articular, or soft tissue abnormalities.
--- NOTE | 2022-10-30 22:33 | XRAY ---
Indication: Pain and swelling following fall. Comparison: None 3 view right ankle demonstrates tiny posterior heel spur and mild soft tissue swelling. No other bony, articular, or soft tissue abnormalities.
== END 2022-10-30 20:51 | disposition home or self-care (01) ==
LOC: ED 18:19
DX: S90.01XA Contusion of right ankle, initial encounter (principal); S80.11XA Contusion of right lower leg, initial encounter; W10.9XXA Fall (on) (from) unspecified stairs and steps, initial encounter; Z79.899 Other long term (current) drug therapy; Z28.310 Unvaccinated for COVID-19; Z86.16 Personal history of COVID-19
CPT/HCPCS: 73590; 73610; 96372; 99283; J1885

== ENCOUNTER 2023-11-07 01:16 | Emergency (ER) | payer OTHER ==
[2023-11-07 01:39] LABS: Appearance Clear (Clear); Bacteria Rare /HPF (None Seen); Bilirubin Negative (Negative); Blood Negative (Negative); Epithelial Cells Rare /HPF (None Seen); Glucose, Urine Negative (Negative); Hyaline Casts NONE SEEN /LPF (0-2); Ketones Negative (Negative); Leukocyte Esterase Negative (Negative); Nitrite Negative (Negative); Protein,Urine Dip Negative (Negative); RBC 0-2 /HPF (0-5); Urobilinogen 0.2 mg/dL (0.2)
[2023-11-07 01:40] VITALS: TEMP 97.6
[2023-11-07 01:42] LABS: ADD URINE CULTURE? NO (NO)
[2023-11-07 02:20] VITALS: O2SAT 98
[2023-11-07] MEDS ORDERED: ZOFRAN ODT 4 MG ONE (02:42)
[2023-11-07] MEDS: ZOFRAN ODT 4 MG PO ONE (02:42)
--- NOTE | 2023-11-07 02:48 | ERPHSYRPT ---
- History of Present Illness Time Seen by Provider: 11/07/23 01:40 Source: patient Exam Limitations: no limitations Patient Subjective Stated Complaint: pt states that she has lower abd pain, little spotting, and constipation. Triage Nursing Assessment: pt ambulated into the er; pt is axo x4; c/o abd pain; pt states 8/10 pain to lower abd; abd is round, soft, tender; active bowel sounds; c/o nausea, denies vomiting; last bm 11/02; mucus membranes pink and moist; skin PDW; no respiratory distress present; vitals wnl Physician History: This is an overweight 27-year-old white female patient of Dr. Stoll who is approximately 10 weeks based on ultrasound performed on 10/15/2023. This OB ultrasound showed single intrauterine with cardiac activity. There were no suspicious adnexal masses or free fluid present. Patient states that yesterday and throughout the morning thus far, she has had mild suprapubic cramping and mild intermittent vaginal spotting of blood. She also has a concern of constipation and mild nausea. She is not sure what she can and cannot take if she is . Patient has no chest pain. She has not had fevers. She is not short of breath. She has not been vomiting Timing/Duration: yesterday Activites at Onset: none Quality: cramping (Very mild suprapubic) Onset Location: suprapubic Pain Radiation: none Severity of Pain-Max: mild Severity of Pain-Current: mild Associated Symptoms: abdominal pain (Described as mild suprapubic cramping that has been intermittent), nausea, , vaginal discharge (Only mild, intermittent vaginal spotting), No vomiting Allergies/Adverse Reactions: Penicillins Allergy (Severe, Verified 11/07/23 01:21) Anaphylactic Reaction Home Medications: Vit No.179/Iron/Folic [ Tablet] 1 each PO DAILY 11/07/23 [History] Hx Tetanus, Diphtheria Vaccination/Date Given: No Hx Influenza Vaccination/Date Given: No Hx Pneumococcal Vaccination/Date Given: No Travel Risk - International Travel Have you traveled outside of the country in past 3 weeks: No - Emerging Infectious Disease Are you exhibiting symptoms associated with any current EIDs: No - Review of Systems Constitutional: No Symptoms Eyes: No Symptoms Ears, Nose, & Throat: No Symptoms Respiratory: No Symptoms Cardiac: No Symptoms Abdominal/Gastrointestinal: Abdominal Pain (Mild suprapubic cramping) Genitourinary Symptoms: Vaginal Bleeding (Described as mild, intermittent vaginal spotting) Musculoskeletal: No Symptoms Skin: No Symptoms Neurological: No Symptoms Psychological: No Symptoms Endocrine: No Symptoms Hematologic/Lymphatic: No Symptoms Immunological/Allergic: No Symptoms All Other Systems: Reviewed and Negative - Past Medical History Pertinent Past Medical History: Yes Neurological History: No Pertinent History ENT History: No Pertinent History Cardiac History: No Pertinent History Respiratory History: No Pertinent History Endocrine Medical History: No Pertinent History Musculoskeletal History: No Pertinent History GI Medical History: Gallbladder Disease, Pancreatitis History: No Pertinent History Psycho-Social History: Anxiety, Depression Female Reproductive Disorders: No Pertinent History Other Medical History: lt arm fx, pancreatitis. COVID pneumonia June 2021 - Past Surgical History Past Surgical History: No Neuro Surgical History: No Pertinent History Cardiac: No Pertinent History Respiratory: No Pertinent History Gastrointestinal: No Pertinent History Genitourinary: No Pertinent History Musculoskeletal: No Pertinent History Female Surgical History: No Pertinent History Significant Family History: no pertinent family hx - Female History Hx Now: Yes Gestational Age: 10 weeks - Social History Smoking Status: Never smoker Exposure to second hand smoke: No Alcohol Use: None Drug Use: none Patient Lives Alone: No - Nursing Vital Signs Nursing Vital Signs: Initial Vital Signs Temperature 97.6 F 11/07/23 01:27 Pulse Rate 81 11/07/23 01:27 Respiratory Rate 16 11/07/23 01:27 Blood Pressure 113/78 11/07/23 01:27 O2 Sat by Pulse Oximetry 99 11/07/23 01:27 Pain Scale Pain Intensity 8 - Physical Exam General Appearance: no apparent distress, alert, anxiety, obese Eye Exam: PERRL/EOMI, eyes nml inspection Ears, Nose, Throat Exam: normal ENT inspection, moist mucous membranes Neck Exam: normal inspection, non-tender, supple, full range of motion Respiratory Exam: normal breath sounds, lungs clear, airway intact, No chest tenderness, No respiratory distress Cardiovascular Exam: regular rate/rhythm, normal heart sounds, normal peripheral pulses Gastrointestinal/Abdomen Exam: soft, normal bowel sounds, No tenderness, No guarding, No rebound Pelvic Exam: not done Rectal Exam: not done Back Exam: normal inspection, normal range of motion, No CVA tenderness, No vertebral tenderness Extremity Exam: normal inspection, normal range of motion, pelvis stable Neurologic Exam: alert, oriented x 3, cooperative, pomologist II-XII nml as tested, normal mood/affect, nml cerebellar function, nml station & gait, sensation nml Skin Exam: normal color, warm, dry Lymphatic Exam: No adenopathy SpO2 Interpretation: normal SpO2: 98 O2 Delivery: Room Air - Course Nursing assessment & vital signs reviewed: Yes Ordered Tests: Active Orders 24 hr Category Date Time Status UA W/RFX UR CULTURE Stat Lab 11/07/23 01:30 Completed Medication Summary Generic Name Dose Route Start Last Admin Trade Name Freq PRN Reason Stop Dose Admin Ondansetron HCl 4 mg 11/07/23 02:38 Zofran 4 Mg/Udtablet Orally Disintegrating PO 11/07/23 02:39 STAT ONE Lab/Rad Data: Laboratory Results 11/07/23 Range/Units 01:30 Urine Color Yellow (Yellow) Urine Appearance Clear (Clear) Urine pH 7.0 (4.6-8.0) Ur Specific [place] 1.020 (1.005-1.030) Urine Protein Negative (Negative) Urine Glucose (UA) Negative (Negative) mg/dL Urine Ketones Negative (Negative) Urine Blood Negative (Negative) Urine Nitrite Negative (Negative) Urine Bilirubin Negative (Negative) Urine Urobilinogen 0.2 (0.2) mg/dL Ur Leukocyte Esterase Negative (Negative) U Hyaline Cast (Auto) NONE SEEN (0-2) /LPF Urine Microscopic RBC 0-2 (0-5) /HPF Urine Microscopic WBC 3-5 (0-5) /HPF Ur Epithelial Cells Rare (None Seen) /HPF Urine Bacteria Rare A (None Seen) /HPF Urine Culture Reflexed NO (NO) - Progress Progress: unchanged Air Movement: good Progress Note: 11/07/23 02:44 My medical decision making and the assignment of low complexity of this patient's medical issue today is based on review the patient's past medical hi story, review of outpatient clinic ultrasound results, review of the patient's medication list, review the patient drug allergy list, history present illness and physical findings on examination. The patient's workup includes urinalysis. Differential diagnosis includes dehydration, urinary tract infection, constipation, uterine ligament pain, vaginal spotting during first trimester I spent a good deal of time talking to the patient and listening to her medical complaints as well as finding out what she has attempted to use for relieving her constipation. We reviewed MiraLAX and milk of magnesia. Both of these medications can be used to help relieve constipation during . We also discussed fleets enemas and glycerin suppository use. The patient urinalysis was interpreted by me and there is no evidence of dehydration or infection. I do not feel it is necessary to obtain any other laboratory or radiographic studies. I will remotely send a prescription of Zofran 4 mg ODT to the patient's pharmacy. Blood Culture(s) Obtained: No Antibiotics given: No Counseled pt/family regarding: lab results, diagnosis, need for follow-up Medical Desision Making - Diagnostic Testing Diagnostic test were ordered, analyzed, and reviewed by me: Yes - Risk of complications The pt has a mod risk of morbidity or mortality based on: Need for prescription drug management - Departure Departure Disposition: Home Clinical Impression: Nausea, Constipation Condition: Stable Critical Care Time: No Referrals: AUDREY COPPOLA [Primary Care Provider] - Follow up/PCP as directed Additional Instructions: Drink plenty of fluids. Increase her walking activity. Use MiraLAX and milk of magnesia as discussed and on the instructions of the outpatient packaging to help relieve constipation. Call your primary care provider and/your obstetr ician on 11/08/2023, to make arrangements for follow-up appointment for further evaluation management. Prescriptions: Ondansetron ODT 4 MG [Zofran Odt 4 mg] 4 mg PO Q6H PRN PRN #10 tablet PRN Reason: Vomiting
[2023-11-07 02:53] VITALS: BP 127/55; PULSE 82; RESP 20
== END 2023-11-07 03:00 | disposition home or self-care (01) ==
LOC: ED 01:16
DX: R11.0 Nausea (principal); K59.00 Constipation, unspecified; Z33.1 Pregnant state, incidental
CPT/HCPCS: 81001; 99283; Q0162

== ENCOUNTER 2023-11-28 23:26 | Emergency (ER) | payer OTHER ==
[2023-11-28 23:55] VITALS: TEMP 98.4
--- NOTE | 2023-11-29 00:07 | ERPHSYRPT ---
- History of Present Illness Time Seen by Provider: 11/28/23 23:55 Source: patient, family Exam Limitations: no limitations Physician History: Patient is 13 weeks and slipped and fell on her back and bumped her head - no LOC. Normal neuro exam. neck clears NEXUS criteria. There is minimal lumbar tenderness and no palpable stepoff. is here as independent source for hX. ' Discussed risks/benefits of imaging with pt and spouse and they feel most comf ortable to decline at this time given risk to fetus and current mild physical findings , they are aware that this risks missing a fracture, but clinically a significant fracture seems less likely and the spine function is stable on exam. - they came because they were most concerned on the and FHT are normal ( 163) and no bleeding so that seems well at this time. They have the capacity to make this choice. Timing/Duration: today Method of Injury: fall, slipped Quality: dull Back Pain Location: lumbar spine, coccyx, paraspinous muscles Back Pain Radiation: buttocks Severity of Pain-Max: moderate Severity of Pain-Current: mild Modifying Factors: Improves With: cold therapy, pain medication Associated Symptoms: lower back pain, No urinary incontinence, No loss of bowel control, No problems urinating, No light-headedness, No dizziness, No numbness in legs/feet, No weakness, No sensory/motor loss, No tingling in legs/feet Previous symptoms: no recent treatment Allergies/Adverse Reactions: Penicillins Allergy (Severe, Verified 11/07/23 01:21) Anaphylactic Reaction Home Medications: Vit No.179/Iron/Folic [ Tablet] 1 each PO DAILY 11/07/23 [History] Aspirin EC 81 mg [Ecotrin 81 mg] 81 mg PO DAILY 11/28/23 [History] Hx Tetanus, Diphtheria Vaccination/Date Given: No Hx Influenza Vaccination/Date Given: No Hx Pneumococcal Vaccination/Date Given: No Travel Risk - Emerging Infectious Disease Are you exhibiting symptoms associated with any current EIDs: No - Review of Systems Constitutional: No Fever, No Chills Eyes: No Symptoms Ears, Nose, & Throat: No Symptoms Respiratory: No Cough, No Dyspnea Cardiac: No Chest Pain, No Edema, No Syncope Abdominal/Gastrointestinal: No Abdominal Pain, No Nausea, No Vomiting, No Diarrhea Genitourinary Symptoms: No Dysuria Musculoskeletal: Back Pain, No Neck Pain Skin: No Rash Neurological: No Dizziness, No Focal Weakness, No Sensory Changes Psychological: No Symptoms Endocrine: No Symptoms All Other Systems: Reviewed and Negative - Past Medical History Pertinent Past Medical History: Yes Neurological History: No Pertinent History ENT History: No Pertinent History Cardiac History: No Pertinent History Respiratory History: No Pertinent History Endocrine Medical History: No Pertinent History Musculoskeletal History: No Pertinent History GI Medical History: Gallbladder Disease, Pancreatitis History: No Pertinent History Psycho-Social History: Anxiety, Depression Female Reproductive Disorders: No Pertinent History Other Medical History: lt arm fx x3, pancreatitis. COVID pneumonia June 2021 - Past Surgical History Past Surgical History: No Neuro Surgical History: No Pertinent History Cardiac: No Pertinent History Respiratory: No Pertinent History Gastrointestinal: No Pertinent History Genitourinary: No Pertinent History Musculoskeletal: No Pertinent History Female Surgical History: No Pertinent History Significant Family History: no pertinent family hx - Social History Smoking Status: Never smoker Exposure to second hand smoke: No Alcohol Use: None Drug Use: none Patient Lives Alone: No - Physical Exam General Appearance: no apparent distress, alert Eye Exam: PERRL/EOMI, eyes nml inspection Neck Exam: normal inspection, non-tender, supple, full range of motion, No meningismus, No midline tenderness Respiratory Exam: normal breath sounds, lungs clear, airway intact, No respiratory distress Cardiovascular Exam: regular rate/rhythm, normal heart sounds Gastrointestinal Exam: soft, No tenderness, No distention, No mass, No guarding Pelvic Exam: deferred Rectal Exam: deferred Back Exam: normal inspection, normal range of motion, muscle spasm, other (mild midline tenderness) Extremity Exam: normal inspection, normal range of motion, No calf tenderness, No pedal edema Peripheral Pulses: carotid (R): 2+, carotid (L): 2+, femoral (R): 2+, femoral (L): 2+, dorsalis-pedis (R): 2+, dorsalis-pedis (L): 2+ Neurologic Exam: alert, oriented x 3, cooperative, sound engineer II-XII nml as tested, normal mood/affect, nml station & gait, sensation nml, No motor deficits Skin Exam: normal color, warm, dry, No rash SpO2 Interpretation: normal SpO2: 96 O2 Delivery: Room Air - Course Nursing assessment & vital signs reviewed: Yes - Progress Progress: improved, re-examined Progress Note: 11/29/23 00:23 discussed risks of prescription pain meds and that tylenol was best and that is their current choice. Counseled pt/family regarding: diagnosis, need for follow-up Medical Desision Making - Independent Historian Additional History obtained from: Spouse - Discussion of managment Reviewed:: Test results, Need for additional workup Agreed on:: Treatment plan, need for follow-up - Diagnostic Testing Diagnostic test were ordered, analyzed, and reviewed by me: No - Risk of complications The pt has a mod risk of morbidity or mortality based on: Need for prescription drug management - Departure Departure Disposition: Home Clinical Impression: back trauma / pain, Closed head injury Condition: Good Critical Care Time: No Referrals: AUDREY COPPOLA [Primary Care Provider] - Follow up/PCP as directed Instructions: Low Back Pain (DC), Head injury observation in adults Additional Instructions: ALthough there are no neurologic signs or symptoms from your trauma there still could be an undetected injury including internal so followup with your OB is important to continue monitoring the . Also if symptoms increase or any bleeding or stomach pain , dizziness, numbness or pain shooting down the legs. or any concerns in the head injury precautions.
[2023-11-29 00:23] VITALS: O2SAT 96
[2023-11-29] MEDS: TYLENOL 325 MG PO STA (00:30)
[2023-11-29] MEDS ORDERED: TYLENOL 325 MG ONE (00:30)
[2023-11-29 00:56] VITALS: BP 113/65; PULSE 79; RESP 19
== END 2023-11-29 00:50 | disposition home or self-care (01) ==
LOC: ED 23:26
DX: S39.92XA Unspecified injury of lower back, initial encounter (principal); S09.90XA Unspecified injury of head, initial encounter; W19.XXXA Unspecified fall, initial encounter; Z33.1 Pregnant state, incidental
CPT/HCPCS: 99281; A9270-GY

== ENCOUNTER 2023-12-16 16:01 | Emergency (ER) | payer OTHER ==
[2023-12-16 16:13] VITALS: TEMP 97.2; O2SAT 99
[2023-12-16] MEDS ORDERED: BABY ASPIRIN 81 MG CHEW ONE (16:17)
[2023-12-16] MEDS ORDERED: Pepcid 20 MG VIAL IV ONE (16:18)
[2023-12-16] MEDS: BABY ASPIRIN 81 MG CHEW PO ONE (16:18)
[2023-12-16] MEDS ORDERED: TYLENOL 325 MG ONE (16:19)
[2023-12-16] MEDS ORDERED: MAALOX ES 30 ML UNIT DOSE ONE (16:19)
[2023-12-16] MEDS ORDERED: XYLOCAINE VISCOUS 2% 15 ML CUP ONE (16:19)
[2023-12-16] MEDS: TYLENOL 325 MG PO ONE (16:23)
[2023-12-16] MEDS: Pepcid 20 MG VIAL IV ONE (16:23)
[2023-12-16] MEDS: GI COCKTAIL 45 ML (Maalox/Lidocaine) PO ONE (16:23)
[2023-12-16 16:36] LABS: Absolute Neutrophil Ct (ANC) 6.66 x10^3/uL (1.56-6.13); BASOPHIL % 0.3 % (0.1-1.2); Basophil (Absolute #) 0.03 x10^3/uL (0.01-0.08); Eosinophil % 2.8 % (0.7-5.8); Eosinophil (Absolute #) 0.27 x10^3/uL (0.04-0.36); Hematocrit 37.1 % (34.1-44.9); Hemoglobin 11.9 g/dL (11.2-15.7); IMMATURE GRAN # 0.06 x10^3u/L (0.001-0.031); IMMATURE GRAN % 0.6 % (0.001-0.429); Lymphocyte (Absolute #) 1.78 x10^3/uL (1.18-3.74); Lymphocytes % 18.7 % (19.3-51.7); Mean Cell Volume 82.8 fL (79.4-94.8); Mean Corpuscular Hemoglobin 26.6 pg (25.6-32.2); Mean Corpuscular Hgb Concent. 32.1 g/dL (32.2-35.5); Mean Platelet Volume 10.6 fL (9.4-12.3); Monocytes % 7.4 % (4.7-12.5); Neutrophil % 70.2 % (34.0-71.1); Platelet Count 219 x10^3/uL (182-369); Red Blood Count 4.48 x10^6/uL (3.93-5.22); Red Cell Distribution Width 13.5 % (11.7-14.4); White Blood Count 9.5 x10^3/uL (3.98-10.04)
[2023-12-16] MEDS ORDERED: Pepcid 20 MG ONE (16:48)
[2023-12-16] MEDS: Pepcid 20 MG PO ONE (16:49)
[2023-12-16 17:03] VITALS: BP 152/94
[2023-12-16 17:07] LABS: HCG SERUM TEST POSITIVE (NEGATIVE)
--- NOTE | 2023-12-16 17:17 | XRAY ---
Indication: Chest pain. Comparison: June 21, 2021 Portable chest inflated and is now clear. Heart and mediastinal structures within normal limits. Bony thorax intact. Impression: Nonacute chest.
[2023-12-16 17:22] LABS: ALBUMIN 4.4 g/dL (3.5-5.0); ALKALINE PHOSPHATASE 64 U/L (38-126); ANION GAP 14.7 MEQ/L (5-15); BLOOD UREA NITROGEN 7 mg/dL (7-17); CHLORIDE 107 mmol/L (98-107); Calcium 9.3 mg/dL (8.4-10.2); Carbon Dioxide 20 mmol/L (22-30); Creatinine 1 0.47 mg/dL (0.52-1.04); EST GLOMERULAR FILTRATION RATE 132.9 ML/MIN; Glucose 90 mg/dL (74-106); NT PRO BNPII 46.5 pg/mL (<300); Potassium 3.4 mmol/L (3.5-5.1); SGOT/AST 24 U/L (14-36); SGPT/ALT 28 U/L (0-35); SODIUM 138 mmol/L (135-145); TROPONIN < 0.012 ng/mL (0.000-0.033); Total Protein 7.8 g/dL (6.3-8.2)
--- NOTE | 2023-12-16 17:49 | ERPHSYRPT ---
- History of Present Illness Time Seen by Provider: 12/16/23 16:05 Historian: patient, family Exam Limitations: no limitations Patient Subjective Stated Complaint: Pt states "I was folding clothes and I started to have chest pain this morning." Triage Nursing Assessment: PT presented alert and oriented X 3, skin pwd. Pt ambulates with an upright steady gait, pt resting comfortably on the bed. Physician History: 28 years old 3 para 2 at 16 weeks gestation presented in the ER with complaint of substernal chest discomfort. Patient reports burning sensation, nonradiating started this morning. Patient denies any difficulty breathing or palpitation. No vaginal bleeding discharge or cramping reported. Patient has been taking aspirin for preeclampsia 81 mg daily. Patient denies any fever chills or cough. No history of coronary artery disease or acid reflux. Aspirin Treatment Today: no aspirin today Allergies/Adverse Reactions: Penicillins Allergy (Severe, Verified 11/07/23 01:21) Anaphylactic Reaction Home Medications: Vit No.179/Iron/Folic [ Tablet] 1 each PO DAILY 11/07/23 [History] Aspirin EC 81 mg [Ecotrin 81 mg] 81 mg PO DAILY 11/28/23 [History] Hx Tetanus, Diphtheria Vaccination/Date Given: No Hx Influenza Vaccination/Date Given: No Hx Pneumococcal Vaccination/Date Given: No Immunizations Up to Date: No Travel Risk - International Travel Have you traveled outside of the country in past 3 weeks: No - Emerging Infectious Disease Are you exhibiting symptoms associated with any current EIDs: No - Review of Systems Constitutional: No Symptoms Eyes: No Symptoms Ears, Nose, & Throat: No Symptoms Respiratory: No Symptoms Cardiac: Chest Pain Abdominal/Gastrointestinal: No Symptoms Genitourinary Symptoms: Musculoskeletal: No Symptoms Skin: No Symptoms Neurological: No Symptoms Psychological: Anxiety Endocrine: No Symptoms Hematologic/Lymphatic: No Symptoms Immunological/Allergic: No Symptoms - Past Medical History Pertinent Past Medical History: Yes Neurological History: No Pertinent History ENT History: No Pertinent History Cardiac History: No Pertinent History Respiratory History: No Pertinent History Endocrine Medical History: No Pertinent History Musculoskeletal History: No Pertinent History GI Medical History: Gallbladder Disease, Pancreatitis History: No Pertinent History Psycho-Social History: Anxiety, Depression Female Reproductive Disorders: No Pertinent History Other Medical History: lt arm fx x3, pancreatitis. COVID pneumonia June 2021 - Past Surgical History Past Surgical History: No Neuro Surgical History: No Pertinent History Cardiac: No Pertinent History Respiratory: No Pertinent History Gastrointestinal: No Pertinent History Genitourinary: No Pertinent History Musculoskeletal: No Pertinent History Female Surgical History: No Pertinent History Significant Family History: no pertinent family hx - Female History Hx Last Menstrual Period: 06/04/2023 Hx Now: (unkn) Gestational Age: 16 weeks - Social History Smoking Status: Former smoker Exposure to second hand smoke: No Alcohol Use: None Drug Use: none Patient Lives Alone: No - Social Determinants of Health Will the patient participate in the screening: Yes Do you worry about a steady place to live?: No Do you have any problems with any of the following?: No known problems In the past 12 months,have you had to go without utilities?: No Transportation Issues: No Has anyone in your support network made you feel unsafe?: No Have you or anyone in your house had to go without enough: No - Nursing Vital Signs Nursing Vital Signs: Initial Vital Signs Temperature 97.2 F 12/16/23 16:02 Pulse Rate 102 H 12/16/23 16:02 Respiratory Rate 20 12/16/23 16:02 Blood Pressure 105/67 12/16/23 16:02 O2 Sat by Pulse Oximetry 99 12/16/23 16:02 Pain Scale Pain Intensity 8 - Physical Exam General Appearance: no apparent distress, alert, anxiety Eye Exam: PERRL/EOMI, eyes nml inspection Ears, Nose, Throat Exam: normal ENT inspection, TMs normal Neck Exam: normal inspection, non-tender, supple, full range of motion Respiratory Exam: normal breath sounds, lungs clear Cardiovascular Exam: regular rate/rhythm, normal heart sounds Gastrointestinal/Abdomen Exam: soft, normal bowel sounds, No tenderness Back Exam: normal inspection, normal range of motion Extremity Exam: normal inspection, normal range of motion, pelvis stable Neurologic Exam: alert, oriented x 3, cooperative Skin Exam: normal color SpO2 Interpretation: normal SpO2: 99 O2 Delivery: Room Air - Course EKG Interpreted by Me: RATE (78), Sinus Rhythm, NORMAL AXIS, NORMAL INTERVALS, NORMAL QRS Ordered Tests: Active Orders 24 hr Category Date Time Status Money Order Clerk STAT Care 12/16/23 16:05 Active EKG-ER Only STAT Care 12/16/23 16:05 Active IV Insertion STAT Care 12/16/23 16:05 Active Pulse Oximetry (ED) STAT Care 12/16/23 16:05 Active CHEST 1 VIEW (PORTABLE) Stat Exams 12/16/23 16:05 Completed CBC W DIFF Stat Lab 12/16/23 16:30 Completed CMP Stat Lab 12/16/23 17:00 Completed HCG QUALITATIVE, SERUM Stat Lab 12/16/23 Completed NT PRO BNPII Stat Lab 12/16/23 17:00 Completed TROPONIN Q4H Lab 12/16/23 20:15 Ordered TROPONIN Q4H Lab 12/17/23 00:15 Ordered TROPONIN Stat Lab 12/16/23 17:00 Completed Medication Summary Discontinued Medications Generic Name Dose Route Start Last Admin Trade Name Edvinq PRN Reason Stop Dose Admin Acetaminophen 975 mg 12/16/23 16:15 12/16/23 16:23 Acetaminophen 325 Mg Tablet PO 12/16/23 16:16 975 mg STAT ONE Administration Acetaminophen Confirm 12/16/23 16:19 Acetaminophen 325 Mg Tablet Administered 12/16/23 16:20 Dose 975 mg .ROUTE .STK-MED ONE Al Hydrox/Mg Hydrox/Simethicone Confirm 12/16/23 16:19 Mag Hydrox/Al Hydrox/Simeth 30 Ml Udcup Administered 12/16/23 16:20 Dose 30 ml .ROUTE .STK-MED ONE Aspirin 324 mg 12/16/23 16:05 12/16/23 16:18 Aspirin 81 Mg Tab.Chew PO 12/16/23 16:06 Not Given STAT ONE Aspirin Confirm 12/16/23 16:17 Aspirin 81 Mg Tab.Chew Administered 12/16/23 16:18 Dose 324 mg .ROUTE .STK-MED ONE Famotidine 20 mg 12/16/23 16:15 12/16/23 16:23 Famotidine 20 Mg/1 Vial IV 12/16/23 16:16 20 mg STAT ONE Administration Famotidine Confirm 12/16/23 16:18 Famotidine 20 Mg/1 Vial Administered 12/16/23 16:19 Dose 20 mg IV .STK-MED ONE Famotidine 40 mg 12/16/23 16:48 12/16/23 16:49 Famotidine 20 Mg Tablet PO 12/16/23 16:49 40 mg STAT ONE Administration Famotidine Confirm 12/16/23 16:48 Famotidine 20 Mg Tablet Administered 12/16/23 16:49 Dose 40 mg .ROUTE .STK-MED ONE Lidocaine HCl Confirm 12/16/23 16:19 Lidocaine Hcl 2% Viscous 15 Ml Udcup Administered 12/16/23 16:20 Dose 15 ml .ROUTE .STK-MED ONE Magnesium Hydroxide 45 ml 12/16/23 16:15 12/16/23 16:23 Mag Hydrx/Alum Hyd/Simeth/Lido 45 Ml Bottle PO 12/16/23 16:16 45 ml STAT ONE Administration Lab/Rad Data: Laboratory Result Diagrams 12/16/23 16:30 12/16/23 17:00 Laboratory Results 12/16/23 12/16/23 12/16/23 Range/Units Unknown 17:00 16:30 WBC 9.5 (3.98-10.04) x10^3/uL RBC 4.48 (3.93-5.22) x10^6/uL Hgb 11.9 (11.2-15.7) g/dL Hct 37.1 (34.1-44.9) % MCV 82.8 (79.4-94.8) fL MCH 26.6 (25.6-32.2) pg MCHC 32.1 L (32.2-35.5) g/dL RDW 13.5 (11.7-14.4) % Plt Count 219 (182-369) x10^3/uL MPV 10.6 (9.4-12.3) fL Gran % 70.2 (34.0-71.1) % Immature Gran % (Auto) 0.6 H (0.001-0.429) % Nucleat RBC Rel Count 0.0 (0.00-0.2) % Eos # (Auto) 0.27 (0.04-0.36) x10^3/uL Immature Gran # (Auto) 0.06 H (0.001-0.031) x10^3u/L Absolute Lymphs (auto) 1.78 (1.18-3.74) x10^3/uL Absolute Monos (auto) 0.70 (0.24-0.86) x10^3/uL Absolute Nucleated RBC 0.00 (0.00-0.012) x10^3u/L Lymphocytes % 18.7 L (19.3-51.7) % Monocytes % 7.4 (4.7-12.5) % Eosinophils % 2.8 (0.7-5.8) % Basophils % 0.3 (0.1-1.2) % Absolute Granulocytes 6.66 H (1.56-6.13) x10^3/uL Basophils # 0.03 (0.01-0.08) x10^3/uL Sodium 138 (135-145) mmol/L Potassium 3.4 L (3.5-5.1) mmol/L Chloride 107 (98-107) mmol/L Carbon Dioxide 20 L (22-30) mmol/L Anion Gap 14.7 (5-15) MEQ/L BUN 7 (7-17) mg/dL Creatinine 0.47 L (0.52-1.04) mg/dL Estimated GFR 132.9 ML/MIN Glucose 90 (74-106) mg/dL Calcium 9.3 (8.4-10.2) mg/dL Total Bilirubin 0.30 (0.2-1.3) mg/dL AST 24 (14-36) U/L ALT 28 (0-35) U/L Alkaline Phosphatase 64 (38-126) U/L Troponin I < 0.012 (0.000-0.033) ng/mL NT-Pro-B Natriuret Pep 46.5 (<300) pg/mL Serum Total Protein 7.8 (6.3-8.2) g/dL Albumin 4.4 (3.5-5.0) g/dL Serum HCG, Qual POSITIVE (NEGATIVE) - Progress Progress: improved, re-examined Air Movement: good Progress Note: 12/16/23 17:46 28-year-old 16 weeks gestation with previous preeclampsia on aspirin is evaluated for substernal chest pain since morning. Patient EKG is normal sinus rhythm with no acute ischemic changes. She is given Tylenol, GI cocktail and Pepcid, on reevaluation is she is pain-free. Chest x-ray negative for any acute cardiopulmonary findings. Normal white count, fairly unremarkable chemistries. heart tone and 150s, no cramping or vaginal bleeding. I believe patient has GERD with esophagitis and I will start her on Pepcid. Recommended taking Tums as needed as well. During the interview patient was in tears, she is very anxious. She is thoroughly counseled. Do not think patient needs any other workup and is stable for discharge. Recommended outpatient follow-up with primary care. Discussed signs and symptoms of worsening needing return to ER which she seems understanding. Blood Culture(s) Obtained: No Antibiotics given: No Counseled pt/family regarding: lab results, diagnosis, need for follow-up, rad results Medical Desision Making - Independent Historian Additional History obtained from: Spouse - Diagnostic Testing Diagnostic test were ordered, analyzed, and reviewed by me: Yes Radiological Interpretation: Interpreted by me, Reviewed by me - Risk of complications The pt has a mod risk of morbidity or mortality based on: Need for prescription drug management - Departure Departure Disposition: Home Clinical Impression: GERD with esophagitis, Condition: Stable Critical Care Time: No Referrals: AUDREY COPPOLA [Primary Care Provider] - Follow up with PCP 1 day Instructions: Acid reflux and GERD during Additional Instructions: Take Tylenol/Tums as needed. Follow-up with primary care for reevaluation. Return to ER for worsening chest pain or if having palpitations/difficulty breathing etc., Vaginal bleeding, pelvic cramping Prescriptions: Famotidine 20 mg [Pepcid 20 MG] 20 mg PO BID 30 Days #60 tablet
[2023-12-16 17:56] VITALS: PULSE 148; RESP 25
== END 2023-12-16 17:59 | disposition home or self-care (01) ==
LOC: ED 16:01
DX: K21.00 Gastro-esophageal reflux disease with esophagitis, without bleeding (principal); R07.9 Chest pain, unspecified; Z33.1 Pregnant state, incidental
CPT/HCPCS: 36415; 71045; 80053; 83880; 84484; 84703; 85025; 93005; 93041; 94760; 96374; 99284; A9270-GY

== ENCOUNTER 2024-05-01 14:44 | Observation (INO) | payer OTHER ==
[2024-05-01 15:46] VITALS: BP 110/56; PULSE 96; RESP 14; TEMP 98.2; O2SAT 98
[2024-05-01 15:58] LABS: Absolute Neutrophil Ct (ANC) 8.66 x10^3/uL (1.56-6.13); BASOPHIL % 0.3 % (0.1-1.2); Basophil (Absolute #) 0.03 x10^3/uL (0.01-0.08); Eosinophil % 2.2 % (0.7-5.8); Eosinophil (Absolute #) 0.25 x10^3/uL (0.04-0.36); Hematocrit 34.5 % (34.1-44.9); Hemoglobin 11.2 g/dL (11.2-15.7); IMMATURE GRAN % 1.8 % (0.001-0.429); Lymphocyte (Absolute #) 1.71 x10^3/uL (1.18-3.74); Mean Corpuscular Hemoglobin 26.3 pg (25.6-32.2); Mean Corpuscular Hgb Concent. 32.5 g/dL (32.2-35.5); Mean Platelet Volume 9.9 fL (9.4-12.3); Monocyte (Absolute #) 0.55 x10^3/uL (0.24-0.86); Monocytes % 4.8 % (4.7-12.5); Neutrophil % 75.9 % (34.0-71.1); Platelet Count 241 x10^3/uL (182-369); Red Blood Count 4.26 x10^6/uL (3.93-5.22); Red Cell Distribution Width 13.3 % (11.7-14.4); White Blood Count 11.4 x10^3/uL (3.98-10.04)
[2024-05-01 16:13] LABS: ALBUMIN 3.6 g/dL (3.5-5.0); ANION GAP 13.1 MEQ/L (5-15); BILIRUBIN,TOTAL 0.1 mg/dL (0.2-1.3); Calcium 8.8 mg/dL (8.4-10.2); Creatinine 1 0.52 mg/dL (0.52-1.04); EST GLOMERULAR FILTRATION RATE 129.7 ML/MIN; Potassium 3.9 mmol/L (3.5-5.1); Total Protein 6.7 g/dL (6.3-8.2); Uric Acid 3.8 mg/dL (2.6-6.0)
[2024-05-01 16:15] LABS: TP, Urine Random < 5.0 mg/dl (<12)
[2024-05-01 16:16] LABS: Appearance Clear (Clear); Bacteria Few /HPF (None Seen); Bilirubin Negative (Negative); Blood Negative (Negative); Epithelial Cells None Seen /HPF (None Seen); Glucose, Urine Negative (Negative); Hyaline Casts NONE SEEN /LPF (0-2); Ketones Negative (Negative); Leukocyte Esterase Small (Negative); Nitrite Negative (Negative); Protein,Urine Dip Negative (Negative); RBC 0-2 /HPF (0-5); Specific Gravity 1.015 (1.005-1.030); Urobilinogen 0.2 mg/dL (0.2)
[2024-05-01] MEDS: Lactated Ringers 1,000 ML IV ONE (16:35)
[2024-05-01] MEDS: TYLENOL EXTRA STRENGTH 500 MG PO PRN (17:29)
== END 2024-05-01 18:40 | disposition home or self-care (01) ==
LOC: OB.NST 14:44 → OB 16:34
PROVIDERS: ADMIT Obstetrics & Gynecology; ATTEND Obstetrics & Gynecology
DX: O24.419 Gestational diabetes mellitus in pregnancy, unspecified control (principal); Z3A.35 35 weeks gestation of pregnancy
CPT/HCPCS: 36415; 59025; 80053; 81001; 82570; 84156; 84550; 85025; 87086; 99213; A9270-GY

== ENCOUNTER 2024-05-12 12:54 | Observation (INO) | payer OTHER ==
[2024-05-12 13:33] VITALS: BP 119/72; PULSE 106; RESP 20; TEMP 98.4
[2024-05-12 13:44] LABS: Appearance Cloudy (Clear); Bacteria Few /HPF (None Seen); Bilirubin Negative (Negative); Blood Negative (Negative); Epithelial Cells Few /HPF (None Seen); Glucose, Urine Negative (Negative); Hyaline Casts None Seen /LPF (0-2); Ketones Negative (Negative); Leukocyte Esterase Moderate (Negative); Nitrite Negative (Negative); Protein,Urine Dip Negative (Negative); RBC 0-2 /HPF (0-5); Urobilinogen 0.2 mg/dL (0.2)
[2024-05-12 13:46] LABS: Amphetamine,Urine NEGATIVE (NEGATIVE); Barbiturate,Urine NEGATIVE (NEGATIVE); Benzodiazepine,Urine NEGATIVE (NEGATIVE); Cocaine,Urine NEGATIVE (NEGATIVE); Methadone,Urine NEGATIVE (NEGATIVE); Opiate,Urine NEGATIVE (NEGATIVE); PCP,Urine NEGATIVE (NEGATIVE); THC,Urine NEGATIVE (NEGATIVE)
== END 2024-05-12 13:56 | disposition home or self-care (01) ==
LOC: OB 12:54
PROVIDERS: ADMIT Obstetrics & Gynecology; ATTEND Obstetrics & Gynecology
DX: Z34.83 Encounter for supervision of other normal pregnancy, third trimester (principal); Z3A.37 37 weeks gestation of pregnancy
CPT/HCPCS: 80307; 81001; 87086; G0378; G0379

== ENCOUNTER 2024-05-22 05:18 | Inpatient (IN) | payer OTHER ==
[2024-05-22] MEDS ORDERED: Ephedrine Sulfate 50 MG/ML IV PRN (05:24)
[2024-05-22] MEDS ORDERED: Nubain 10 MG/ML IV PRN (05:24)
[2024-05-22] MEDS ORDERED: STADOL 2 MG IV PRN (05:24)
[2024-05-22] MEDS ORDERED: Zofran 4 MG/2 ML VIAL IV PRN (05:24)
[2024-05-22] MEDS ORDERED: XYLOCAINE 1% HCL 20 ML MDV IJ PRN (05:24)
[2024-05-22] MEDS ORDERED: Lactated Ringers 1,000 ML IV ONE (05:53)
[2024-05-22 06:14] LABS: Absolute Neutrophil Ct (ANC) 9.22 x10^3/uL (1.56-6.13); BASOPHIL % 0.4 % (0.1-1.2); Basophil (Absolute #) 0.05 x10^3/uL (0.01-0.08); Eosinophil % 1.8 % (0.7-5.8); Eosinophil (Absolute #) 0.23 x10^3/uL (0.04-0.36); Hematocrit 33.4 % (34.1-44.9); Hemoglobin 10.8 g/dL (11.2-15.7); IMMATURE GRAN # 0.25 x10^3u/L (0.001-0.031); Lymphocyte (Absolute #) 2.22 x10^3/uL (1.18-3.74); Lymphocytes % 17.6 % (19.3-51.7); Mean Cell Volume 80.7 fL (79.4-94.8); Mean Corpuscular Hemoglobin 26.1 pg (25.6-32.2); Mean Corpuscular Hgb Concent. 32.3 g/dL (32.2-35.5); Mean Platelet Volume 10.9 fL (9.4-12.3); Monocyte (Absolute #) 0.66 x10^3/uL (0.24-0.86); Monocytes % 5.2 % (4.7-12.5); Platelet Count 217 x10^3/uL (182-369); Red Blood Count 4.14 x10^6/uL (3.93-5.22); Red Cell Distribution Width 13.3 % (11.7-14.4); White Blood Count 12.6 x10^3/uL (3.98-10.04)
[2024-05-22] MEDS: PITOCIN 30 UNITS/ LR 500 ML 30 UNITS/500 ML PLAST..BAG IV SCH ×2 (06:15→21:26)
[2024-05-22] MEDS: Lactated Ringers 1,000 ML IV SCH (06:15)
[2024-05-22 06:34] LABS: Slide Review 1 YES
[2024-05-22 06:47] LABS: Amphetamine,Urine NEGATIVE (NEGATIVE); Barbiturate,Urine NEGATIVE (NEGATIVE); Benzodiazepine,Urine NEGATIVE (NEGATIVE); Cocaine,Urine NEGATIVE (NEGATIVE); Methadone,Urine NEGATIVE (NEGATIVE); Opiate,Urine NEGATIVE (NEGATIVE); PCP,Urine NEGATIVE (NEGATIVE); THC,Urine NEGATIVE (NEGATIVE)
[2024-05-22 06:50] LABS: ABO TYPING O; Antibody Screen NEGATIVE (NEGATIVE); RH TYPING POSITIVE
[2024-05-22] MEDS ORDERED: FENTANYL 2 MCG-BUPIV 0.125%-NS 250 ML Epidur 250 ML EPIDURAL ONE (07:08)
[2024-05-22] MEDS: Lactated Ringers 1,000 ML IV ONE (07:10)
[2024-05-22] MEDS: FENTANYL 2 MCG-BUPIV 0.125%-NS 250 ML Epidur 250 ML EPIDURAL SCH (07:10)
[2024-05-22 09:09] LABS: Appearance Clear (Clear); Bacteria None Seen /HPF (None Seen); Bilirubin Negative (Negative); Blood Negative (Negative); Epithelial Cells None Seen /HPF (None Seen); Glucose, Urine Negative (Negative); Hyaline Casts NONE SEEN /LPF (0-2); Ketones Negative (Negative); Leukocyte Esterase Negative (Negative); Nitrite Negative (Negative); Ph 6.5 (4.6-8.0); Protein,Urine Dip Negative (Negative); RBC 0-2 /HPF (0-5); Specific Gravity 1.025 (1.005-1.030); Urobilinogen 0.2 mg/dL (0.2)
[2024-05-22] MEDS ORDERED: MOTRIN 400 MG ONE (20:36)
[2024-05-22] MEDS ORDERED: TUCKS TP PRN (20:47)
[2024-05-22] MEDS ORDERED: TYLENOL EXTRA STRENGTH 500 MG PO PRN (20:47)
[2024-05-22] MEDS ORDERED: Dermoplast Spray TP PRN (20:47)
[2024-05-22] MEDS ORDERED: Dulcolax 10 MG SUPP PR PRN (20:47)
[2024-05-22] MEDS: MOTRIN 400 MG PO PRN (21:41)
[2024-05-23] MEDS: Docusate Sodium 100 MG PO SCH (02:51)
[2024-05-23] MEDS: TYLENOL EXTRA STRENGTH 500 MG PO PRN (04:37)
[2024-05-23 04:49] LABS: Absolute Neutrophil Ct (ANC) 10.24 x10^3/uL (1.56-6.13); BASOPHIL % 0.2 % (0.1-1.2); Basophil (Absolute #) 0.03 x10^3/uL (0.01-0.08); Eosinophil % 1.5 % (0.7-5.8); Hemoglobin 11.2 g/dL (11.2-15.7); IMMATURE GRAN # 0.13 x10^3u/L (0.001-0.031); Lymphocyte (Absolute #) 1.78 x10^3/uL (1.18-3.74); Lymphocytes % 13.6 % (19.3-51.7); Mean Cell Volume 79.1 fL (79.4-94.8); Mean Corpuscular Hgb Concent. 32.9 g/dL (32.2-35.5); Mean Platelet Volume 10.5 fL (9.4-12.3); Monocyte (Absolute #) 0.75 x10^3/uL (0.24-0.86); Monocytes % 5.7 % (4.7-12.5); Platelet Count 204 x10^3/uL (182-369); Red Cell Distribution Width 13.7 % (11.7-14.4); White Blood Count 13.1 x10^3/uL (3.98-10.04)
--- NOTE | 2024-05-23 07:58 | PCM.NOTE ---
Date and Time: 05/23/24 0756 Subjective Assessment: ppd 1 sp pt resting in bed and doing well able to ambulate and tolerate diet vss afebrile abd;soft uterus; firm lochia; mild hgb; 11 a/p sp ppd 1 dc home tomorrow should fu in office in 3 wks Objective Data Vital Signs: Vital Signs - 24 hr Temp Pulse Resp BP BP Pulse Ox 05/23/24 03:00 98.1 F 72 18 116/72 98 05/22/24 21:35 133/71 122 H 05/22/24 21:20 111 H 147/65 05/22/24 21:00 96 H 123/58 05/22/24 20:50 90 154/86 05/22/24 20:35 93 H 137/82 100 05/22/24 20:00 98.2 F 120 H 18 126/75 99 05/22/24 19:30 97.9 F 73 20 147/73 100 05/22/24 19:15 97.9 F 80 20 123/68 99 05/22/24 19:00 97.9 F 82 20 124/66 99 05/22/24 18:45 97.9 F 85 20 125/68 99 05/22/24 18:30 98.1 F 72 20 116/56 99 05/22/24 18:15 98.1 F 69 20 99 05/22/24 18:00 98.1 F 69 20 135/65 99 05/22/24 17:45 98.1 F 69 20 135/65 99 05/22/24 17:30 98.1 F 101 H 20 130/82 99 05/22/24 17:15 98.1 F 74 20 130/82 99 05/22/24 17:00 98.1 F 78 20 127/68 99 05/22/24 16:45 98.1 F 81 20 138/74 100 05/22/24 16:30 98.1 F 71 20 123/71 97 05/22/24 16:15 98.1 F 70 20 128/78 97 05/22/24 16:00 98.2 F 78 20 131/56 100 05/22/24 15:45 98.2 F 64 20 131/81 100 05/22/24 15:30 98.2 F 80 20 132/73 100 05/22/24 15:15 98.2 F 73 20 112/61 98 05/22/24 15:00 98.2 F 81 20 139/71 98 05/22/24 14:45 98.2 F 76 20 131/76 98 05/22/24 14:30 98.2 F 76 20 133/77 98 05/22/24 14:15 98.2 F 76 20 128/77 98 05/22/24 14:00 98.2 F 73 20 138/73 129/96 98 05/22/24 13:45 98.1 F 73 20 129/96 98 05/22/24 13:30 98.1 F 65 20 134/82 98 05/22/24 13:15 98.1 F 63 20 132/83 100 05/22/24 13:00 98.1 F 73 20 114/59 100 05/22/24 12:45 98.1 F 67 20 121/62 100 05/22/24 12:30 98.1 F 72 20 122/60 100 05/22/24 12:15 98.1 F 71 20 123/62 100 05/22/24 12:00 98.1 F 75 20 127/60 100 05/22/24 11:45 98.1 F 64 20 126/74 100 05/22/24 11:30 98.0 F 67 20 118/80 99 05/22/24 11:15 98.0 F 74 20 131/71 100 05/22/24 11:00 98.0 F 72 20 125/77 100 05/22/24 10:45 98.0 F 67 20 125/77 100 05/22/24 10:30 98.0 F 75 20 129/78 100 05/22/24 10:15 98.0 F 77 20 132/83 100 05/22/24 10:00 98.0 F 91 H 20 135/88 100 05/22/24 09:45 98.0 F 73 20 126/64 99 05/22/24 09:30 98.0 F 73 20 126/64 99 05/22/24 09:15 98.0 F 72 20 122/68 99 05/22/24 09:00 98.0 F 68 20 118/72 99 05/22/24 08:45 98.0 F 76 20 127/73 100 05/22/24 08:30 98.0 F 71 20 117/68 100 05/22/24 08:15 98.0 F 71 20 116/71 100 05/22/24 08:00 98.0 F 76 20 132/80 138/84 100 Pain Assessment - Last Documented Pain Intensity [Lower] 0 Pain Intensity 0 Pain Scale Used Mceknzie-Kumar Faces Intake and Output: Intake & Output 05/20/24 05/21/24 05/22/24 05/23/24 11:59 11:59 11:59 11:59 Intake Total 1000 220 Output Total 800 Balance 1000 -580 Weight 122.924 kg Lab Results: Lab Results-Last 24 Hours 05/22/24 05/22/24 05/22/24 Range/Units 08:07 09:04 09:56 WBC (3.98-10.04) x10^3/uL RBC (3.93-5.22) x10^6/uL Hgb (11.2-15.7) g/dL Hct (34.1-44.9) % MCV (79.4-94.8) fL MCH (25.6-32.2) pg MCHC (32.2-35.5) g/dL RDW (11.7-14.4) % Plt Count (182-369) x10^3/uL MPV (9.4-12.3) fL Gran % (34.0-71.1) % Immature Gran % (Auto) (0.001-0.429) % Nucleat RBC Rel Count (0.00-0.2) % Eos # (Auto) (0.04-0.36) x10^3/uL Immature Gran # (Auto) (0.001-0.031) x10^3u/L Absolute Lymphs (auto) (1.18-3.74) x10^3/uL Absolute Monos (auto) (0.24-0.86) x10^3/uL Absolute Nucleated RBC (0.00-0.012) x10^3u/L Lymphocytes % (19.3-51.7) % Monocytes % (4.7-12.5) % Eosinophils % (0.7-5.8) % Basophils % (0.1-1.2) % Absolute Granulocytes (1.56-6.13) x10^3/uL Basophils # (0.01-0.08) x10^3/uL POC Glucometer 89 76 (74 to 106) mg/dL Urine Color Yellow (Yellow) Urine Appearance Clear (Clear) Urine pH 6.5 (4.6-8.0) Ur Specific [place] 1.025 (1.005-1.030) Urine Protein Negative (Negative) Urine Glucose (UA) Negative (Negative) mg/dL Urine Ketones Negative (Negative) Urine Blood Negative (Negative) Urine Nitrite Negative (Negative) Urine Bilirubin Negative (Negative) Urine Urobilinogen 0.2 (0.2) mg/dL Ur Leukocyte Esterase Negative (Negative) U Hyaline Cast (Auto) NONE SEEN (0-2) /LPF Urine Microscopic RBC 0-2 (0-5) /HPF Urine Microscopic WBC 3-5 (0-5) /HPF Ur Epithelial Cells None Seen (None Seen) /HPF Urine Bacteria None Seen (None Seen) /HPF Urine Culture Reflexed NO (NO) 05/22/24 05/22/24 05/22/24 Range/Units 12:05 14:05 16:08 WBC (3.98-10.04) x10^3/uL RBC (3.93-5.22) x10^6/uL Hgb (11.2-15.7) g/dL Hct (34.1-44.9) % MCV (79.4-94.8) fL MCH (25.6-32.2) pg MCHC (32.2-35.5) g/dL RDW (11.7-14.4) % Plt Count (182-369) x10^3/uL MPV (9.4-12.3) fL Gran % (34.0-71.1) % Immature Gran % (Auto) (0.001-0.429) % Nucleat RBC Rel Count (0.00-0.2) % Eos # (Auto) (0.04-0.36) x10^3/uL Immature Gran # (Auto) (0.001-0.031) x10^3u/L Absolute Lymphs (auto) (1.18-3.74) x10^3/uL Absolute Monos (auto) (0.24-0.86) x10^3/uL Absolute Nucleated RBC (0.00-0.012) x10^3u/L Lymphocytes % (19.3-51.7) % Monocytes % (4.7-12.5) % Eosinophils % (0.7-5.8) % Basophils % (0.1-1.2) % Absolute Granulocytes (1.56-6.13) x10^3/uL Basophils # (0.01-0.08) x10^3/uL POC Glucometer 68 L 62 L 67 L (74 to 106) mg/dL Urine Color (Yellow) Urine Appearance (Clear) Urine pH (4.6-8.0) Ur Specific [place] (1.005-1.030) Urine Protein (Negative) Urine Glucose (UA) (Negative) mg/dL Urine Ketones (Negative) Urine Blood (Negative) Urine Nitrite (Negative) Urine Bilirubin (Negative) Urine Urobilinogen (0.2) mg/dL Ur Leukocyte Esterase (Negative) U Hyaline Cast (Auto) (0-2) /LPF Urine Microscopic RBC (0-5) /HPF Urine Microscopic WBC (0-5) /HPF Ur Epithelial Cells (None Seen) /HPF Urine Bacteria (None Seen) /HPF Urine Culture Reflexed (NO) 05/22/24 05/23/24 05/23/24 Range/Units 22:12 02:10 04:40 WBC 13.1 H (3.98-10.04) x10^3/uL RBC 4.30 (3.93-5.22) x10^6/uL Hgb 11.2 (11.2-15.7) g/dL Hct 34.0 L (34.1-44.9) % MCV 79.1 L (79.4-94.8) fL MCH 26.0 (25.6-32.2) pg MCHC 32.9 (32.2-35.5) g/dL RDW 13.7 (11.7-14.4) % Plt Count 204 (182-369) x10^3/uL MPV 10.5 (9.4-12.3) fL Gran % 78.0 H (34.0-71.1) % Immature Gran % (Auto) 1.0 H (0.001-0.429) % Nucleat RBC Rel Count 0.0 (0.00-0.2) % Eos # (Auto) 0.20 (0.04-0.36) x10^3/uL Immature Gran # (Auto) 0.13 H (0.001-0.031) x10^3u/L Absolute Lymphs (auto) 1.78 (1.18-3.74) x10^3/uL Absolute Monos (auto) 0.75 (0.24-0.86) x10^3/uL Absolute Nucleated RBC 0.00 (0.00-0.012) x10^3u/L Lymphocytes % 13.6 L (19.3-51.7) % Monocytes % 5.7 (4.7-12.5) % Eosinophils % 1.5 (0.7-5.8) % Basophils % 0.2 (0.1-1.2) % Absolute Granulocytes 10.24 H (1.56-6.13) x10^3/uL Basophils # 0.03 (0.01-0.08) x10^3/uL POC Glucometer 53 L 58 L (74 to 106) mg/dL Urine Color (Yellow) Urine Appearance (Clear) Urine pH (4.6-8.0) Ur Specific [place] (1.005-1.030) Urine Protein (Negative) Urine Glucose (UA) (Negative) mg/dL Urine Ketones (Negative) Urine Blood (Negative) Urine Nitrite (Negative) Urine Bilirubin (Negative) Urine Urobilinogen (0.2) mg/dL Ur Leukocyte Esterase (Negative) U Hyaline Cast (Auto) (0-2) /LPF Urine Microscopic RBC (0-5) /HPF Urine Microscopic WBC (0-5) /HPF Ur Epithelial Cells (None Seen) /HPF Urine Bacteria (None Seen) /HPF Urine Culture Reflexed (NO) Assessment/Plan (1) Vaginal delivery Current Visit: Yes Status: Acute Code(s): O80 - ENCOUNTER FOR FULL-TERM UNCOMPLICATED DELIVERY
--- NOTE | 2024-05-23 08:00 | PCM.DS ---
Discharge Summary Date of Admission: 05/22/24 08:34 Admitting Physician: SATURNINO FLORES DO Consults: Consults on Case 05/22/24 20:47 Notify Physician ROUTINE Primary Care Provider: AUDREY COPPOLA Allergies Allergies Penicillins Allergy (Severe, Verified 05/12/24 13:23) Anaphylactic Reaction Hospital Summary - Hospital Course Hospital Course: pt admitted on may 22 for pitocin induction and received epidural at 39 wks ges tation and subsequently delivered live baby boy via without complication at 1827 without complication. during period did very well able to ambulate and tolerate diet. hgb stable at 11 and at this time stable for discharge on may 24. pt had a gestational diabetic on insulin however normal glucose reading period. all questions answered to her satisfaction and was advised to fu in office in 3 wks. pt advised to call me for any issues that may arise upon discharge. - Vitals & Intake/Output Vital Signs: Vital Signs Temperature 98.1 F 05/23/24 03:00 Pulse Rate 72 05/23/24 03:00 Respiratory Rate 18 05/23/24 03:00 Blood Pressure 116/72 05/23/24 03:00 O2 Sat by Pulse Oximetry 98 05/23/24 03:00 Intake & Output: Intake & Output 05/20/24 05/21/24 05/22/24 05/23/24 11:59 11:59 11:59 11:59 Intake Total 1000 220 Output Total 800 Balance 1000 -580 Weight 122.924 kg - Lab Result Diagrams: 05/23/24 04:40 Lab Results-Last 24 Hrs: Lab Results-Last 24 Hours 05/22/24 05/22/24 05/22/24 Range/Units 08:07 09:04 09:56 WBC (3.98-10.04) x10^3/uL RBC (3.93-5.22) x10^6/uL Hgb (11.2-15.7) g/dL Hct (34.1-44.9) % MCV (79.4-94.8) fL MCH (25.6-32.2) pg MCHC (32.2-35.5) g/dL RDW (11.7-14.4) % Plt Count (182-369) x10^3/uL MPV (9.4-12.3) fL Gran % (34.0-71.1) % Immature Gran % (Auto) (0.001-0.429) % Nucleat RBC Rel Count (0.00-0.2) % Eos # (Auto) (0.04-0.36) x10^3/uL Immature Gran # (Auto) (0.001-0.031) x10^3u/L Absolute Lymphs (auto) (1.18-3.74) x10^3/uL Absolute Monos (auto) (0.24-0.86) x10^3/uL Absolute Nucleated RBC (0.00-0.012) x10^3u/L Lymphocytes % (19.3-51.7) % Monocytes % (4.7-12.5) % Eosinophils % (0.7-5.8) % Basophils % (0.1-1.2) % Absolute Granulocytes (1.56-6.13) x10^3/uL Basophils # (0.01-0.08) x10^3/uL POC Glucometer 89 76 (74 to 106) mg/dL Urine Color Yellow (Yellow) Urine Appearance Clear (Clear) Urine pH 6.5 (4.6-8.0) Ur Specific [place] 1.025 (1.005-1.030) Urine Protein Negative (Negative) Urine Glucose (UA) Negative (Negative) mg/dL Urine Ketones Negative (Negative) Urine Blood Negative (Negative) Urine Nitrite Negative (Negative) Urine Bilirubin Negative (Negative) Urine Urobilinogen 0.2 (0.2) mg/dL Ur Leukocyte Esterase Negative (Negative) U Hyaline Cast (Auto) NONE SEEN (0-2) /LPF Urine Microscopic RBC 0-2 (0-5) /HPF Urine Microscopic WBC 3-5 (0-5) /HPF Ur Epithelial Cells None Seen (None Seen) /HPF Urine Bacteria None Seen (None Seen) /HPF Urine Culture Reflexed NO (NO) 05/22/24 05/22/24 05/22/24 Range/Units 12:05 14:05 16:08 WBC (3.98-10.04) x10^3/uL RBC (3.93-5.22) x10^6/uL Hgb (11.2-15.7) g/dL Hct (34.1-44.9) % MCV (79.4-94.8) fL MCH (25.6-32.2) pg MCHC (32.2-35.5) g/dL RDW (11.7-14.4) % Plt Count (182-369) x10^3/uL MPV (9.4-12.3) fL Gran % (34.0-71.1) % Immature Gran % (Auto) (0.001-0.429) % Nucleat RBC Rel Count (0.00-0.2) % Eos # (Auto) (0.04-0.36) x10^3/uL Immature Gran # (Auto) (0.001-0.031) x10^3u/L Absolute Lymphs (auto) (1.18-3.74) x10^3/uL Absolute Monos (auto) (0.24-0.86) x10^3/uL Absolute Nucleated RBC (0.00-0.012) x10^3u/L Lymphocytes % (19.3-51.7) % Monocytes % (4.7-12.5) % Eosinophils % (0.7-5.8) % Basophils % (0.1-1.2) % Absolute Granulocytes (1.56-6.13) x10^3/uL Basophils # (0.01-0.08) x10^3/uL POC Glucometer 68 L 62 L 67 L (74 to 106) mg/dL Urine Color (Yellow) Urine Appearance (Clear) Urine pH (4.6-8.0) Ur Specific [place] (1.005-1.030) Urine Protein (Negative) Urine Glucose (UA) (Negative) mg/dL Urine Ketones (Negative) Urine Blood (Negative) Urine Nitrite (Negative) Urine Bilirubin (Negative) Urine Urobilinogen (0.2) mg/dL Ur Leukocyte Esterase (Negative) U Hyaline Cast (Auto) (0-2) /LPF Urine Microscopic RBC (0-5) /HPF Urine Microscopic WBC (0-5) /HPF Ur Epithelial Cells (None Seen) /HPF Urine Bacteria (None Seen) /HPF Urine Culture Reflexed (NO) 05/22/24 05/23/24 05/23/24 Range/Units 22:12 02:10 04:40 WBC 13.1 H (3.98-10.04) x10^3/uL RBC 4.30 (3.93-5.22) x10^6/uL Hgb 11.2 (11.2-15.7) g/dL Hct 34.0 L (34.1-44.9) % MCV 79.1 L (79.4-94.8) fL MCH 26.0 (25.6-32.2) pg MCHC 32.9 (32.2-35.5) g/dL RDW 13.7 (11.7-14.4) % Plt Count 204 (182-369) x10^3/uL MPV 10.5 (9.4-12.3) fL Gran % 78.0 H (34.0-71.1) % Immature Gran % (Auto) 1.0 H (0.001-0.429) % Nucleat RBC Rel Count 0.0 (0.00-0.2) % Eos # (Auto) 0.20 (0.04-0.36) x10^3/uL Immature Gran # (Auto) 0.13 H (0.001-0.031) x10^3u/L Absolute Lymphs (auto) 1.78 (1.18-3.74) x10^3/uL Absolute Monos (auto) 0.75 (0.24-0.86) x10^3/uL Absolute Nucleated RBC 0.00 (0.00-0.012) x10^3u/L Lymphocytes % 13.6 L (19.3-51.7) % Monocytes % 5.7 (4.7-12.5) % Eosinophils % 1.5 (0.7-5.8) % Basophils % 0.2 (0.1-1.2) % Absolute Granulocytes 10.24 H (1.56-6.13) x10^3/uL Basophils # 0.03 (0.01-0.08) x10^3/uL POC Glucometer 53 L 58 L (74 to 106) mg/dL Urine Color (Yellow) Urine Appearance (Clear) Urine pH (4.6-8.0) Ur Specific [place] (1.005-1.030) Urine Protein (Negative) Urine Glucose (UA) (Negative) mg/dL Urine Ketones (Negative) Urine Blood (Negative) Urine Nitrite (Negative) Urine Bilirubin (Negative) Urine Urobilinogen (0.2) mg/dL Ur Leukocyte Esterase (Negative) U Hyaline Cast (Auto) (0-2) /LPF Urine Microscopic RBC (0-5) /HPF Urine Microscopic WBC (0-5) /HPF Ur Epithelial Cells (None Seen) /HPF Urine Bacteria (None Seen) /HPF Urine Culture Reflexed (NO) Micro Results-Entire Visit: Accuchecks Date 05/22/24 Date 05/22/24 Date 05/22/24 Date 05/22/24 Time 14:00 Time 12:00 Time 10:00 Time 08:05 Final Diagnosis/Problem List - Final Discharge Diagnosis/Problem (1) Vaginal delivery Current Visit: Yes Status: Acute Code(s): O80 - ENCOUNTER FOR FULL-TERM UNCOMPLICATED DELIVERY - Discharge Disposition: Home, Self-Care Condition: Stable Prescriptions: No Action Vit No.179/Iron/Folic [ Tablet] 1 each PO DAILY Aspirin EC 81 mg [Ecotrin 81 mg] 81 mg PO DAILY Insulin Regular, Human [Humulin R] 44 units SQ BREAKFAST Insulin Lispro [Humalog] 22 units SQ BREAKFAST Follow up with: AUDREY COPPOLA [Primary Care Provider] - SATURNINO FLORES DO [ACTIVE STAFF] - 3 weeks
[2024-05-23 10:04] LABS: RPR Non Reactive (Non Reactive)
[2024-05-24 03:02] VITALS: TEMP 98.1
[2024-05-24] MEDS: Adacel Vial IM ONE (09:16)
[2024-05-24 13:27] VITALS: BP 125/69; PULSE 80; RESP 20; O2SAT 97
== END 2024-05-24 15:08 | disposition home or self-care (01) | DRG 807 ==
LOC: OB 05:18 → OBSVTOIN 08:34 → OB 08:34
PROVIDERS: ADMIT Obstetrics & Gynecology; ATTEND Obstetrics & Gynecology
PROC: 10E0XZZ Delivery of Products of Conception, External Approach (ICD-10-PCS; principal; 2024-05-22)
DX: O24.424 Gestational diabetes mellitus in childbirth, insulin controlled (principal); Z37.0 Single live birth; Z3A.39 39 weeks gestation of pregnancy
CPT/HCPCS: 36415; 80307; 81001; 82947; 85025; 86592; 86850; 86900; 86901; 90471; 90715; J2590; A9270-GY

== ENCOUNTER 2024-07-27 03:21 | Emergency (ER) | payer OTHER ==
[2024-07-27 03:41] VITALS: TEMP 97.4
--- NOTE | 2024-07-27 04:27 | ERPHSYRPT ---
- History of Present Illness Time Seen by Provider: 07/27/24 04:00 Historian: patient Exam Limitations: no limitations Patient Subjective Stated Complaint: c/o abdominal pain Triage Nursing Assessment: patient brought self to ED with c/o of left sided abdominal pain that radiates into lower back and left arm. patient stated the pain is 8/10. pain has been going on for a couple days and got worse tonight. patient states she has N/V/D. has vomitted x2, last oral intake at 0200, last BM 0310, patient stated she feels like her stomach is huge. vitals wnl, skin w/n/d, gait steady, patient doesn't appear to be in any distress at this time. Physician History: Patient is a 28-year-old female presents to our ED for evaluation of abdominal pain. Patient states her abdominal pain is primarily left-sided however the pain spans across her entire abdomen. Pain tends to radiate into her low back up into her chest region down her left arm. Patient rates her pain 8 out of 10. Pain associated with some shortness of breath. Patient reports symptoms started approximately 2 days ago. Symptoms are gotten progressively worse. Patient has been experiencing nausea and vomiting. Patient reports 2 episodes of vomiting just prior to arrival. Patient had some diarrhea as well earlier this morning. Patient feels her abdomen is somewhat distended. No other complaints. No fever. No urinary complaints. No trauma. Patient reports she has a history of pancreatitis. Patient voices no other complaints or concerns at this time. Portions of this note were created with voice recognition technology. There may be grammatical, spelling, punctuation or sound alike errors Timing/Duration: day(s) (2 to 3 days ago) Activities at Onset: none Quality: aching Abdominal Pain Onset Location: generalized abdomen Pain Radiation: no radiation (Pain radiates to her back and up towards her left arm) Severity of Pain-Max: moderate Severity of Pain-Current: mild Modifying Factors: Improves With: nothing Associated Symptoms: diarrhea, nausea, vomiting Previous symptoms: no prior history Allergies/Adverse Reactions: Penicillins Allergy (Severe, Verified 07/27/24 03:41) Anaphylactic Reaction Home Medications: PARoxetine HCL [Paroxetine HCl] 20 mg PO DAILY 07/27/24 [History] Hx Tetanus, Diphtheria Vaccination/Date Given: No Hx Influenza Vaccination/Date Given: Yes Hx Pneumococcal Vaccination/Date Given: No Travel Risk - International Travel Have you traveled outside of the country in past 3 weeks: No - Emerging Infectious Disease Are you exhibiting symptoms associated with any current EIDs: Yes Symptoms: Abdominal Pain, Diarrhea, Shortness of Breath, Vomitting - Review of Systems Constitutional: No Symptoms, No Fever, No Chills Eyes: No Symptoms Ears, Nose, & Throat: No Symptoms Respiratory: No Symptoms, No Cough, No Dyspnea Cardiac: No Symptoms, No Chest Pain, No Edema, No Syncope Abdominal/Gastrointestinal: No Symptoms, No Abdominal Pain, No Nausea, No Vomiting, No Diarrhea Genitourinary Symptoms: No Symptoms, No Dysuria Musculoskeletal: No Symptoms, No Back Pain, No Neck Pain Skin: No Symptoms, No Rash Neurological: No Symptoms, No Dizziness, No Focal Weakness, No Sensory Changes Psychological: No Symptoms Endocrine: No Symptoms Hematologic/Lymphatic: No Symptoms Immunological/Allergic: No Symptoms All Other Systems: Reviewed and Negative - Past Medical History Pertinent Past Medical History: Yes Neurological History: No Pertinent History ENT History: No Pertinent History Cardiac History: No Pertinent History Respiratory History: No Pertinent History Endocrine Medical History: Other Musculoskeletal History: No Pertinent History GI Medical History: Pancreatitis History: No Pertinent History Psycho-Social History: Anxiety, Depression Female Reproductive Disorders: No Pertinent History Other Medical History: Gestational Diabetes, Mastitis, Broken Left arm x 3, gallbladder issues - Past Surgical History Past Surgical History: Yes Neuro Surgical History: No Pertinent History Cardiac: No Pertinent History Respiratory: No Pertinent History Gastrointestinal: No Pertinent History Genitourinary: No Pertinent History Musculoskeletal: No Pertinent History Female Surgical History: No Pertinent History Other Surgical History: Breast surgery for mastitis, Cyst removed on back Significant Family History: no pertinent family hx - Female History Hx Last Menstrual Period: 2022 Hx Now: No - Social History Smoking Status: Never smoker Exposure to second hand smoke: No Alcohol Use: None Drug Use: none Patient Lives Alone: No - Social Determinants of Health Will the patient participate in the screening: Yes Do you worry about a steady place to live?: No Do you have any problems with any of the following?: No known problems In the past 12 months,have you had to go without utilities?: No Transportation Issues: No Has anyone in your support network made you feel unsafe?: No Have you or anyone in your house had to go without enough: No - Nursing Vital Signs Nursing Vital Signs: Initial Vital Signs Temperature 97.4 F 07/27/24 03:28 Pulse Rate 93 H 07/27/24 03:28 Respiratory Rate 19 07/27/24 03:28 Blood Pressure 99/76 07/27/24 03:28 O2 Sat by Pulse Oximetry 99 07/27/24 03:28 Pain Scale Pain Intensity 5 - Physical Exam General Appearance: no apparent distress, alert Eye Exam: PERRL/EOMI, eyes nml inspection Ears, Nose, Throat Exam: normal ENT inspection, pharynx normal, moist mucous membranes Neck Exam: normal inspection, non-tender, supple, full range of motion Respiratory Exam: normal breath sounds, lungs clear, No respiratory distress Cardiovascular Exam: regular rate/rhythm, normal heart sounds Gastrointestinal/Abdomen Exam: soft, No tenderness, No mass Back Exam: normal inspection, normal range of motion, No CVA tenderness, No vertebral tenderness Extremity Exam: normal inspection, normal range of motion, pelvis stable Neurologic Exam: alert, oriented x 3, cooperative, normal mood/affect, nml cerebellar function, sensation nml, No motor deficits Skin Exam: normal color, warm, dry SpO2 Interpretation: normal SpO2: 99 O2 Delivery: Room Air - Course Nursing assessment & vital signs reviewed: Yes EKG Interpreted by Me: RATE (97), Sinus Rhythm, NORMAL AXIS, NORMAL INTERVALS, NORMAL QRS Ordered Tests: Active Orders 24 hr Category Date Time Status EKG-ER Only STAT Care 07/27/24 04:02 Active IV Insertion STAT Care 07/27/24 04:23 Active ABDOMEN AND PELVIS W CONTRAST [CT] Stat Exams 07/27/24 04:26 Completed CHEST WITH CONTRAST [CT] Stat Exams 07/27/24 04:25 Completed CBC W DIFF Stat Lab 07/27/24 04:30 Completed CMP Stat Lab 07/27/24 04:30 Completed CULTURE,URINE Stat Lab 07/27/24 04:03 Received HCG QUALITATIVE, URINE Stat Lab 07/27/24 04:40 Completed LIPASE Stat Lab 07/27/24 04:30 Completed TROPONIN Q4H Lab 07/27/24 04:30 Completed TROPONIN Q4H Lab 07/27/24 08:30 Ordered TROPONIN Q4H Lab 07/27/24 12:30 Ordered UA W/RFX UR CULTURE Stat Lab 07/27/24 04:03 Completed Medication Summary Discontinued Medications Generic Name Dose Route Start Last Admin Trade Name Swapna PRN Reason Stop Dose Admin Ketorolac Tromethamine 30 mg 07/27/24 04:38 07/27/24 04:42 Ketorolac Tromethamine 30 Mg/Ml Inj IV 07/27/24 04:39 30 mg STAT ONE Administration Ketorolac Tromethamine Confirm 07/27/24 04:40 Ketorolac Tromethamine 30 Mg/Ml Inj Administered 07/27/24 04:41 Dose 30 mg .ROUTE .STK-MED ONE Ondansetron HCl 4 mg 07/27/24 04:38 07/27/24 04:41 Ondansetron Hcl 4 Mg/2 Ml Vial IV 07/27/24 04:39 4 mg STAT ONE Administration Ondansetron HCl Confirm 07/27/24 04:40 Ondansetron Hcl 4 Mg/2 Ml Vial Administered 07/27/24 04:41 Dose 4 mg .ROUTE .STK-MED ONE Lab/Rad Data: Laboratory Result Diagrams 07/27/24 04:30 07/27/24 04:30 Laboratory Results 07/27/24 07/27/24 07/27/24 Range/Units 04:40 04:30 04:30 WBC (3.98-10.04) x10^3/uL RBC (3.93-5.22) x10^6/uL Hgb (11.2-15.7) g/dL Hct (34.1-44.9) % MCV (79.4-94.8) fL MCH (25.6-32.2) pg MCHC (32.2-35.5) g/dL RDW (11.7-14.4) % Plt Count (182-369) x10^3/uL MPV (9.4-12.3) fL Gran % (34.0-71.1) % Immature Gran % (Auto) (0.001-0.429) % Nucleat RBC Rel Count (0.00-0.2) % Eos # (Auto) (0.04-0.36) x10^3/uL Immature Gran # (Auto) (0.001-0.031) x10^3u/L Absolute Lymphs (auto) (1.18-3.74) x10^3/uL Absolute Monos (auto) (0.24-0.86) x10^3/uL Absolute Nucleated RBC (0.00-0.012) x10^3u/L Lymphocytes % (19.3-51.7) % Monocytes % (4.7-12.5) % Eosinophils % (0.7-5.8) % Basophils % (0.1-1.2) % Absolute Granulocytes (1.56-6.13) x10^3/uL Basophils # (0.01-0.08) x10^3/uL Sodium 136 (135-145) mmol/L Potassium 4.2 (3.5-5.1) mmol/L Chloride 104 (98-107) mmol/L Carbon Dioxide 23 (22-30) mmol/L Anion Gap 13.9 (5-15) MEQ/L BUN 18 H (7-17) mg/dL Creatinine 0.88 (0.52-1.04) mg/dL Estimated GFR 91.7 ML/MIN Glucose 116 H (74-106) mg/dL Calcium 8.6 (8.4-10.2) mg/dL Total Bilirubin 0.50 (0.2-1.3) mg/dL AST 31 (14-36) U/L ALT 25 (0-35) U/L Alkaline Phosphatase 81 (38-126) U/L Troponin I < 0.012 (0.000-0.033) ng/mL Serum Total Protein 7.9 (6.3-8.2) g/dL Albumin 4.9 (3.5-5.0) g/dL Lipase 93 (23-300) U/L Urine Color (Yellow) Urine Appearance (Clear) Urine pH (4.6-8.0) Ur Specific [place] (1.005-1.030) Urine Protein (Negative) Urine Glucose (UA) (Negative) mg/dL Urine Ketones (Negative) Urine Blood (Negative) Urine Nitrite (Negative) Urine Bilirubin (Negative) Urine Urobilinogen (0.2) mg/dL Ur Leukocyte Esterase (Negative) U Hyaline Cast (Auto) (0-2) /LPF Urine Microscopic RBC (0-5) /HPF Urine Microscopic WBC (0-5) /HPF Ur Epithelial Cells (None Seen) /HPF Urine Bacteria (None Seen) /HPF Urine Culture Reflexed (NO) Urine HCG, Qual NEGATIVE (NEGATIVE) 07/27/24 07/27/24 Range/Units 04:30 04:03 WBC 7.4 (3.98-10.04) x10^3/uL RBC 4.83 (3.93-5.22) x10^6/uL Hgb 12.6 (11.2-15.7) g/dL Hct 38.4 (34.1-44.9) % MCV 79.5 (79.4-94.8) fL MCH 26.1 (25.6-32.2) pg MCHC 32.8 (32.2-35.5) g/dL RDW 14.5 H (11.7-14.4) % Plt Count 270 (182-369) x10^3/uL MPV 9.5 (9.4-12.3) fL Gran % 70.3 (34.0-71.1) % Immature Gran % (Auto) 0.7 H (0.001-0.429) % Nucleat RBC Rel Count 0.0 (0.00-0.2) % Eos # (Auto) 0.21 (0.04-0.36) x10^3/uL Immature Gran # (Auto) 0.05 H (0.001-0.031) x10^3u/L Absolute Lymphs (auto) 1.50 (1.18-3.74) x10^3/uL Absolute Monos (auto) 0.42 (0.24-0.86) x10^3/uL Absolute Nucleated RBC 0.00 (0.00-0.012) x10^3u/L Lymphocytes % 20.2 (19.3-51.7) % Monocytes % 5.7 (4.7-12.5) % Eosinophils % 2.8 (0.7-5.8) % Basophils % 0.3 (0.1-1.2) % Absolute Granulocytes 5.21 (1.56-6.13) x10^3/uL Basophils # 0.02 (0.01-0.08) x10^3/uL Sodium (135-145) mmol/L Potassium (3.5-5.1) mmol/L Chloride (98-107) mmol/L Carbon Dioxide (22-30) mmol/L Anion Gap (5-15) MEQ/L BUN (7-17) mg/dL Creatinine (0.52-1.04) mg/dL Estimated GFR ML/MIN Glucose (74-106) mg/dL Calcium (8.4-10.2) mg/dL Total Bilirubin (0.2-1.3) mg/dL AST (14-36) U/L ALT (0-35) U/L Alkaline Phosphatase (38-126) U/L Troponin I (0.000-0.033) ng/mL Serum Total Protein (6.3-8.2) g/dL Albumin (3.5-5.0) g/dL Lipase (23-300) U/L Urine Color Yellow (Yellow) Urine Appearance Clear (Clear) Urine pH 6.5 (4.6-8.0) Ur Specific [place] >=1.030 A (1.005-1.030) Urine Protein Trace A (Negative) Urine Glucose (UA) Negative (Negative) mg/dL Urine Ketones Trace A (Negative) Urine Blood Small A (Negative) Urine Nitrite Negative (Negative) Urine Bilirubin Negative (Negative) Urine Urobilinogen 0.2 (0.2) mg/dL Ur Leukocyte Esterase Negative (Negative) U Hyaline Cast (Auto) NONE SEEN (0-2) /LPF Urine Microscopic RBC 21-50 A (0-5) /HPF Urine Microscopic WBC 0-2 (0-5) /HPF Ur Epithelial Cells Few (None Seen) /HPF Urine Bacteria Rare A (None Seen) /HPF Urine Culture Reflexed YES (NO) Urine HCG, Qual (NEGATIVE) - Progress Progress: improved Progress Note: 28-year-old female presents to emergency department for evaluation of abdominal pain. Physical exam reveals some abdominal distention and generalized tenderness. Overlying soft tissue intact. Laboratory workup essentially nonremarkable. UA significant for microscopic hematuria. CT abdomen pelvis shows mesenteric panniculitis. CT chest negative for PE. Conservative management only. Patient currently has a follow-up appointment scheduled with her [employer] SAF[employer] OFFICER physician. They will discuss the microscopic hematuria. No indication for further workup at this time. Will discharge home. Patient agrees to follow-up as planned. Portions of this note were created with voice recognition technology. There may be grammatical, spelling, punctuation or sound alike errors Complexity of problem addressed is moderate acute complicated no critical care time. Complex of data reviewed and analyzed is moderate. Test ordered test reviewed results analyzed and correlated clinically with history and physical exam. Risk of complication and or risk of morbidity/mortality of patient management is low. Vital stable. Time spent to discharge patient is approximately 15 minutes. Plan of care established for shared decision making. No social determinants of health present to impede follow-up. Portions of this note were created with voice recognition technology. There may be grammatical, spelling, punctuation or sound alike errors 07/27/24 07:22 Counseled pt/family regarding: lab results, diagnosis, need for follow-up, rad results - Departure Departure Disposition: Home Clinical Impression: Mesenteric panniculitis, Hematuria Condition: Stable Critical Care Time: No Referrals: AUDREY COPPOLA [Primary Care Provider] - Follow up/PCP as directed Additional Instructions: Discharge/Care Plan MIHIRBLAKEANDREA ANTHONY was seen on 07/27/24 in the Emergency Room. The patient was counseled regarding Diagnosis,Lab results, Imaging studies, need for follow up and when to return to the Emergency Room. Prescriptions given: Discharge Note I have spoken with the patient and/or caregivers. I have explained the patient's condition, diagnosis and treatment plan based on the information available to me at this time. I have answered the patient's and/or caregiver's questions and addressed any concerns. The patient and/or caregivers have as good understanding of the patient's diagnosis, condition and treatment plan as can be expected at this point. The vital signs have been stable. The patient's condition is stable and appropriate for discharge from the emergency department. The patient will pursue further outpatient evaluation with the primary care physician or other designated or consulting physician as outlined in the discharge instructions. The patient and/or caregivers are agreeable to this plan of care and follow-up instructions have been explained in detail. The patient and/or caregivers have received these instruction. The patient/and or caregivers are aware that any significant change in condition or worsening of symptoms should prompt an immediate return to this or the closest emergency department or call 911.
[2024-07-27] MEDS ORDERED: TORAdol 30 mg Injection ONE (04:40)
[2024-07-27] MEDS ORDERED: Zofran 4 MG/2 ML VIAL ONE (04:40)
[2024-07-27] MEDS: Zofran 4 MG/2 ML VIAL IV ONE (04:41)
[2024-07-27] MEDS: TORAdol 30 mg Injection IV ONE (04:42)
[2024-07-27 04:55] LABS: Absolute Neutrophil Ct (ANC) 5.21 x10^3/uL (1.56-6.13); BASOPHIL % 0.3 % (0.1-1.2); Basophil (Absolute #) 0.02 x10^3/uL (0.01-0.08); Eosinophil % 2.8 % (0.7-5.8); Eosinophil (Absolute #) 0.21 x10^3/uL (0.04-0.36); Hematocrit 38.4 % (34.1-44.9); Hemoglobin 12.6 g/dL (11.2-15.7); IMMATURE GRAN # 0.05 x10^3u/L (0.001-0.031); IMMATURE GRAN % 0.7 % (0.001-0.429); Lymphocytes % 20.2 % (19.3-51.7); Mean Cell Volume 79.5 fL (79.4-94.8); Mean Corpuscular Hemoglobin 26.1 pg (25.6-32.2); Mean Corpuscular Hgb Concent. 32.8 g/dL (32.2-35.5); Mean Platelet Volume 9.5 fL (9.4-12.3); Monocyte (Absolute #) 0.42 x10^3/uL (0.24-0.86); Monocytes % 5.7 % (4.7-12.5); Neutrophil % 70.3 % (34.0-71.1); Platelet Count 270 x10^3/uL (182-369); Red Blood Count 4.83 x10^6/uL (3.93-5.22); Red Cell Distribution Width 14.5 % (11.7-14.4); White Blood Count 7.4 x10^3/uL (3.98-10.04)
[2024-07-27 05:00] LABS: HCG URINE TEST NEGATIVE (NEGATIVE)
[2024-07-27 05:05] LABS: Appearance Clear (Clear); Bacteria Rare /HPF (None Seen); Bilirubin Negative (Negative); Blood Small (Negative); Epithelial Cells Few /HPF (None Seen); Glucose, Urine Negative (Negative); Hyaline Casts NONE SEEN /LPF (0-2); Ketones Trace (Negative); Leukocyte Esterase Negative (Negative); Nitrite Negative (Negative); Ph 6.5 (4.6-8.0); Protein,Urine Dip Trace (Negative); RBC 21-50 /HPF (0-5); Specific Gravity >=1.030 (1.005-1.030); Urobilinogen 0.2 mg/dL (0.2); WBC 0-2 /HPF (0-5)
[2024-07-27 05:09] LABS: ALBUMIN 4.9 g/dL (3.5-5.0); ANION GAP 13.9 MEQ/L (5-15); BILIRUBIN,TOTAL 0.5 mg/dL (0.2-1.3); Calcium 8.6 mg/dL (8.4-10.2); Creatinine 1 0.88 mg/dL (0.52-1.04); EST GLOMERULAR FILTRATION RATE 91.7 ML/MIN; Potassium 4.2 mmol/L (3.5-5.1); Total Protein 7.9 g/dL (6.3-8.2)
--- NOTE | 2024-07-27 06:38 | XRAY ---
CLINICAL HISTORY: pain COMPARISON: No prior studies are available for comparison. TECHNIQUE: CT of the abdomen and pelvis was performed with contrast, with the following protocol: axial images with, and reconstructed coronal and sagittal images. 80cc of isovue 370 was administered intravenously. One of the following dose reduction techniques was utilized for this exam: Automated exposure control, adjustment of the mA and/or kV according to patient size, and use of iterative reconstruction. DLP: 2785.71 mGy-cm, CTDI: 18.58 mGy. FINDINGS: Abdomen: Liver: Enlarged liver, right lobe span is 22.8 cm. Normal in shape, and density. No focal lesions, cysts, or masses were identified. Hepatic vasculature and biliary ducts are unremarkable. Gallbladder and Biliary System: The gallbladder is normal in size and shape. No wall thickening, pericholecystic fluid, or gallstones were identified. The common bile duct is normal in caliber without dilation. Pancreas: Pancreatic head, body, and tail are visualized and appear normal in size and density. No pancreatic masses or calcifications were noted. The pancreatic duct is not dilated. Spleen: Mild enlarged spleen measures 14.4 cm. Normal in shape, and density. No splenic lesions or masses were identified. Appendix: The appendix is normal in size without ezequiel appendiceal fat stranding and without an appendicolith. No evidence of appendiceal abscess or perforation. Kidneys and Adrenal Glands: Both kidneys are normal in size, shape, and position. Cortical thickness is within normal limits. No renal calculi or hydronephrosis. Adrenal glands are unremarkable with no evidence of masses or hyperplasia. Pelvis: Urinary Bladder: Normal in contour and wall thickness. No intraluminal lesions were identified. Uterus: Normal in size and contour. No masses or abnormal thickening. Ovaries: Not well visualized but no gross abnormalities were noted. Vagina: Normal in contour and wall thickness. Cervix: No evidence of mass or abnormal thickening. Peritoneal and Retroperitoneal Structures: Mid-abdominal casa mesenteric fat with multiple mesenteric nodes noted. No free fluid or abnormal fluid collections were identified within the abdomen or pelvis. No lymphadenopathy was noted. Bowel: The visualized bowel loops are normal in caliber and appearance. No evidence of bowel obstruction or wall thickening. Bones and Soft Tissues: Pelvic bones and soft tissues are unremarkable. No fractures or abnormal masses were identified. IMPRESSION: 1. Hepatospleenemegaly, Clinical, and laboratory correlations are needed. 2. Mid-abdominal mesenteric panniculitis. 3. Otherwise, no evidence of acute intra-abdominal pathology. Clinical correlation is recommended for further evaluation. Electronically Signed by: Anai Lozano MD. (07/27/2024 06:35:15 EST)
--- NOTE | 2024-07-27 06:48 | XRAY ---
CLINICAL HISTORY: pain COMPARISON: None. TECHNIQUE: Contiguous axial CT angiography images of the chest were acquired with the administration of intravenous contrast. One of these 3D techniques was utilized: Maximum Intensity Pixel (MIP), 3D Reconstructed Images, Volume Rendered Images, Surface Shaded Rendering. Coronal and sagittal reconstructions were also obtained. One of the following dose reduction techniques were utilized for this exam: Automated exposure control, adjustment of the mA and/or kV according to patient size, and use of iterative reconstruction FINDINGS: Pulmonary arteries: Suboptimal bolus timing with faint opacification of the pulmonary arteries. Within this limitation, no obvious pulmonary thromboembolism was detected. Lungs: Lungs are clear with no evidence of consolidation, collapse, or focal lesions. No ground-glass opacities or interstitial changes. No pleural effusion or pleural thickening. Mediastinum: Few para-esophgeal calcific small lymph nodes noted. No mediastinal mass or abnormal lymphadenopathy. Normal appearance of the thymus. Hilar Structures: Normal size and configuration, no enlargement. Heart and Great Vessels: Normal heart size and configuration. No pericardial effusion. Normal caliber and course of the thoracic aorta and other great vessels. No significant atherosclerosis or aneurysm. Normal enhancement of the great vessels post-contrast. Bones: No fractures or lytic/sclerotic lesions. Normal bone density and alignment. No evidence of rib fractures. Chest Wall: No masses or soft tissue abnormalities. IMPRESSION: Suboptimal bolus timing with faint opacification of the pulmonary arteries. Within this limitation, no obvious pulmonary thromboembolism was detected. Normal CT of the chest with contrast. Electronically Signed by: Anai Lozano MD. (07/27/2024 06:44:26 EST)
[2024-07-27 07:18] VITALS: O2SAT 99
[2024-07-27 07:24] VITALS: BP 114/64; PULSE 62; RESP 20
== END 2024-07-27 07:05 | disposition home or self-care (01) ==
LOC: ED 03:21
DX: K65.4 Sclerosing mesenteritis (principal); R31.9 Hematuria, unspecified; R10.9 Unspecified abdominal pain; M54.50 Low back pain, unspecified; R07.9 Chest pain, unspecified; R11.2 Nausea with vomiting, unspecified; Z79.899 Other long term (current) drug therapy
CPT/HCPCS: 36415; 71260; 74177; 80053; 81001; 81025; 83690; 84484; 85025; 87086; 93005; 96374; 96375; 99284; 99285; J1885; J2405

== ENCOUNTER 2024-07-30 12:25 | Emergency (ER) | payer OTHER ==
[2024-07-30 12:50] VITALS: RESP 18; TEMP 98.3
--- NOTE | 2024-07-30 13:44 | ERPHSYRPT ---
- History of Present Illness Time Seen by Provider: 07/30/24 13:41 Historian: patient Exam Limitations: no limitations Patient Subjective Stated Complaint: C/O abdominal pain (entire upper abdomen radiating into her back). Triage Nursing Assessment: Patient ambulated back to ER without difficulties. She is alert and oriented. No SOB. SKin tone normal. CLOUD WNL. Urine specimen obtained. Physician History: Patient is 28-year-old female with significant past medical history of recent 2 months ago, was seen in the emergency room 3 days ago was diagnosed with mesenteric lymphadenitis as well as hepatosplenomegaly. She was sent home with a appropriate treatment but her pain continues to get worse and also de veloped abdominal distention so she came to the emergency room. She denies any fever chills nausea vomiting or blood in the stool or urine. Timing/Duration: day(s) (3-4 days) Activities at Onset: none Abdominal Pain Onset Location: generalized abdomen Pain Radiation: back Severity of Pain-Max: moderate Severity of Pain-Current: moderate Modifying Factors: Improves With: nothing Associated Symptoms: denies symptoms Previous symptoms: recently seen Body Map: 1 - pain Allergies/Adverse Reactions: Penicillins Allergy (Severe, Verified 07/30/24 12:32) Anaphylactic Reaction Home Medications: PARoxetine HCL [Paroxetine HCl] 20 mg PO DAILY 07/27/24 [History] Hx Tetanus, Diphtheria Vaccination/Date Given: No Hx Influenza Vaccination/Date Given: Yes Hx Pneumococcal Vaccination/Date Given: No Immunizations Up to Date: Yes Travel Risk - International Travel Have you traveled outside of the country in past 3 weeks: No - Emerging Infectious Disease Are you exhibiting symptoms associated with any current EIDs: Yes Symptoms: Abdominal Pain - Review of Systems Constitutional: No Fever, No Chills Eyes: No Symptoms Ears, Nose, & Throat: No Symptoms Respiratory: No Cough, No Dyspnea Cardiac: No Chest Pain, No Edema, No Syncope Abdominal/Gastrointestinal: Abdominal Pain, No Nausea, No Vomiting, No Diarrhea Genitourinary Symptoms: No Dysuria Musculoskeletal: No Back Pain, No Neck Pain Skin: No Rash Neurological: No Dizziness, No Focal Weakness, No Sensory Changes Psychological: No Symptoms Endocrine: No Symptoms All Other Systems: Reviewed and Negative - Past Medical History Pertinent Past Medical History: Yes Neurological History: No Pertinent History ENT History: No Pertinent History Cardiac History: No Pertinent History Respiratory History: No Pertinent History Endocrine Medical History: Other Musculoskeletal History: No Pertinent History GI Medical History: Gallbladder Disease, Pancreatitis History: No Pertinent History Psycho-Social History: Anxiety, Depression Female Reproductive Disorders: No Pertinent History Other Medical History: Gestational Diabetes, Mastitis, Broken Left arm x 3 - Past Surgical History Past Surgical History: Yes Neuro Surgical History: No Pertinent History Cardiac: No Pertinent History Respiratory: No Pertinent History Gastrointestinal: No Pertinent History Genitourinary: No Pertinent History Musculoskeletal: No Pertinent History Female Surgical History: No Pertinent History Other Surgical History: Breast surgery for mastitis, Cyst removed on back Significant Family History: no pertinent family hx - Female History Hx Last Menstrual Period: Over a year ago Hx Now: No - Social History Smoking Status: Never smoker Exposure to second hand smoke: No Alcohol Use: None Drug Use: none Patient Lives Alone: No - Social Determinants of Health Will the patient participate in the screening: Yes Do you worry about a steady place to live?: No Do you have any problems with any of the following?: No known problems In the past 12 months,have you had to go without utilities?: No Transportation Issues: No Has anyone in your support network made you feel unsafe?: No Have you or anyone in your house had to go without enough: No - Nursing Vital Signs Nursing Vital Signs: Initial Vital Signs Temperature 98.3 F 07/30/24 12:35 Pulse Rate 78 07/30/24 12:35 Respiratory Rate 18 07/30/24 12:35 Blood Pressure 111/66 07/30/24 12:35 O2 Sat by Pulse Oximetry 98 07/30/24 12:35 Pain Scale Pain Intensity 8 - Physical Exam General Appearance: no apparent distress, alert Eye Exam: PERRL/EOMI, eyes nml inspection Ears, Nose, Throat Exam: normal ENT inspection, pharynx normal, moist mucous membranes Neck Exam: normal inspection, non-tender, supple, full range of motion Respiratory Exam: normal breath sounds, lungs clear, No respiratory distress Cardiovascular Exam: regular rate/rhythm, normal heart sounds Gastrointestinal/Abdomen Exam: soft, No tenderness, No mass Back Exam: normal inspection, normal range of motion, No CVA tenderness, No vertebral tenderness Extremity Exam: normal inspection, normal range of motion, pelvis stable Neurologic Exam: alert, oriented x 3, cooperative, normal mood/affect, nml cerebellar function, sensation nml, No motor deficits Skin Exam: normal color, warm, dry SpO2: 98 - Course Nursing assessment & vital signs reviewed: Yes Ordered Tests: Active Orders 24 hr Category Date Time Status AMYLASE Stat Lab 07/30/24 14:15 Completed CBC W DIFF Stat Lab 07/30/24 14:15 Completed CMP Stat Lab 07/30/24 14:15 Completed HCG QUALITATIVE, SERUM Stat Lab 07/30/24 14:15 Completed LDH-LACTATE DEHYDROGENASE Stat Lab 07/30/24 14:15 Completed LIPASE Stat Lab 07/30/24 14:15 Completed UA W/RFX UR CULTURE Stat Lab 07/30/24 13:40 Completed Medication Summary Discontinued Medications Generic Name Dose Route Start Last Admin Trade Name Freq PRN Reason Stop Dose Admin Famotidine 20 mg 07/30/24 13:25 07/30/24 13:59 Famotidine 20 Mg/1 Vial IV 07/30/24 13:26 20 mg STAT ONE Administration Famotidine Confirm 07/30/24 13:49 Famotidine 20 Mg/1 Vial Administered 07/30/24 13:50 Dose 20 mg IV .STK-MED ONE Sodium Chloride 1,000 mls @ 999 mls/hr 07/30/24 13:25 07/30/24 13:57 Sodium Chloride 0.9% 1000 Ml IV 07/30/24 14:25 999 mls/hr .Q1H1M STA Administration Sodium Chloride Confirm 07/30/24 13:49 Sodium Chloride 0.9% 1000 Ml Administered 07/30/24 13:50 Dose 1,000 mls @ ud .ROUTE .STK-MED ONE Ketorolac Tromethamine 30 mg 07/30/24 13:25 07/30/24 13:59 Ketorolac Tromethamine 30 Mg/Ml Inj IV 07/30/24 13:26 30 mg STAT ONE Administration Ketorolac Tromethamine Confirm 07/30/24 13:49 Ketorolac Tromethamine 30 Mg/Ml Inj Administered 07/30/24 13:50 Dose 30 mg .ROUTE .STK-MED ONE Pantoprazole Sodium 40 mg 07/30/24 13:25 07/30/24 13:59 Pantoprazole 40 Mg Vial IV 07/30/24 13:26 40 mg STAT ONE Administration Pantoprazole Sodium Confirm 07/30/24 13:49 Pantoprazole 40 Mg Vial Administered 07/30/24 13:50 Dose 40 mg IV .STK-MED ONE Lab/Rad Data: Laboratory Result Diagrams 07/30/24 14:15 07/30/24 14:15 Laboratory Results 07/30/24 07/30/24 07/30/24 Range/Units 14:15 14:15 14:15 WBC 7.2 (3.98-10.04) x10^3/uL RBC 4.77 (3.93-5.22) x10^6/uL Hgb 12.0 (11.2-15.7) g/dL Hct 37.8 (34.1-44.9) % MCV 79.2 L (79.4-94.8) fL MCH 25.2 L (25.6-32.2) pg MCHC 31.7 L (32.2-35.5) g/dL RDW 13.9 (11.7-14.4) % Plt Count 245 (182-369) x10^3/uL MPV 9.3 L (9.4-12.3) fL Gran % 62.0 (34.0-71.1) % Immature Gran % (Auto) 0.7 H (0.001-0.429) % Nucleat RBC Rel Count 0.0 (0.00-0.2) % Eos # (Auto) 0.20 (0.04-0.36) x10^3/uL Immature Gran # (Auto) 0.05 H (0.001-0.031) x10^3u/L Absolute Lymphs (auto) 2.04 (1.18-3.74) x10^3/uL Absolute Monos (auto) 0.42 (0.24-0.86) x10^3/uL Absolute Nucleated RBC 0.00 (0.00-0.012) x10^3u/L Lymphocytes % 28.4 (19.3-51.7) % Monocytes % 5.8 (4.7-12.5) % Eosinophils % 2.8 (0.7-5.8) % Basophils % 0.3 (0.1-1.2) % Absolute Granulocytes 4.45 (1.56-6.13) x10^3/uL Basophils # 0.02 (0.01-0.08) x10^3/uL Sodium 137 (135-145) mmol/L Potassium 3.8 (3.5-5.1) mmol/L Chloride 106 (98-107) mmol/L Carbon Dioxide 21 L (22-30) mmol/L Anion Gap 14.8 (5-15) MEQ/L BUN 12 (7-17) mg/dL Creatinine 0.58 (0.52-1.04) mg/dL Estimated GFR 126.3 ML/MIN Glucose 91 (74-106) mg/dL Calcium 9.0 (8.4-10.2) mg/dL Total Bilirubin 0.50 (0.2-1.3) mg/dL AST 28 (14-36) U/L ALT 27 (0-35) U/L Alkaline Phosphatase 98 (38-126) U/L Lactate Dehydrogenase 181 (120-246) U/L Serum Total Protein 7.6 (6.3-8.2) g/dL Albumin 4.7 (3.5-5.0) g/dL Amylase 56 (30-110) U/L Lipase 76 (23-300) U/L Serum HCG, Qual NEGATIVE (NEGATIVE) Urine Color (Yellow) Urine Appearance (Clear) Urine pH (4.6-8.0) Ur Specific [place] (1.005-1.030) Urine Protein (Negative) Urine Glucose (UA) (Negative) mg/dL Urine Ketones (Negative) Urine Blood (Negative) Urine Nitrite (Negative) Urine Bilirubin (Negative) Urine Urobilinogen (0.2) mg/dL Ur Leukocyte Esterase (Negative) U Hyaline Cast (Auto) (0-2) /LPF Urine Microscopic RBC (0-5) /HPF Urine Microscopic WBC (0-5) /HPF Ur Epithelial Cells (None Seen) /HPF Urine Bacteria (None Seen) /HPF Urine Culture Reflexed (NO) 07/30/24 Range/Units 13:40 WBC (3.98-10.04) x10^3/uL RBC (3.93-5.22) x10^6/uL Hgb (11.2-15.7) g/dL Hct (34.1-44.9) % MCV (79.4-94.8) fL MCH (25.6-32.2) pg MCHC (32.2-35.5) g/dL RDW (11.7-14.4) % Plt Count (182-369) x10^3/uL MPV (9.4-12.3) fL Gran % (34.0-71.1) % Immature Gran % (Auto) (0.001-0.429) % Nucleat RBC Rel Count (0.00-0.2) % Eos # (Auto) (0.04-0.36) x10^3/uL Immature Gran # (Auto) (0.001-0.031) x10^3u/L Absolute Lymphs (auto) (1.18-3.74) x10^3/uL Absolute Monos (auto) (0.24-0.86) x10^3/uL Absolute Nucleated RBC (0.00-0.012) x10^3u/L Lymphocytes % (19.3-51.7) % Monocytes % (4.7-12.5) % Eosinophils % (0.7-5.8) % Basophils % (0.1-1.2) % Absolute Granulocytes (1.56-6.13) x10^3/uL Basophils # (0.01-0.08) x10^3/uL Sodium (135-145) mmol/L Potassium (3.5-5.1) mmol/L Chloride (98-107) mmol/L Carbon Dioxide (22-30) mmol/L Anion Gap (5-15) MEQ/L BUN (7-17) mg/dL Creatinine (0.52-1.04) mg/dL Estimated GFR ML/MIN Glucose (74-106) mg/dL Calcium (8.4-10.2) mg/dL Total Bilirubin (0.2-1.3) mg/dL AST (14-36) U/L ALT (0-35) U/L Alkaline Phosphatase (38-126) U/L Lactate Dehydrogenase (120-246) U/L Serum Total Protein (6.3-8.2) g/dL Albumin (3.5-5.0) g/dL Amylase (30-110) U/L Lipase (23-300) U/L Serum HCG, Qual (NEGATIVE) Urine Color Yellow (Yellow) Urine Appearance Clear (Clear) Urine pH 5.0 (4.6-8.0) Ur Specific [place] 1.020 (1.005-1.030) Urine Protein Negative (Negative) Urine Glucose (UA) Negative (Negative) mg/dL Urine Ketones Negative (Negative) Urine Blood Negative (Negative) Urine Nitrite Negative (Negative) Urine Bilirubin Negative (Negative) Urine Urobilinogen 0.2 (0.2) mg/dL Ur Leukocyte Esterase Negative (Negative) U Hyaline Cast (Auto) NONE SEEN (0-2) /LPF Urine Microscopic RBC 0-2 (0-5) /HPF Urine Microscopic WBC 3-5 (0-5) /HPF Ur Epithelial Cells Rare (None Seen) /HPF Urine Bacteria Rare A (None Seen) /HPF Urine Culture Reflexed NO (NO) CT/ABDOMEN AND PELVIS W CONTRAST CLINICAL HISTORY: pain COMPARISON: No prior studies are available for comparison. TECHNIQUE: CT of the abdomen and pelvis was performed with contrast, with the following protocol: axial images with, and reconstructed coronal and sagittal images. 80cc of isovue 370 was administered intravenously. One of the following dose reduction techniques was utilized for this exam: Automated exposure control, adjustment of the mA and/or kV according to patient size, and use of iterative reconstruction. DLP: 2785.71 mGy-cm, CTDI: 18.58 mGy. FINDINGS: Abdomen: Liver: Enlarged liver, right lobe span is 22.8 cm. Normal in shape, and density. No focal lesions, cysts, or masses were identified. Hepatic vasculature and biliary ducts are unremarkable. Gallbladder and Biliary System: The gallbladder is normal in size and shape. No wall thickening, pericholecystic fluid, or gallstones were identified. The common bile duct is normal in caliber without dilation. Pancreas: Pancreatic head, body, and tail are visualized and appear normal in size and density. No pancreatic masses or calcifications were noted. The pancreatic duct is not dilated. Spleen: Mild enlarged spleen measures 14.4 cm. Normal in shape, and density. No splenic lesions or masses were identified. Appendix: The appendix is normal in size without ezequiel appendiceal fat stranding and without an appendicolith. No evidence of appendiceal abscess or perforation. Kidneys and Adrenal Glands: Both kidneys are normal in size, shape, and position. Cortical thickness is within normal limits. No renal calculi or hydronephrosis. Adrenal glands are unremarkable with no evidence of masses or hyperplasia. Pelvis: Urinary Bladder: Normal in contour and wall thickness. No intraluminal lesions were identified. Uterus: Normal in size and contour. No masses or abnormal thickening. Ovaries: Not well visualized but no gross abnormalities were noted. Vagina: Normal in contour and wall thickness. Cervix: No evidence of mass or abnormal thickening. Peritoneal and Retroperitoneal Structures: Mid-abdominal casa mesenteric fat with multiple mesenteric nodes noted. No free fluid or abnormal fluid collections were identified within the abdomen or pelvis. No lymphadenopathy was noted. Bowel: The visualized bowel loops are normal in caliber and appearance. No evidence of bowel obstruction or wall thickening. Bones and Soft Tissues: Pelvic bones and soft tissues are unremarkable. No fractures or abnormal masses were identified. IMPRESSION: 1. Hepatospleenemegaly, Clinical, and laboratory correlations are needed. 2. Mid-abdominal mesenteric panniculitis. 3. Otherwise, no evidence of acute intra-abdominal pathology. Clinical correlation is recommended for further evaluation. - Progress Progress: improved Counseled pt/family regarding: lab results, diagnosis, need for follow-up Medical Desision Making - Independent Historian Additional History obtained from: Spouse - Diagnostic Testing Diagnostic test were ordered, analyzed, and reviewed by me: Yes - Risk of complications Minimal Risk: Minimal risk of morbidity - Departure Departure Disposition: Home Clinical Impression: Mesenteric panniculitis, Abdominal pain in female, Hepatosplenomegaly Condition: Stable Critical Care Time: No Referrals: AUDREY COPPOLA [Primary Care Provider] - Follow up/PCP as directed Instructions: Abdominal pain Additional Instructions: Discharge/Care Plan KENBLAKEANDREA ANTHONY was seen on 07/30/24 in the Emergency Room. The patient was counseled regarding Diagnosis,Lab results, Imaging studies, need for follow up and when to return to the Emergency Room. Prescriptions given: Discharge Note I have spoken with the patient and/or caregivers. I have explained the patient's condition, diagnosis and treatment plan based on the information available to me at this time. I have answered the patient's and/or caregiver's questions and addressed any concerns. The patient and/or caregivers have as good understanding of the patient's diagnosis, condition and treatment plan as can be expected at this point. The vital signs have been stable. The patient's condition is stable and appropriate for discharge from the emergency department. The patient will pursue further outpatient evaluation with the primary care physician or other designated or consulting physician as outlined in the discharge instructions. The patient and/or caregivers are agreeable to this plan of care and follow-up instructions have been explained in detail. The patient and/or caregivers have received these instruction. The patient/and or caregivers are aware that any significant change in condition or worsening of symptoms should prompt an immediate return to this or the closest emergency department or call 911. ANDREA CARBAJAL was seen on 07/30/24 n the Emergency Room. At that time you were treated for an emergent condition, during your visit Laboratory, Radiology and/or other procedures may have been ordered. It is very important that you follow-up with your Primary Care Physician AUDREY COPPOLA within the next 24-48 hours to review your Emergency Room visit and the final results of testing that was ordered. Some test results such as Urine Cultures, Blood Cultures, and other cultures if ordered will not be finalized for 24-48 hours. If you do not have a Primary Care Provider please call the medical records department at [phone] ext [phone] to obtain a copy of your results or you may sign into our patient portal to obtain these results by visiting us @ [email or web address] and completing the following steps: 1. Click on the Patient Portal link 2. Click the Patient Self Enrollment Link to complete the enrollment form and e ntering your 3. Once the enrollment form is completed you will receive an email with a temporary ID and password at the email address you provided. 4. Next choose a user name and password. Your user name must be at least 4 characters long and your password must be at least 4 characters long. 5. Choose a security question from the list and provide your answer to the question. If you already have signed into the Health Portal you may access your Health Care Information 25/01 by the following steps: 1. Login to our website @ [email or web address] 2. Enter your original user name and password. FAQS The [facility] Health Portal is an online tool that contains your Lab Results, Radiology Reports, Visit History, Discharge Instructions and Health Summary Lab and Radiology Results will not be available for 72 hours on the portal. The Portal is a secure site, passwords are encryted and URLs are re-written so they cannot be copied and pasted. You and authorized family members are the only ones who can access your Portal. Also there is a timeout feature that protects your information if you leave the Portal page open. If you have technical difficulty please use the Contact Us link on the page this will allow you to submit any questions you have regarding the Portal or you may contact the Medical Record Department at [phone].
[2024-07-30] MEDS ORDERED: Pepcid 20 MG VIAL IV ONE (13:49)
[2024-07-30] MEDS ORDERED: PROTONIX 40 MG IV IV ONE (13:49)
[2024-07-30] MEDS ORDERED: Sodium Chloride 0.9% 1000 ML 1,000 ML ONE (13:49)
[2024-07-30] MEDS ORDERED: TORAdol 30 mg Injection ONE (13:49)
[2024-07-30 13:53] LABS: Appearance Clear (Clear); Bacteria Rare /HPF (None Seen); Bilirubin Negative (Negative); Blood Negative (Negative); Epithelial Cells Rare /HPF (None Seen); Glucose, Urine Negative (Negative); Hyaline Casts NONE SEEN /LPF (0-2); Ketones Negative (Negative); Leukocyte Esterase Negative (Negative); Nitrite Negative (Negative); Protein,Urine Dip Negative (Negative); RBC 0-2 /HPF (0-5); Urobilinogen 0.2 mg/dL (0.2)
[2024-07-30] MEDS: Sodium Chloride 0.9% 1000 ML 1,000 ML IV STA (13:57)
[2024-07-30] MEDS: TORAdol 30 mg Injection IV ONE (13:59)
[2024-07-30] MEDS: PROTONIX 40 MG IV IV ONE (13:59)
[2024-07-30] MEDS: Pepcid 20 MG VIAL IV ONE (13:59)
[2024-07-30 14:19] LABS: Absolute Neutrophil Ct (ANC) 4.45 x10^3/uL (1.56-6.13); BASOPHIL % 0.3 % (0.1-1.2); Basophil (Absolute #) 0.02 x10^3/uL (0.01-0.08); Eosinophil % 2.8 % (0.7-5.8); Hematocrit 37.8 % (34.1-44.9); IMMATURE GRAN # 0.05 x10^3u/L (0.001-0.031); IMMATURE GRAN % 0.7 % (0.001-0.429); Lymphocyte (Absolute #) 2.04 x10^3/uL (1.18-3.74); Lymphocytes % 28.4 % (19.3-51.7); Mean Cell Volume 79.2 fL (79.4-94.8); Mean Corpuscular Hemoglobin 25.2 pg (25.6-32.2); Mean Corpuscular Hgb Concent. 31.7 g/dL (32.2-35.5); Mean Platelet Volume 9.3 fL (9.4-12.3); Monocyte (Absolute #) 0.42 x10^3/uL (0.24-0.86); Monocytes % 5.8 % (4.7-12.5); Platelet Count 245 x10^3/uL (182-369); Red Blood Count 4.77 x10^6/uL (3.93-5.22); Red Cell Distribution Width 13.9 % (11.7-14.4); White Blood Count 7.2 x10^3/uL (3.98-10.04)
[2024-07-30 14:22] VITALS: BP 106/75; PULSE 72
[2024-07-30 14:36] LABS: HCG SERUM TEST NEGATIVE (NEGATIVE)
[2024-07-30 14:37] LABS: ALBUMIN 4.7 g/dL (3.5-5.0); ANION GAP 14.8 MEQ/L (5-15); BILIRUBIN,TOTAL 0.5 mg/dL (0.2-1.3); Creatinine 1 0.58 mg/dL (0.52-1.04); EST GLOMERULAR FILTRATION RATE 126.3 ML/MIN; Potassium 3.8 mmol/L (3.5-5.1); Total Protein 7.6 g/dL (6.3-8.2)
[2024-07-30 14:49] VITALS: O2SAT 98
== END 2024-07-30 14:57 | disposition home or self-care (01) ==
LOC: ED 12:25
DX: K65.4 Sclerosing mesenteritis (principal); R10.9 Unspecified abdominal pain; R16.2 Hepatomegaly with splenomegaly, not elsewhere classified; R14.0 Abdominal distension (gaseous); Z79.899 Other long term (current) drug therapy
CPT/HCPCS: 36415; 80053; 81001; 82150; 83615; 83690; 84703; 85025; 96374; 96375; 99284; 99285; J1885